=== PATIENT | male | born 1950 | race African-American/Black ===

== ENCOUNTER 2018-12-31 09:40 | Outpatient (CLI) | payer MEDICARE, MEDICAID ==
[2018-12-31 10:15] LABS: APPEARANCE,URINE CLEAR; BILIRUBIN, URINE NEGATIVE (NEGATIVE); COLOR,URINE PALE YELLOW; GLUCOSE, URINE (UA) NEGATIVE (NEGATIVE); KETONES,URINE NEGATIVE (NEGATIVE); LEUKOCYTE ESTERASE ,URINE NEGATIVE (NEGATIVE); NITRITE,URINE NEGATIVE (NEGATIVE); PH,URINE 8 (4.5-8.0); PROTEIN,URINE 3+ (NEGATIVE); UROBILINOGEN,URINE NORMAL MG/DL (0.0-1.0)
[2018-12-31 10:17] LABS: BASOPHILS % (AUTO) 1.2 % (0.0-2.0); EOSINOPHILS % (AUTO) 5.6 % (0.0-3.0); HEMATOCRIT 31.2 % (42.0-52.0); HEMOGLOBIN 10.2 G/DL (14.2-18.0); LYMPHOCYTES % (AUTO) 25.3 % (20.0-45.0); MEAN CORPUSCULAR VOLUME 85 FL (80-99); MONOCYTES % (AUTO) 10.3 % (1.0-10.0); NEUTROPHILS % (AUTO) 57.6 % (45.0-75.0); PLATELET COUNT 104 K/UL (150-450); RED BLOOD COUNT 3.67 M/UL (4.70-6.10); RED CELL DISTRIBUTION WIDTH 13.8 % (11.6-14.8); WHITE BLOOD COUNT 5.6 K/UL (4.8-10.8)
[2018-12-31 10:36] LABS: ALANINE AMINOTRANSFERASE 16 U/L (12-78); ALBUMIN 3.2 G/DL (3.4-5.0); ALBUMIN/GLOBULIN RATIO 0.6 (1.0-2.7); ALKALINE PHOSPHATASE 155 U/L (46-116); ANION GAP 11 mmol/L (5-15); ASPARTATE AMINO TRANSFERASE 24 U/L (15-37); BILIRUBIN,TOTAL 0.3 MG/DL (0.2-1.0); BLOOD UREA NITROGEN 15 mg/dL (7-18); CALCIUM 9.2 MG/DL (8.5-10.1); CARBON DIOXIDE 27 MMOL/L (21-32); CHLORIDE 103 MMOL/L (98-107); CHOLESTEROL 152 MG/DL (< 200); CREATININE 1.5 MG/DL (0.55-1.30); HDL CHOLESTEROL 46 MG/DL (40-60); SODIUM 141 MMOL/L (136-145); TRIGLYCERIDES 99 MG/DL (30-150)
== END 2018-12-31 11:40 | disposition home or self-care (01) ==
LOC: LAB 09:40
DX: I10 Essential (primary) hypertension (principal); E11.9 Type 2 diabetes mellitus without complications
CPT/HCPCS: 36415; 80053; 80061; 81001; 83036; 85025

== ENCOUNTER 2019-11-02 12:54 | Emergency (ER) | payer MEDICARE, MEDICAID ==
[~2019-11-02] VITALS: Ht 170.2 cm; Wt 104.3 kg
[~2019-11-02 12:54] MED LIST: ASPIRIN81 MG ORAL; DUONEB 0.5-3(2.53 ML HHN; FUROSEMIDE40 MG ORAL; GABAPENTIN800 MG ORAL; LISINOPRIL20 MG ORAL; METFORMIN HCL850 M1 ORAL; METHADONE HCL10 MG ORAL; MINOXIDIL10 MG PO; NORVASC5 MG ORAL; PANTOPRAZOLE SO40 MG ORAL; empagliflozin PO
[2019-11-02 13:15] VITALS: BP 170/52
--- NOTE | 2019-11-02 13:15 | NUR ---
ED Nurse Note: Patient walked in to ER with cane, c/o twiching muscles all over the body. Stated fell so weak x 2 weeks. Patient presented weak, AAO x4, VSS at this time, skin is warm to touch. IV established on leftb AC 20 ga, blood specimen collected sent down.
--- NOTE | 2019-11-02 13:48 | Emergency Room Report ---
History of Present Illness General Chief Complaint: General Complaint Source: Patient Present Illness HPI Disclaimer: Please note that this report is being documented using sliceX technology. This can lead to erroneous entry secondary to incorrect interpretation by the dictating instrument. HPI: 69-year-old male presents for evaluation of unsteady gait and twitching. Symptoms present for approximately 2 weeks. He cannot recall a specific trauma or inciting event. He notes increasingly uncontrollable twitches of his upper and lower extremities causing his knees to buckle. He also complaining of an unsteady gait noting difficulty with balance over the past 2 weeks. Symptoms appear to be getting worse. Denies headache, visual changes, changes in speech , sensation, strength. No prior history of CVA. He has a history of hypertension extensive smoking history. PMH: Hypertension, CHF, CKD PSH: Cholecystectomy Allergies: Denies Social Hx: Extensive smoking history Allergies: Coded Allergies: No Known Allergies (Unverified , 07/21/19) COVID-19 Screening Contact w/high risk pt: No Recent Travel to affected area: No Experienced COVID-19 symptoms?: No Nursing Documentation-PMH Past Medical History: No History, Except For Hx Cardiac Problems: Yes Hx Hypertension: Yes Hx Pacemaker: No Hx Asthma: No Hx COPD: Yes Hx Diabetes: Yes Hx Cancer: No Hx Gastrointestinal Problems: No Hx Dialysis: No Hx Neurological Problems: No Hx Cerebrovascular Accident: No Hx Seizures: No Review of Systems All Other Systems: negative except mentioned in HPI Physical Exam Vital Signs Date Time Temp Pulse Resp B/P (MAP) Pulse Ox O2 Delivery O2 Flow Rate FiO2 11/02/19 12:58 97.5 101 18 170/52 (91) 96 Room Air General: Awake and alert, no acute distress HEENT: NC/AT. EOMI. PERRLA. Visual whatley are full. No nystagmus. Facial expressions are symmetrical. No facial droop. Cardiovascular: RRR. S1 and S2 normal. No murmur appreciated Resp: Normal work of breathing. No cough, wheezing or crackles appreciated Abdomen: Abdomen is soft, nondistended. Nontender Skin: Midline abdominal surgical scars clean dry and intact MSK: Normal tone and bulk. Moving all extremities. No obvious deformity. There is no drift in the upper or lower extremities bilaterally. Neuro: Awake and alert. Mentating appropriately. Facial expression symmetrical. No dysarthria, no ataxia on [id number] or [id number] testing. Sensation to light touch is intact over the upper and lower extremities. The patient has intact speech with good repetition, comprehension. Fund of knowledge is full. No aphasia, no neglect. NIH: 0 Medical Decision Making ER Course 69-year-old male presents for evaluation of 2 weeks unsteady gait and uncontrollable twitching of the extremities. Differential includes was not limited to dehydration, electrolyte abnormality, focal seizures, CVA, TIA, atypical migraine. Patient's NIH score is 0 however will obtain a stat CT to evaluate for intracranial infarct though the patient is out of the window for acute intervention. We will also draw broad labs start IV fluids. Disposition depending on lab and imaging results. Patient was signed out to oncoming provider, Dr. Hardy, pending CT and lab results Last Vital Signs Date Time Temp Pulse Resp B/P (MAP) Pulse Ox O2 Delivery O2 Flow Rate FiO2 11/02/19 12:58 97.5 101 18 170/52 (91) 96 Room Air Signed Out To: Dr. Hardy Scripts Lorazepam* (ATIVAN*) 0.5 Mg Tablet 0.5 MG ORAL DAILY for spasm, #10 TAB Prov: Tirso Hardy MD 11/02/19 Referrals: Jarek Shoemaker MD (PCP) Lebron Gresham MD Nov 02, 2019 13:48
--- NOTE | 2019-11-02 13:49 | NUR ---
ED Nurse Note: returned from ct no new s/s. remains A/Ox4
--- NOTE | 2019-11-02 13:58 | Diagnostic Imaging Report ---
Indications: Blurred vision Technique: Spiral acquisitions obtained through the brain. Angled axial and coronal 5 x 5 mm slices were reconstructed. Total dose length product 1045 mGycm. CTDI vol(s) 53 mGy. Dose reduction achieved using automated exposure control Comparison: None. Findings: No acute intracranial hemorrhage or edema. No mass effect nor midline shift. Normal size ventricles and extra-axial CSF spaces. Normal west-white differentiation. The mastoids are clear. Visualized orbits and sinuses are unremarkable. The calvarium is intact. Impression: Negative The CT scanner at [facility] is accredited by the [employer] and the scans are performed using protocols designed to limit radiation exposure to as low as reasonably achievable to attain images of sufficient resolution adequate for diagnostic evaluation.
[2019-11-02 14:01] LABS: BASOPHILS % (AUTO) 2.1 % (0.0-2.0); EOSINOPHILS % (AUTO) 5.5 % (0.0-3.0); HEMATOCRIT 29.6 % (42.0-52.0); HEMOGLOBIN 9.6 G/DL (14.2-18.0); LYMPHOCYTES % (AUTO) 17.8 % (20.0-45.0); MEAN CORPUSCULAR VOLUME 80 FL (80-99); MONOCYTES % (AUTO) 13.4 % (1.0-10.0); NEUTROPHILS % (AUTO) 61.2 % (45.0-75.0); PLATELET COUNT 126 K/UL (150-450); RED BLOOD COUNT 3.69 M/UL (4.70-6.10); RED CELL DISTRIBUTION WIDTH 13.1 % (11.6-14.8); WHITE BLOOD COUNT 6.2 K/UL (4.8-10.8)
[2019-11-02 14:11] LABS: ANION GAP 11 mmol/L (5-15); BLOOD UREA NITROGEN 64 mg/dL (7-18); CALCIUM 9.1 MG/DL (8.5-10.1); CARBON DIOXIDE 30 MMOL/L (21-32); CHLORIDE 96 MMOL/L (98-107); CREATININE 3.4 MG/DL (0.55-1.30); POTASSIUM 3.8 MMOL/L (3.5-5.1); SODIUM 137 MMOL/L (136-145)
[2019-11-02 14:15] LABS: ALANINE AMINOTRANSFERASE 15 U/L (12-78); ALBUMIN 3.7 G/DL (3.4-5.0); ALBUMIN/GLOBULIN RATIO 0.7 (1.0-2.7); ALKALINE PHOSPHATASE 146 U/L (46-116); ASPARTATE AMINO TRANSFERASE 36 U/L (15-37); BILIRUBIN,TOTAL 0.3 MG/DL (0.2-1.0); CHOLESTEROL 165 MG/DL (< 200); HDL CHOLESTEROL 51 MG/DL (40-60); TRIGLYCERIDES 116 MG/DL (30-150)
--- NOTE | 2019-11-02 19:10 | NUR ---
ED Nurse Note: Report received from GRACIELA Ness. Pt is aaox4, no acute distress noted. Will cont. to monitor.
[2019-11-02] MEDS ORDERED: ATIVAN0.5 MG ORAL (19:27)
[2019-11-02 19:45] VITALS: BP 149/83
--- NOTE | 2019-11-02 19:45 | NUR ---
ER DISCHARGE NOTE: Patient is cleared to be discharged per ERMD, pt is aox4, on room air, with stable vital signs. pt was given dc and prescription instructions, pt was able to verbalize understanding, pt id band and iv site removed without complications. pt is able to ambulate with steady gait. pt took all belongings.
== END 2019-11-02 19:45 | disposition home or self-care (01) ==
LOC: EMR 13:19
DX: R26.81 Unsteadiness on feet (principal); R25.3 Fasciculation; Z87.891 Personal history of nicotine dependence; J44.9 Chronic obstructive pulmonary disease, unspecified; I13.0 Hypertensive heart and chronic kidney disease with heart failure and stage 1 through stage 4 chronic kidney disease, or unspecified chronic kidney disease; E11.22 Type 2 diabetes mellitus with diabetic chronic kidney disease; N18.9 Chronic kidney disease, unspecified; I50.9 Heart failure, unspecified
CPT/HCPCS: 36415; 70450; 80053; 80061; 83735; 84100; 84443; 85025; 85610; 85730; 93005; 99284

== ENCOUNTER → 2020-04-02 | Outpatient (CLI) | payer MEDICARE, MEDICAID ==
[~2020-04-02] MED LIST changes: +ATIVAN0.5 MG ORAL
--- NOTE | 2020-04-02 14:10 | Diagnostic Imaging Report ---
Indication: Abdominal distention Technique: Dickson-scale and duplex images of the upper abdomen were obtained Comparison: Findings: Gallbladder has been removed. Common bile duct measures 7 mm in diameter. No intrahepatic biliary ductal dilatation. Liver demonstrates normal echogenicity, no focal abnormality. Portal vein and hepatic veins are patent. Pancreas is unremarkable. Spleen is unremarkable. Left kidney measures 9.3 cm in length. Right kidney measures 10.7 cm length. Both kidneys demonstrate normal echogenicity. There is no hydronephrosis. Left kidney demonstrates a small cyst. . Abdominal aorta is partially obscured by bowel gas, visualized portions are non-aneurysmal . There is a questionable midline ventral hernia versus diastasis of the rectus abdominis tendon, not well delineated. Impression: Possible midline ventral hernia. Consider CT to clarify Prior cholecystectomy. Negative for dilated bile ducts Small left renal cyst incidentally noted Note nonvisualization of portions of the abdominal aorta
== END | disposition home or self-care (01) ==
LOC: ULS 10:05
DX: R14.0 Abdominal distension (gaseous) (principal); Z90.49 Acquired absence of other specified parts of digestive tract; N28.1 Cyst of kidney, acquired
CPT/HCPCS: 76700

== ENCOUNTER 2020-06-19 13:47 | Inpatient (IN) | payer MEDICARE, MEDICAID ==
[~2020-06-19] VITALS: Ht 167.6 cm; Wt 82.1 kg
--- NOTE | 2020-06-19 14:29 | Emergency Room Report ---
History of Present Illness General Chief Complaint: Dyspnea/Respdistress Source: Patient, Medical Record Present Illness HPI Patient is a 70-year-old male who presents for increased shortness of breath and difficulty with increased leg swelling. Recent hospitalization at [facility]. Patient had gradual increased leg swelling over the past 1 week. Had recently had his Lasix dose increased and normally is on 40 mg a day. Currently is taking 80 mg. Increase generalized weakness. Reports of increased bilateral leg pain worse on the right side. 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 COVID-19 Screening: Negative COVID-19 COVID-19 Testing Source: EMBLEM DRAWER IN Patient History Past Medical History: see triage record Past Surgical History: marko Reviewed Nursing Documentation: PMH: Agreed; PSxH: Agreed Nursing Documentation-PMH Past Medical History: No History, Except For Hx Cardiac Problems: Yes Hx Hypertension: Yes Hx Pacemaker: No Hx Asthma: No Hx COPD: Yes Hx Diabetes: Yes Hx Cancer: No Hx Gastrointestinal Problems: No Hx Dialysis: No Hx Neurological Problems: No Hx Cerebrovascular Accident: No Hx Seizures: No Review of Systems All Other Systems: negative except mentioned in HPI Physical Exam Vital Signs Date Time Temp Pulse Resp B/P (MAP) Pulse Ox O2 Delivery O2 Flow Rate FiO2 06/19/20 14:10 99.9 114 18 118/65 (82) 90 Room Air General Appearance: no apparent distress, alert, GCS 15, Chronically Ill ENT: normal ENT inspection Neck: normal inspection Respiratory: normal inspection, lungs clear Cardiovascular #1: normal inspection, edema - Bilateral lower extremity edema, right greater than left Gastrointestinal: normal inspection, soft Musculoskeletal: normal inspection, decreased range of motion Neurologic: alert, datapower consultant III-XII nml as tested, oriented x3 Skin: no rash, other - bilateral edema Medical Decision Making Diagnostic Impression: Primary Impression: COPD (chronic obstructive pulmonary disease) Additional Impressions: CHF (congestive heart failure) Renal disease ER Course Patient presented for increased shortness of breath and generalized weakness. Differential diagnosis include was not limited to fluid overload, electrolyte abnormality, pneumonia among others. A EKG interpreted by me showed atrial flutter with variable block with rate of [address] or T wave changes noted.Patient has some pedal edema and tachycardia related to atrial flutter.Patient was discussed with Dr. Jarek Shoemaker who agreed to admit the patient due to fluid overload and renal disease. Duplex ultrasound was subsequently ordered to evaluate for possible DVT. Patient is currently in stable condition. Labs Test 06/19/20 14:55 White Blood Count 8.7 K/UL (4.8-10.8) Red Blood Count 3.15 M/UL (4.70-6.10) Hemoglobin 8.8 G/DL (14.2-18.0) Hematocrit 26.8 % (42.0-52.0) Mean Corpuscular Volume 85 FL (80-99) Mean Corpuscular Hemoglobin 28.0 PG (27.0-31.0) Mean Corpuscular Hemoglobin Concent 32.8 G/DL (32.0-36.0) Red Cell Distribution Width 17.8 % (11.6-14.8) Platelet Count 133 K/UL (150-450) Mean Platelet Volume 10.2 FL (6.5-10.1) Neutrophils (%) (Auto) 71.8 % (45.0-75.0) Lymphocytes (%) (Auto) 10.9 % (20.0-45.0) Monocytes (%) (Auto) 14.2 % (1.0-10.0) Eosinophils (%) (Auto) 0.9 % (0.0-3.0) Basophils (%) (Auto) 2.3 % (0.0-2.0) D-Dimer 4.70 mg/L FEU (0.00-0.49) Sodium Level 135 MMOL/L (136-145) Potassium Level 3.9 MMOL/L (3.5-5.1) Chloride Level 100 MMOL/L (98-107) Carbon Dioxide Level 26 MMOL/L (21-32) Anion Gap 9 mmol/L (5-15) Blood Urea Nitrogen 59 mg/dL (7-18) Creatinine 3.4 MG/DL (0.55-1.30) Estimat Glomerular Filtration Rate 21.7 mL/min (>60) Glucose Level 129 MG/DL (74-106) Lactic Acid Level 1.20 mmol/L (0.4-2.0) Calcium Level 8.3 MG/DL (8.5-10.1) Total Bilirubin 0.5 MG/DL (0.2-1.0) Aspartate Amino Transf (AST/SGOT) 36 U/L (15-37) Alanine Aminotransferase (ALT/SGPT) 25 U/L (12-78) Alkaline Phosphatase 124 U/L (46-116) Troponin I 0.020 ng/mL (0.000-0.056) Pro-B-Type Natriuretic Peptide 38989 pg/mL (0-125) Total Protein 8.5 G/DL (6.4-8.2) Albumin 2.8 G/DL (3.4-5.0) Globulin 5.7 g/dL Albumin/Globulin Ratio 0.5 (1.0-2.7) Lipase 53 U/L (73-393) Last Vital Signs Date Time Temp Pulse Resp B/P (MAP) Pulse Ox O2 Delivery O2 Flow Rate FiO2 06/19/20 14:10 99.9 114 18 118/65 (82) 90 Room Air Status: improved Disposition: ADMITTED INPATIENT Condition: Stable Tirso Hardy MD Jun 19, 2020 14:29
[2020-06-19 14:30] VITALS: BP 118/65
--- NOTE | 2020-06-19 15:07 | Diagnostic Imaging Report ---
Indication: Reason For Exam: SOB Technique: Single AP view of the chest. Comparison: Chest radiograph dated 07/26/2019 Findings: The cardiomediastinal silhouette is unchanged, with persistent cardiomegaly. Stable pulmonary vascular congestion. There is a streaky right infrahilar airspace opacity and left basilar airspace opacity. No pneumothorax. No pleural effusion. No acute osseous abnormality. IMPRESSION: Right infrahilar and left basilar airspace opacity which could represent atelectasis but pneumonia should be excluded clinically.
[2020-06-19 16:22] LABS: CALCIUM 8.3 MG/DL (8.5-10.1); CREATININE 3.4 MG/DL (0.55-1.30); POTASSIUM 3.9 MMOL/L (3.5-5.1)
[2020-06-19 16:23] LABS: BASOPHILS % (AUTO) 2.3 % (0.0-2.0); EOSINOPHILS % (AUTO) 0.9 % (0.0-3.0); HEMATOCRIT 26.8 % (42.0-52.0); HEMOGLOBIN 8.8 G/DL (14.2-18.0); LYMPHOCYTES % (AUTO) 10.9 % (20.0-45.0); MEAN CORPUSCULAR VOLUME 85 FL (80-99); MONOCYTES % (AUTO) 14.2 % (1.0-10.0); NEUTROPHILS % (AUTO) 71.8 % (45.0-75.0); PLATELET COUNT 133 K/UL (150-450); RED BLOOD COUNT 3.15 M/UL (4.70-6.10); RED CELL DISTRIBUTION WIDTH 17.8 % (11.6-14.8); WHITE BLOOD COUNT 8.7 K/UL (4.8-10.8)
[2020-06-19 16:32] LABS: ALBUMIN 2.8 G/DL (3.4-5.0); ALBUMIN/GLOBULIN RATIO 0.5 (1.0-2.7); BILIRUBIN,TOTAL 0.5 MG/DL (0.2-1.0)
[2020-06-19 18:12] VITALS: BP_SYST 111; BP_SYST 121; BP_DIAS 63; BP_DIAS 67
[2020-06-19 20:00] VITALS: BP 133/57
[2020-06-19 22:09] VITALS: BP 132/60
[2020-06-19] MEDS ORDERED: Acetaminophen 650 MG SUPP RECTAL PRN (22:45)
[2020-06-19] MEDS ORDERED: Albuterol/Ipratropium 3ml neb HHN PRN (22:45)
[2020-06-20 00:27] VITALS: BP 121/73
[2020-06-20 03:45] LABS: APPEARANCE,URINE CLEAR; BILIRUBIN, URINE NEGATIVE (NEGATIVE); COLOR,URINE PALE YELLOW; GLUCOSE, URINE (UA) 3+ (NEGATIVE); KETONES,URINE NEGATIVE (NEGATIVE); LEUKOCYTE ESTERASE ,URINE NEGATIVE (NEGATIVE); NITRITE,URINE NEGATIVE (NEGATIVE); PH,URINE 5 (4.5-8.0); PROTEIN,URINE 2+ (NEGATIVE); UROBILINOGEN,URINE NORMAL MG/DL (0.0-1.0)
[2020-06-20 08:00] VITALS: BP 116/63
[2020-06-20] MEDS ORDERED: Aspirin Baby 81mg ORAL SCH (09:00)
[2020-06-20] MEDS: Minoxidil 10mg tab ORAL SCH ×2 (09:09→17:36)
[2020-06-20] MEDS: Heparin 5000 units/ml inj SUBQ SCH ×2 (09:09→20:55)
[2020-06-20] MEDS: Lisinopril 20mg tab ORAL SCH ×2 (09:13→17:37)
[2020-06-20] MEDS: LORazepam 0.5mg tab ORAL SCH (09:13)
[2020-06-20 10:59] LABS: ANION GAP 5 mmol/L (5-15); BLOOD UREA NITROGEN 49 mg/dL (7-18); CARBON DIOXIDE 31 MMOL/L (21-32); CHLORIDE 103 MMOL/L (98-107); CHOLESTEROL 82 MG/DL (< 200); CREATININE 2.9 MG/DL (0.55-1.30); HDL CHOLESTEROL 45 MG/DL (40-60); POTASSIUM 3.1 MMOL/L (3.5-5.1); SODIUM 139 MMOL/L (136-145); TRIGLYCERIDES 36 MG/DL (30-150)
[2020-06-20] MEDS: HYDROcodone/Acetamin 10/325 tab ORAL PRN (11:21)
[2020-06-20 12:00] VITALS: BP 125/45
--- NOTE | 2020-06-20 13:01 | Consultation ---
Consult Note Assessment/Plan Renal consult dictated # [id number] Jarek Shoemaker MD Jun 20, 2020 13:01
--- NOTE | 2020-06-20 13:20 | Consultation ---
History of Present Illness General Date patient seen: Jun 20, 2020 Time patient seen: 12:30 Chief Complaint: Dyspnea/Respdistress Referring physician: DR Shoemaker Reason for Consultation: SOB, COPD management Present Illness HPI 70 years old male with past medical history of hypertension, COPD, diabetes mellitus, chronic back pain, presented to emergency department with shortness of breath and leg swelling. Patient was recently hospitalized at [facility]. Patient reported gradual increase in leg swelling over the past week. His recent Lasix dose was increased from 40 to 80 mg daily. Patient reported generalized weakness and fatigue. He also reported bilateral lower extremity leg pain w, orse on the right side and associated with shortness of breath. Upon evaluation patient was tachycardic with heart rate 114 Pulse oximetry was 90% on room air . Patient had low-grade fever 99.9. Influenza screen test was negative . Laboratory work-up revealed no leukocytosis, hemoglobin 8.8, hematocrit 26.8. ABG was stable Chemistry revealed evidence of renal failure with a BUN 59 creatinine 3.4 Glucose 129. Lactic acid 1.2. Troponin -0.02, pro BNP 39737 , ECG with A flutter with low tachy stable LFT . Albumin 2.8. TSH within normal limits. Urinalysis revealed no evidence of UTI, +2 protein. CXR showed right infrahilar and left basilar airspace opacity, possibly representing atelectasis versus pneumonia. In emergency department patient received a dose of Lasix and admitted for further management. Pulmonology consult was requested to assist in management of this patient. Allergies: Coded Allergies: No Known Allergies (Unverified , 07/21/19) Medication History Scheduled Aspirin* (Aspirin*), 81 MG ORAL DAILY, (Reported) Gabapentin* (Gabapentin*), 800 MG ORAL DAILY, (Reported) Lisinopril (Lisinopril*), 20 MG ORAL BID, (Reported) Lorazepam* (Ativan*), 0.5 MG ORAL DAILY Minoxidil* (Loniten*), 20 MG PO BID, (Reported) Pantoprazole* (Pantoprazole*), 40 MG ORAL DAILY, (Reported) [empagliflozin], 10 MG PO DAILY, (Reported) Scheduled PRN Ipratropium/Albuterol Sulfate (DuoNeb 0.5-3(2.5)mg/3ml), 3 ML HHN Q4H PRN Patient History Healthcare decision maker Resuscitation status Advanced Directive on File Past Medical/Surgical History Past Medical/Surgical History: (1) CHF (congestive heart failure) (2) DM (diabetes mellitus) (3) CKD (chronic kidney disease) (4) COPD (chronic obstructive pulmonary disease) Review of Systems Constitutional: Reports: weakness Eye: Reports: no symptoms ENT: Reports: no symptoms Respiratory: Reports: cough, shortness of breath Cardiovascular: Reports: edema - BLE R>L Gastrointestinal: Reports: no symptoms Genitourinary: Reports: no symptoms Musculoskeletal: Reports: no symptoms Skin: Reports: no symptoms Neurological: Reports: no symptoms Endocrine: Reports: other - diabetes Hematologic/Lymphatic: Reports: no symptoms Physical Exam General Appearance: WD/WN, alert Lines, tubes and drains: peripheral HEENT: normocephalic, atraumatic, anicteric, mucous membranes moist Neck: non-tender, supple Respiratory/Chest: other - scattered BL rhonchi Cardiovascular/Chest: tachycardia - A flutter with low tachy Abdomen: normal bowel sounds, non tender, soft Extremities: normal range of motion, other - edema + 3 BLE R>L Skin Exam: other - chronic venous stasis Neurologic: no motor/sensory deficits, alert, responsive Musculoskeletal: normal muscle bulk Last 24 Hour Vital Signs Date Time Temp Pulse Resp B/P (MAP) Pulse Ox O2 Delivery O2 Flow Rate FiO2 06/20/20 11:51 97.9 06/20/20 09:43 85 20 117/65 96 06/20/20 09:13 87 20 116/63 96 06/20/20 09:13 116/63 06/20/20 09:09 116/63 06/20/20 08:00 98 06/20/20 08:00 99.0 87 20 116/63 (80) 96 06/20/20 05:32 Nasal Cannula 2.0 06/20/20 04:00 97 06/20/20 03:30 99.5 102 17 120/72 100 Nasal Cannula 2.0 06/20/20 00:27 101 11 121/73 100 Nasal Cannula 2.0 06/19/20 22:09 99.9 103 21 132/60 99 Nasal Cannula 2.0 06/19/20 20:00 99.9 101 19 133/57 99 Nasal Cannula 2.0 06/19/20 18:12 99.9 109 18 111/63 100 Nasal Cannula 2.0 06/19/20 16:23 95 Nasal Cannula 2.0 06/19/20 14:30 99.9 18 118/65 90 Room Air 06/19/20 14:10 99.9 114 18 118/65 (82) 90 Room Air 06/19/20 14:00 101 21 Intake and Output 06/19/20 06/20/20 19:00 07:00 Output Total 500 ml Balance -500 ml Output Urine Total 500 ml Laboratory Tests Test 06/19/20 14:55 06/20/20 03:00 06/20/20 08:55 06/20/20 10:00 White Blood Count 8.7 K/UL (4.8-10.8) Red Blood Count 3.15 M/UL (4.70-6.10) L Hemoglobin 8.8 G/DL (14.2-18.0) L Hematocrit 26.8 % (42.0-52.0) L Mean Corpuscular Volume 85 FL (80-99) Mean Corpuscular Hemoglobin 28.0 PG (27.0-31.0) Mean Corpuscular Hemoglobin Concent 32.8 G/DL (32.0-36.0) Red Cell Distribution Width 17.8 % (11.6-14.8) H Platelet Count 133 K/UL (150-450) L Mean Platelet Volume 10.2 FL (6.5-10.1) H Neutrophils (%) (Auto) 71.8 % (45.0-75.0) Lymphocytes (%) (Auto) 10.9 % (20.0-45.0) L Monocytes (%) (Auto) 14.2 % (1.0-10.0) H Eosinophils (%) (Auto) 0.9 % (0.0-3.0) Basophils (%) (Auto) 2.3 % (0.0-2.0) H D-Dimer 4.70 mg/L FEU (0.00-0.49) H Sodium Level 135 MMOL/L (136-145) L 139 MMOL/L (136-145) Potassium Level 3.9 MMOL/L (3.5-5.1) 3.1 MMOL/L (3.5-5.1) L Chloride Level 100 MMOL/L (98-107) 103 MMOL/L (98-107) Carbon Dioxide Level 26 MMOL/L (21-32) 31 MMOL/L (21-32) Anion Gap 9 mmol/L (5-15) 5 mmol/L (5-15) Blood Urea Nitrogen 59 mg/dL (7-18) H 49 mg/dL (7-18) H Creatinine 3.4 MG/DL (0.55-1.30) H 2.9 MG/DL (0.55-1.30) H Estimat Glomerular Filtration Rate 21.7 mL/min (>60) 26.2 mL/min (>60) Glucose Level 129 MG/DL (74-106) H 140 MG/DL (74-106) H Lactic Acid Level 1.20 mmol/L (0.4-2.0) Calcium Level 8.3 MG/DL (8.5-10.1) L 8.0 MG/DL (8.5-10.1) L Total Bilirubin 0.5 MG/DL (0.2-1.0) Aspartate Amino Transf (AST/SGOT) 36 U/L (15-37) Alanine Aminotransferase (ALT/SGPT) 25 U/L (12-78) Alkaline Phosphatase 124 U/L (46-116) H Troponin I 0.020 ng/mL (0.000-0.056) Pro-B-Type Natriuretic Peptide 13134 pg/mL (0-125) H Total Protein 8.5 G/DL (6.4-8.2) H Albumin 2.8 G/DL (3.4-5.0) L Globulin 5.7 g/dL Albumin/Globulin Ratio 0.5 (1.0-2.7) L Lipase 53 U/L (73-393) L Urine Color Pale yellow Urine Appearance Clear Urine pH 5 (4.5-8.0) Urine Specific [place] 1.015 (1.005-1.035) Urine Protein 2+ (NEGATIVE) H Urine Glucose (UA) 3+ (NEGATIVE) H Urine Ketones Negative (NEGATIVE) Urine Blood Negative (NEGATIVE) Urine Nitrite Negative (NEGATIVE) Urine Bilirubin Negative (NEGATIVE) Urine Urobilinogen Normal MG/DL (0.0-1.0) Urine Leukocyte Esterase Negative (NEGATIVE) Urine RBC 0-2 /HPF (0 - 0) H Urine WBC 0 /HPF (0 - 0) Urine Squamous Epithelial Cells Few /LPF (NONE/OCC) Urine Bacteria None /HPF (NONE) Arterial Blood pH 7.386 (7.350-7.450) Arterial Blood Partial Pressure CO2 51.4 mmHg (35.0-45.0) H Arterial Blood Partial Pressure O2 89.1 mmHg (75.0-100.0) Arterial Blood HCO3 30.1 mmol/L (22.0-26.0) H Arterial Blood Oxygen Saturation 96.2 % (95-100) Arterial Blood Base Excess 4.4 (-2-2) H [place] Test Positive Hemoglobin A1c 8.2 % (4.3-6.0) H Magnesium Level 2.0 MG/DL (1.8-2.4) Triglycerides Level 36 MG/DL (30-150) Cholesterol Level 82 MG/DL (< 200) LDL Cholesterol 32 mg/dL (<100) HDL Cholesterol 45 MG/DL (40-60) Cholesterol/HDL Ratio 1.8 (3.3-4.4) L Thyroid Stimulating Hormone (TSH) 0.785 uiU/mL (0.358-3.740) Microbiology Date/Time Source Procedure Growth Status 06/19/20 15:30 Nasal Nares - Final Complete 06/19/20 15:30 Nasal Nares - Final Complete Height (Feet): 5 Height (Inches): 6.00 Weight (Pounds): 181 Medications Current Medications Medications (Trade) Dose Ordered Sig/Deedee Route PRN Reason Start Time Stop Time Status Last Admin Dose Admin Acetaminophen (Tylenol) 650 mg Q4H PRN ORAL Temp >100.5 06/19/20 22:45 07/19/20 22:44 Acetaminophen (Tylenol) 650 mg Q4H PRN RECTAL Mild Pain (Pain Scale 1-3) 06/19/20 22:45 07/19/20 22:44 Acetaminophen/ Hydrocodone Bitart ([place] 10) 1 tab Q4H PRN ORAL PAIN 4-8 06/20/20 10:45 06/27/20 10:44 06/20/20 11:21 Albuterol/ Ipratropium (Albuterol/ Ipratropium) 3 ml Q4H PRN HHN Shortness of Breath 06/19/20 22:45 06/24/20 22:44 Aspirin (ASA) 81 mg DAILY ORAL 06/20/20 09:00 08/04/20 08:59 06/20/20 09:09 Dextrose (Dextrose 50%) 25 ml Q30M PRN IV Hypoglycemia 06/19/20 22:45 09/17/20 22:44 Dextrose (Dextrose 50%) 50 ml Q30M PRN IV Hypoglycemia 06/19/20 22:45 09/17/20 22:44 Furosemide (Lasix) 40 mg BID IV 06/20/20 09:00 07/20/20 08:59 06/20/20 09:08 Gabapentin (Neurontin) 800 mg DAILY ORAL 06/20/20 09:00 07/20/20 08:59 06/20/20 09:10 Heparin Sodium (Porcine) (Heparin 5000 units/ml) 5,000 units EVERY 12 HOURS SUBQ 06/20/20 09:00 08/04/20 08:59 06/20/20 09:09 Lisinopril (PriniviL) 20 mg BID ORAL 06/20/20 09:00 07/20/20 08:59 06/20/20 09:13 Lorazepam (Ativan) 0.5 mg DAILY ORAL 06/20/20 09:00 06/27/20 08:59 06/20/20 09:13 Minoxidil (Loniten) 20 mg BID ORAL 06/20/20 09:00 09/18/20 08:59 06/20/20 09:09 Pantoprazole (Protonix) 40 mg DAILY ORAL 06/20/20 09:00 07/20/20 08:59 06/20/20 09:10 Assessment/Plan Status Narrative ASSESSMENT COPD Possible PNA SOB CHF Hypoxia TAYE on CKD ( with hx of ARF requiring initiation of HD in July 2019) Atrial flutter with low tachy Chronic venous stasis HTN DM Anemia PLAN OF CARE tele O2 titrate to keep sat above 92% bronchodilator treatment with Xopenex ATC and Duoneb prn, monitor HR closely IS , encourage use start empiric Ceftriaxone given low grade fevers, SCX if able fup with CXR venous Duplex BLE ( given tachy, SOB, r/o DVT) DVT prophylaxis diuresis monitor volumes and cardiorenal parameters ECHO prior ECHO with pEF ( July 2019) BP management monitor and correct e/lytes as needed - per nephro recs GI prophylaxis start SSI-> BS with SSI , Hgb A1c-8.2 diabetic diet and diabetic teaching monitor HH with goal to keep Hgb > 7 supportive care case discussed and evaluated by supervising physician Reny Muhammad NP Jun 20, 2020 13:20
--- NOTE | 2020-06-20 13:45 | Diagnostic Imaging Report ---
Indication:Leg pain and swelling Technique: Grayscale and duplex Doppler imaging of the veins in both lower extremities performed in real time utilizing compression and augmentation. Comparison: Lower extremity venous Doppler study dated 07/21/2019 Findings: Duplex Doppler interrogation of the veins in both lower extremity is performed from the common femoral vein to the popliteal vein. Normal venous compressibility demonstrated throughout. No thrombus identified. Waveform analysis shows good respiratory phasicity and augmentation. IMPRESSION: No evidence of deep venous thrombosis involving the lower extremities.
--- NOTE | 2020-06-20 13:58 | History & Physical ---
History and Physical History & Physicial Maco Nava MD Jun 20, 2020 13:58
--- NOTE | 2020-06-20 14:00 | Consultation ---
DATE OF CONSULTATION: 06/20/2020 NEPHROLOGY CONSULTATION CONSULTING PHYSICIAN: Jarek Shoemaker MD. REFERRING PHYSICIAN: Maco Nava MD. REASON FOR CONSULTATION: Chronic kidney disease. HISTORY OF PRESENT ILLNESS: This is a 70-year-old male with history of chronic kidney disease. He was just recently at [facility] and was admitted for fluid overload, CHF, and pericardial effusion. He had a pericardiocentesis and a pigtail placement, which was eventually removed. The patient subsequently was started on colchicine. He did well with oral Lasix later and discharged home. He comes back now with reported shortness of breath. As I interviewed him this morning, he appears to be somewhat confused and he could not give me much information. He had just received [place]. PAST MEDICAL HISTORY: Includes history of arthritis, history of hypertension, diabetes, congestive heart failure, chronic kidney disease, and COPD. SOCIAL HISTORY: History of smoking. He says he is not smoking at this time. He lives by himself. ALLERGIES: No known drug allergies. REVIEW OF SYSTEMS: Unobtainable. PHYSICAL EXAMINATION: GENERAL: The patient is an elderly male, in no acute distress. She is somewhat lethargic. VITAL SIGNS: Blood pressure 117/65, pulse 85, respirations 20, and temperature 97.9. HEENT: Somewhat pale conjunctivae. Anicteric sclerae. NECK: Supple. LUNGS: Coarse breath sounds. HEART: S1, S2 without murmurs or rubs. ABDOMEN: Soft, nontender. EXTREMITIES: Bilateral pitting edema. LABORATORY FINDINGS: The chemistry panel, as of admission, showed serum sodium 135, potassium 3.9, chloride 100, carbon dioxide 26, BUN 59, creatinine 3.4. Glucose is 129. Repeat serum creatinine is 2.9. The UA shows 2+ protein, 3+ glucose. His ABG showed a pH of 7.38, pCO2 of 51, pO2 of 89. ASSESSMENT: This is a 70-year-old male who was admitted with CHF exacerbation. He has acute on chronic renal failure. His acute renal failure may be as a result of cardiorenal syndrome, which has improved actually with diuretics. He has history of hypertension, diabetes, and chronic obstructive pulmonary disease, and he has been a smoker, although he denies smoking at this time. PLAN: The patient will be on bronchodilators, IV Lasix. Cardiology and Pulmonary consultation will be obtained. Potassium will be repleted. Labs will be followed and further adjustment will be made in the patient's regimen. An echocardiogram was ordered to make sure the patient does not have any pericardial effusion like in last admission. Thank you very much for this consultation. Jarek Shoemaker M.D. DR: [place] JOB#: [id number] CC:
[2020-06-20] MEDS: cefTRIAXone 1 GM in D5W 55 ML IVPB SCH (14:29)
[2020-06-20 16:00] VITALS: BP_SYST 130; BP_SYST 141; BP_SYST 87; BP_DIAS 58; BP_DIAS 61; BP_DIAS 77
[2020-06-20] MEDS ORDERED: Metoprolol Tartrate 5mg/5ml Inj IVP SCH (17:42)
[2020-06-20] MEDS ORDERED: NS 100 ML IVPB ONE (17:42)
[2020-06-20] MEDS ORDERED: NS 150 ML IVPB ONE (19:00)
[2020-06-20] MEDS ORDERED: Levalbuterol Inh UD 1.25mg/0.5ml HHN SCH (19:00)
--- NOTE | 2020-06-20 19:10 | Cardiology Progress Note ---
Assessment/Plan Assessment/Plan hypotension hyperdynamic lv ssytlic fucntion recent PAUL thormbus (cardioversion aborted) persistdetn afluttter with varialbe block poorly controlled chronically cri htn infilter dc diuretic ivf bolus bb of r heart rate control resume xarelto of eliquis in setting of PAUL thrombus ? need for covid testing? [id number] Objective Last 24 Hour Vital Signs Date Time Temp Pulse Resp B/P (MAP) Pulse Ox O2 Delivery O2 Flow Rate FiO2 06/20/20 17:37 87/58 06/20/20 17:36 87/58 06/20/20 16:00 97.6 128 16 87/58 (68) 97 06/20/20 16:00 138 06/20/20 12:00 104 06/20/20 12:00 97.7 74 20 125/45 (71) 96 06/20/20 11:51 97.9 06/20/20 09:43 85 20 117/65 96 06/20/20 09:13 87 20 116/63 96 06/20/20 09:13 116/63 06/20/20 09:09 116/63 06/20/20 09:00 Nasal Cannula 2.0 06/20/20 08:00 98 06/20/20 08:00 99.0 87 20 116/63 (80) 96 06/20/20 05:32 Nasal Cannula 2.0 06/20/20 04:00 97 06/20/20 03:30 99.5 102 17 120/72 100 Nasal Cannula 2.0 06/20/20 00:27 101 11 121/73 100 Nasal Cannula 2.0 06/19/20 22:09 99.9 103 21 132/60 99 Nasal Cannula 2.0 06/19/20 20:00 99.9 101 19 133/57 99 Nasal Cannula 2.0 Intake and Output 06/19/20 06/20/20 19:00 07:00 Output Total 500 ml Balance -500 ml Output Urine Total 500 ml Laboratory Tests Test 06/20/20 03:00 06/20/20 08:55 06/20/20 10:00 Urine Color Pale yellow Urine Appearance Clear Urine pH 5 (4.5-8.0) Urine Specific [place] 1.015 (1.005-1.035) Urine Protein 2+ (NEGATIVE) H Urine Glucose (UA) 3+ (NEGATIVE) H Urine Ketones Negative (NEGATIVE) Urine Blood Negative (NEGATIVE) Urine Nitrite Negative (NEGATIVE) Urine Bilirubin Negative (NEGATIVE) Urine Urobilinogen Normal MG/DL (0.0-1.0) Urine Leukocyte Esterase Negative (NEGATIVE) Urine RBC 0-2 /HPF (0 - 0) H Urine WBC 0 /HPF (0 - 0) Urine Squamous Epithelial Cells Few /LPF (NONE/OCC) Urine Bacteria None /HPF (NONE) Arterial Blood pH 7.386 (7.350-7.450) Arterial Blood Partial Pressure CO2 51.4 mmHg (35.0-45.0) H Arterial Blood Partial Pressure O2 89.1 mmHg (75.0-100.0) Arterial Blood HCO3 30.1 mmol/L (22.0-26.0) H Arterial Blood Oxygen Saturation 96.2 % (95-100) Arterial Blood Base Excess 4.4 (-2-2) H [place] Test Positive Sodium Level 139 MMOL/L (136-145) Potassium Level 3.1 MMOL/L (3.5-5.1) L Chloride Level 103 MMOL/L (98-107) Carbon Dioxide Level 31 MMOL/L (21-32) Anion Gap 5 mmol/L (5-15) Blood Urea Nitrogen 49 mg/dL (7-18) H Creatinine 2.9 MG/DL (0.55-1.30) H Estimat Glomerular Filtration Rate 26.2 mL/min (>60) Glucose Level 140 MG/DL (74-106) H Hemoglobin A1c 8.2 % (4.3-6.0) H Calcium Level 8.0 MG/DL (8.5-10.1) L Magnesium Level 2.0 MG/DL (1.8-2.4) Triglycerides Level 36 MG/DL (30-150) Cholesterol Level 82 MG/DL (< 200) LDL Cholesterol 32 mg/dL (<100) HDL Cholesterol 45 MG/DL (40-60) Cholesterol/HDL Ratio 1.8 (3.3-4.4) L Thyroid Stimulating Hormone (TSH) 0.785 uiU/mL (0.358-3.740) Microbiology Date/Time Source Procedure Growth Status 06/19/20 15:30 Nasal Nares - Final Complete 06/19/20 15:30 Nasal Nares - Final Complete Jose Juan Fischer MD Jun 20, 2020 19:10
[2020-06-20 20:00] VITALS: BP 86/43
[2020-06-20] MEDS ORDERED: NS 250 ML IVPB ONE (20:15)
--- NOTE | 2020-06-20 22:32 | Consultation ---
DATE OF CONSULTATION: 06/20/2020 CARDIOLOGY CONSULTATION CONSULTING PHYSICIAN: Jose Juan Fischer MD REFERRING PHYSICIAN: Jarek Shoemaker MD REASON FOR REFERRAL: Atrial fibrillation, tachycardia, hypotension. HISTORY OF PRESENT ILLNESS: This is an elderly gentleman who has renal insufficiency. Patient has recently been hospitalized at [facility]. He presented to the emergency room here at [facility] because of shortness of breath and increasing leg swelling. Denies any chest pains to me. He denies any shortness of breath at the present time. Denies any PND or orthopnea, uses one pillow. He does indicate that he ambulates around the house and denies getting any chest pain on exertion. He was recently in the hospital at [facility], where he had a complicated course of events. He has been having increasing swelling since leaving the hospital. The [facility] records were reviewed by me. The patient had been diagnosed with atrial flutter with rapid ventricular systolic heart failure with preserved ejection fraction. He underwent transesophageal echocardiogram for possibility of direct current cardioversion because of difficulty controlling the heart rate. During the procedure, he was noted to have left atrial thrombus. The procedure was aborted. Patient was started on some metoprolol and eventually started on anticoagulation in anticipation of future course of cardioversion. He has had a difficult time controlling his heart rate. He previously was treated with amiodarone that was discontinued in the setting of left atrial thrombus because of the small risk of chemical cardioversion in the setting of being off anticoagulation. The patient's metoprolol was increased and Xarelto was resumed in anticipation of future cardioversion. He also has a history of moderate right ventricular dysfunction and moderate pulmonary hypertension and he has had left-sided diastolic dysfunction as well. He has had a pericardial effusion status post pericardiocentesis, 110 mL removed, total of 210 per records exudative effusion including possibility of differential of infection malignancy. Cultures were negative. AFB swabs were negative. Patient was treated with a course of colchicine. PAST MEDICAL HISTORY: Also includes history of asthma, arthritis, diabetes mellitus, systemic hypertension. He also has history of chronic renal insufficiency and history of morbid obesity. ALLERGIES: He has no known drug allergies. SOCIAL HISTORY: He lives in an apartment in [place] with family members. No recreational drugs, alcohol use, tobacco use, or marijuana. Not employed at the present time. REVIEW OF SYSTEMS: GASTROINTESTINAL: He has had some nausea, vomiting, and some diarrhea. GENITOURINARY: Does make urine. No burning or bloody urine. PULMONARY: Has chronic cough, chronic shortness of breath. CONSTITUTIONAL: No fevers. He has had chronic chills. PHYSICAL EXAMINATION: GENERAL: Shows to be elderly gentleman, in no respiratory distress although he has discomfort in lower back. LUNGS: Show crackles noted at the right base more so than the left base. CARDIAC: Irregular. Tachycardic. No heaves or thrills. ABDOMEN: Soft, nontender. Positive bowel sounds. EXTREMITIES: Chronic venous stasis changes. The right lower extremity appears to be somewhat larger than the left one. The patient's echocardiogram has just been performed today, I looked at it myself. There is no evidence of pericardial tamponade. No pericardial effusion. LV function appears to be relatively well functioned. In fact, possibly even hyperdynamic in nature. Previous workup has shown at [facility] ejection fraction of 61%, PA pressure was 71. His IVC appears to be enlarged on the echocardiogram today with some evidence of dynamic cavity obliteration being documented on the echocardiogram. Telemetry shows atrial flutter with rapid ventricular response, 2:1 response and occasionally variable response. The patient's flutter has been present since the time of admission. In fact, his EKG at the time of admission was atrial flutter with variable response at a rate of 111. There were no ST or T-wave abnormalities. His blood tests so far this admission shows a white count of 8.7, hemoglobin of 8.8, and platelet count of 133. PH of 7.38, pCO2 of 51, pO2 of 89, bicarbonate of 30, and has 96% saturation. Sodium 139, potassium 3.1, chloride 103, bicarb 31, BUN 49, creatinine 2.9, and glucose of 140. A1c of 8.2. Lactic acid 1.2. Troponin less than 0.02. ProBNP of 10,000. His total cholesterol 82, LDL of 32, and HDL of 45. TSH is 0.785. D-dimer is 4.7. Urinalysis, 2+ protein and 3+ glucose. Venous duplex study of the lower extremities have been performed yesterday. No evidence of deep venous thrombosis of the lower extremities were documented. A chest x-ray performed in the emergency room shows right infrahilar and left basilar airspace opacity, which represents atelectasis, but pneumonia should be excluded as well. Patient had influenza swab done that was negative. Data from [facility] indicates that the patient had COVID antibodies excluded on 05/30/2020. No COVID antibodies are tested during this hospital admission. ASSESSMENT AND PLAN: 1. Atrial flutter, persistent, difficult to control heart rate. 2. History of left atrial appendage thrombus noted on transesophageal in May of 2019 at [facility]. 3. Hyperdynamic systolic function. 4. Chronic renal insufficiency. 5. History of diastolic dysfunction. 6. Diabetes mellitus, poorly controlled. 7. Morbid obesity. 8. History of asthma. 9. Anemia. 10. History of hypertension. Dr. Shoemaker, this patient was seen in cardiac consultation. The patient's blood pressure in the 70s to 80s. He appears not to be symptomatic from that. Patient has received some diuretics. His echocardiogram shows hyperdynamic left ventricular systolic function. I will bolus him with 250 mL of normal saline. If needed, higher dose will be administered in light of the fact that he is hypotensive. A prior attempt at cardioversion for this patient has failed due to presence of the left atrial thrombus, that procedure was aborted. He needs to be back on blood thinners. He seemed to have been on before Xarelto 15 mg in the last hospitalization at [facility], but it is not clear to me whether he was taking the medication prior to being admitted to [facility] and that medication should be resumed and if Xarelto is not available here, he should be started on Eliquis. The heart rate should be controlled with doses of metoprolol. Diuretics will be discontinued for the time being. Boluses of fluid will be administered to help with the fluid. The question is whether the patient should have any other testing such as COVID in light of his symptoms, although many of which appear to be chronic in nature. Antibiotics to be resumed as indicated and felt to be necessary at the discretion of Pulmonary. Jose Juan Fischer M.D. DR: ANUP JOB#: [id number] CC:
[2020-06-21] VITALS: BP 94/43
--- NOTE | 2020-06-21 00:45 | History and Physical Report ---
DATE OF ADMISSION: 06/19/2020 CHIEF COMPLAINT: Shortness of breath and leg edema. HISTORY OF PRESENT ILLNESS: This is a 70-year-old gentleman with past medical history significant for atrial flutter, asthma, arthritis, diabetes type 2, hypertension, chronic kidney disease, and morbid obesity, who presented to the emergency department complaining about increased shortness of breath as well as pedal edema. The patient was recently hospitalized at [facility] due to the same symptoms of shortness of breath, and noted to be in atrial flutter with rapid ventricular rate. The patient subsequently was discharged home, stated that legs have become gradually edematous and Lasix was increased from 40 mg to 80 mg. The patient increased generalized weakness, complained about lower back pain and shortness of breath associated with pedal edema. Shortly after initial evaluation in the emergency department, the patient was admitted to the hospital with worsening of right leg edema, possible due to acute congestive heart failure with atrial fibrillation, rapid ventricular rate. PAST MEDICAL HISTORY/PAST SURGICAL HISTORY: As above, history of atrial flutter, asthma, arthritis, diabetes type 2, systemic hypertension, chronic kidney disease, and morbid obesity. MEDICATIONS AT HOME: Please refer to medication reconciliation. ALLERGIES: No known drug allergies. SOCIAL HISTORY: The patient lives in an apartment. Denies any alcohol or substance abuse. He is unemployed. FAMILY HISTORY: Noncontributory. REVIEW OF SYSTEMS: Mostly as above. Denies any dysuria, frequency, or hematuria. Complained about weakness, fatigue and some diarrhea. Denies any hemoptysis or hematochezia. Complaining about leg edema, occasional cough and shortness of breath. No fever or chills. No recent sick contacts. PHYSICAL EXAMINATION: VITAL SIGNS: On admission from the emergency department, temperature 99.9, pulse of 114, respirations 18, and blood pressure 118/65. GENERAL: The patient is awake and responsive, but lethargic and sleepy. HEAD AND NECK: Pupils are equal and reactive to light. Extraocular movements are intact. Neck was supple. No JVD. LUNGS: Good air entry. No wheezing or rales. Decreased air in bases HEART: S1, S2. Tachycardic, irregular. ABDOMEN: Soft, nondistended, and nontender. Mildly obese. EXTREMITIES: +2 edema in bilateral lower extremity, right greater than left NEUROLOGIC: Very limited secondary to the patient's status. The patient is moving all extremities spontaneously, however, gait was not assessed due to the patient's status. RECTAL: Refused and deferred. GENITOURINARY: Refused and deferred. PSYCHIATRIC: Mood and affect is intact. LABORATORY AND DIAGNOSTIC DATA: On admission, WBC of 8.7, hemoglobin 8.8, hematocrit 26, platelets 133,000. Sodium 135, potassium 3.9, chloride 100, bicarb 26, BUN 59, creatinine 3.4, and GFR is 21. Glucose is 129. ProBNP is 10,083. Troponin 0.02. Lipase is 53. D-dimer is 4.70. ABG - pH of 7.38, pCO2 of 51, pO2 of 89, saturation 96%. UA - +2 protein, +3 glucose, 0 to 2 rbc's, negative leukocytes. WBC of 8.7, hemoglobin 8.8, hematocrit 26, platelet is 133,000. The patient had a chest x-ray done, right infrahilar and left basilar airspace opacities, which could represent atelectasis, but pneumonia should not be excluded. The patient had a duplex of lower extremity, no evidence of DVTs involving lower extremities. ASSESSMENT: 1. Shortness of breath and leg edema, most likely secondary to acute on chronic congestive heart failure. 2. Acute kidney injury on chronic renal insufficiency. 3. History of atrial flutter with rapid ventricular rate. 4. Lung infiltrate, possible pneumonia. 5. History of left atrial appendage thrombus in May 2019. 6. Anemia. 7. Hypertension. 8. Morbid obesity. 9. Diabetes type 2, poorly controlled. 10. Diastolic dysfunction. PLAN: 1. Admit the patient to monitored unit. 2. We will follow up with an echocardiogram. 3. Follow up with Dr. Jarek Shoemaker consultation from Nephrology, Dr. Jose Juan Fischer from Cardiology, and Dr. Jamie Carpio from Pulmonary and Critical Care. 4. Start the patient on broad spectrum antibiotic with Rocephin. 5. Follow up with the laboratory and cultures. 6. Code status is Full Code. 7. DVT prophylaxis, heparin subcutaneous. Maco Elijah, M.D. DR: CHRISS JOB#: [id number] CC:
[2020-06-21 04:00] VITALS: BP 112/66
[2020-06-21] MEDS: HYDROcodone/Acetamin 10/325 tab ORAL PRN ×2 (04:23→08:27)
[2020-06-21 08:00] VITALS: BP 121/62
[2020-06-21 08:02] LABS: CALCIUM 7.8 MG/DL (8.5-10.1); CREATININE 2.8 MG/DL (0.55-1.30); POTASSIUM 3.6 MMOL/L (3.5-5.1)
[2020-06-21] MEDS: LORazepam 0.5mg tab ORAL SCH (09:00)
--- NOTE | 2020-06-21 09:20 | Pulmonology Progress Note ---
Subjective Allergies: Coded Allergies: No Known Allergies (Unverified , 07/21/19) Subjective low-grade fever resolved oo leukocytosis pulse ox stable on 2 L O2 via NC Venous duplex BLE negative denies CP, SOB, +occasional dry cough remains in L flutter with low tachy creat trending down Objective Last 24 Hour Vital Signs Date Time Temp Pulse Resp B/P (MAP) Pulse Ox O2 Delivery O2 Flow Rate FiO2 06/21/20 08:00 98.3 129 22 121/62 (81) 97 06/21/20 04:00 117 06/21/20 04:00 98.4 115 24 112/66 (81) 98 06/21/20 00:00 117 06/21/20 00:00 98.3 114 24 94/43 (60) 96 06/20/20 21:24 97.7 06/20/20 21:00 Nasal Cannula 2.0 06/20/20 20:00 99.0 122 24 86/43 (57) 98 06/20/20 20:00 122 06/20/20 17:37 87/58 06/20/20 17:36 87/58 06/20/20 16:00 97.6 128 16 87/58 (68) 97 06/20/20 16:00 138 06/20/20 12:00 104 06/20/20 12:00 97.7 74 20 125/45 (71) 96 06/20/20 11:51 97.9 06/20/20 09:43 85 20 117/65 96 06/20/20 09:13 87 20 116/63 96 06/20/20 09:13 116/63 Intake and Output 06/20/20 06/21/20 19:00 07:00 Intake Total 1065 ml 150 ml Output Total 1200 ml Balance -135 ml 150 ml Intake Oral 910 ml IV Total 155 ml 150 ml Output Urine Total 1200 ml # Bowel Movements 2 1 Objective General Appearance: WD/WN, alert Lines, tubes and drains: peripheral HEENT: normocephalic, atraumatic, anicteric, mucous membranes moist Neck: non-tender, supple Respiratory/Chest: few isolated BL rhonchi Cardiovascular/Chest: tachycardia - A flutter with low tachy Abdomen: normal bowel sounds, non tender, soft Extremities: normal range of motion, edema + 2 BLE R>L Skin Exam: other - chronic venous stasis Neurologic: no motor/sensory deficits, alert, responsive Musculoskeletal: normal muscle bulk Microbiology Date/Time Source Procedure Growth Status 06/19/20 15:30 Nasal Nares - Final Complete 06/19/20 15:30 Nasal Nares - Final Complete 06/19/20 14:55 Blood Blood Culture - Preliminary NO GROWTH AFTER 24 HOURS Resulted 06/19/20 14:40 Blood Blood Culture - Preliminary NO GROWTH AFTER 24 HOURS Resulted Laboratory Tests 06/20/20 10:00: Sodium Level 139, Potassium Level 3.1L, Chloride Level 103, Carbon Dioxide Level 31, Anion Gap 5, Blood Urea Nitrogen 49H, Creatinine 2.9H, Estimat Glomerular Filtration Rate 26.2, Glucose Level 140H, Hemoglobin A1c 8.2H, Calcium Level 8.0L, Magnesium Level 2.0, Triglycerides Level 36, Cholesterol Level 82, LDL Cholesterol 32, HDL Cholesterol 45, Cholesterol/HDL Ratio 1.8L, Thyroid Stimulating Hormone (TSH) 0.785 06/21/20 05:25: POC Whole Blood Glucose 153H 06/21/20 06:24: Sodium Level 138, Potassium Level 3.6, Chloride Level 104, Carbon Dioxide Level 29, Anion Gap 6, Blood Urea Nitrogen 47H, Creatinine 2.8H, Estimat Glomerular Filtration Rate 27.3, Glucose Level 151H, Calcium Level 7.8L Current Medications Medications (Trade) Dose Ordered Sig/Deedee Route PRN Reason Start Time Stop Time Status Last Admin Dose Admin Acetaminophen (Tylenol) 650 mg Q4H PRN ORAL Temp >100.5 06/19/20 22:45 07/19/20 22:44 06/20/20 20:54 Acetaminophen (Tylenol) 650 mg Q4H PRN RECTAL Mild Pain (Pain Scale 1-3) 06/19/20 22:45 07/19/20 22:44 Acetaminophen/ Hydrocodone Bitart ([place] 10/325) 1 tab Q4H PRN ORAL PAIN 4-8 06/20/20 10:45 06/27/20 10:44 06/21/20 08:27 Ceftriaxone Sodium 1 gm/ Dextrose 55 ml @ 110 mls/hr Q24H IVPB 06/20/20 14:00 06/27/20 13:59 06/20/20 14:29 Dextrose (Dextrose 50%) 25 ml Q30M PRN IV Hypoglycemia 06/19/20 22:45 09/17/20 22:44 Dextrose (Dextrose 50%) 50 ml Q30M PRN IV Hypoglycemia 06/19/20 22:45 09/17/20 22:44 Gabapentin (Neurontin) 800 mg DAILY ORAL 06/20/20 09:00 07/20/20 08:59 06/20/20 09:10 Lorazepam (Ativan) 0.5 mg DAILY ORAL 06/20/20 09:00 06/27/20 08:59 06/20/20 09:13 Metoprolol Tartrate (Lopressor) 2.5 mg Q5MIN X 3 IVP 06/20/20 17:42 09/18/20 17:41 Pantoprazole (Protonix) 40 mg DAILY ORAL 06/20/20 09:00 07/20/20 08:59 06/20/20 09:10 Rivaroxaban (Xarelto) 15 mg DAILY ORAL 06/21/20 09:00 09/19/20 08:59 Assessment/Plan Assessment/Plan ASSESSMENT COPD Possible PNA SOB CHF Hypoxia TAYE on CKD ( with hx of ARF requiring initiation of HD in July 2019) Atrial flutter RVR Left atrial appendage thrombus ( failed ablation) Chronic venous stasis HTN DM Anemia PLAN OF CARE tele O2 titrate to keep sat above 92%, stable on 2 L o2 hold bronchodilator treatment with Xopenex for now, given tachy IS , encourage use continue empiric Ceftriaxone , fevers resolved CXR in am SCX if able COVID by PCR pending BCX NGTD influenza screen NGT venous Duplex BLE NGT Xarelto resumed by cardio for L atrial thrombus ( noted on LLUVIA prior, failed ablation) off diuresis given hypotension s/p bolus, BP better monitor volumes and cardiorenal parameters ECHO with pEF off any anti HTN for now rate control with BB as needed monitor and correct e/lytes as needed - per nephro recs creat trending down GI prophylaxis BS with SSI , Hgb A1c-8.2 diabetic diet and diabetic teaching monitor HH with goal to keep Hgb > 7 pain management PT eval and Rx supportive care case discussed and evaluated by supervising physician Reny Muhammad NP Jun 21, 2020 09:20 Jamie Carpio MD Jun 21, 2020 13:22
[2020-06-21] MEDS: Xarelto 15mg tab ORAL SCH (10:09)
--- NOTE | 2020-06-21 11:52 | Diagnostic Imaging Report ---
Indication: Shortness of breath, abdominal pain. Technique: Noncontrast CT of the chest, abdomen and pelvis utilizing automated exposure control. Axial, sagittal and coronal reformats presented. CT dose: Total DLP 574.8 mGycm; CTDI vol 8.9 mGy Comparison: None Findings: Please note that evaluation of the mediastinum, abdominal and pelvic viscera and vascular structures is limited without the use of intravenous and oral contrast. Within these limitations the following observations are made: CT chest: Small infiltrates are noted in the left lung apex (for example axial image #14 and 22). There is a small right pleural effusion and trace left pleural effusion. There is adjacent small consolidations with air bronchograms in the bilateral lower lobes. There is no pneumothorax. Heart is enlarged. There is a small to moderate pericardial effusion which measures up to 11 mm in maximal thickness. The thoracic aorta appears normal in caliber. Partially imaged thyroid grossly unremarkable in appearance. Small mediastinal lymph nodes are noted. There are more prominent left axillary lymph nodes. For example an enlarged left axillary lymph node measures 1.7 x 2.3 cm (axial image #23). CT abdomen/pelvis: Hepatic contour appears smooth. Patient is status post cholecystectomy. There is a subcentimeter hypodensity in segment II of the liver which is too small to characterize. The spleen is enlarged measuring 15.6 cm in AP length. Adrenal glands and pancreas grossly unremarkable. There is no urinary tract stone or hydronephrosis. Nonspecific bilateral perinephric stranding is seen. There is thickening of the wall of the bladder. Prostate is borderline enlarged. There is no free intraperitoneal air. No intra-abdominal fluid collection/abscess. Apparent thickening of the wall of the stomach. There is moderate retained stool in the colon. Appendix is normal in appearance. Abdominal aorta is normal in caliber with mild left atherosclerotic calcification. Small nonspecific retroperitoneal and pelvic lymph nodes are noted. There are multilevel degenerative changes in the spine with vacuum disc phenomenon at L4-5 and L5-S1. No acute fracture identified. Bilateral gynecomastia is seen. There is no subcutaneous fluid collection or abscess. IMPRESSION: Limited exam without intravenous and oral contrast. Within these limitations: * Small right trace left pleural effusions with adjacent atelectasis versus consolidation of the bilateral lower lobes. * Small foci of groundglass opacification in the left apex. Findings may potentially be related to a multifocal pneumonia. * Thyromegaly. * Pericardial effusion measuring up to 11 mm in thickness. * Bladder wall thickening. Correlation with urinalysis recommended to exclude cystitis. * Moderate retained stool in the colon which may suggest constipation. * No evidence of small bowel obstruction. * No intraabdominal fluid collection. * Splenomegaly * Thickening of the wall of the proximal stomach which may be related to under distention. Possibility of gastritis or neoplastic gastric wall thickening not excluded. Consider follow-up endoscopy. * Nonspecific lymphadenopathy with prominent lymph nodes noted in the left axillary region and smaller lymph nodes noted in the mediastinum, retroperitoneum and pelvis. Lymphadenopathy potentially reactive however neoplastic lymphadenopathy not excluded. Follow-up recommended. * Multilevel degenerative changes of the spine without evidence of acute fracture. The CT scanner at [facility] is accredited by the [employer] and the scans are performed using protocols designed to limit radiation exposure to as low as reasonably achievable to attain images of sufficient resolution adequate for diagnostic evaluation.
[2020-06-21 12:00] VITALS: BP 110/68
--- NOTE | 2020-06-21 14:02 | Internal Med Progress Note ---
Subjective Physician Name ElijahMaco pierce Attending Physician Jarek Shoemaker MD Current Medications Medications (Trade) Dose Ordered Sig/Deedee Route PRN Reason Start Time Stop Time Status Last Admin Dose Admin Acetaminophen (Tylenol) 650 mg Q4H PRN ORAL Temp >100.5 06/19/20 22:45 07/19/20 22:44 06/20/20 20:54 Acetaminophen (Tylenol) 650 mg Q4H PRN RECTAL Mild Pain (Pain Scale 1-3) 06/19/20 22:45 07/19/20 22:44 Acetaminophen/ Hydrocodone Bitart ([place] ) 1 tab Q4H PRN ORAL PAIN 4-8 06/20/20 10:45 06/27/20 10:44 06/21/20 08:27 Barium Sulfate (Readi-Cat 2) 450 ml NOW PRN ORAL Radiology Procedure 06/21/20 10:15 06/23/20 10:14 Ceftriaxone Sodium 1 gm/ Dextrose 55 ml @ 110 mls/hr Q24H IVPB 06/20/20 14:00 06/27/20 13:59 06/20/20 14:29 Dextrose (Dextrose 50%) 25 ml Q30M PRN IV Hypoglycemia 06/19/20 22:45 09/17/20 22:44 Dextrose (Dextrose 50%) 50 ml Q30M PRN IV Hypoglycemia 06/19/20 22:45 09/17/20 22:44 Gabapentin (Neurontin) 800 mg DAILY ORAL 06/20/20 09:00 07/20/20 08:59 06/21/20 10:09 Lorazepam (Ativan) 0.5 mg DAILY ORAL 06/20/20 09:00 06/27/20 08:59 06/20/20 09:13 Pantoprazole (Protonix) 40 mg DAILY ORAL 06/20/20 09:00 07/20/20 08:59 06/21/20 10:09 Rivaroxaban (Xarelto) 15 mg DAILY ORAL 06/21/20 09:00 09/19/20 08:59 06/21/20 10:09 Allergies: Coded Allergies: No Known Allergies (Unverified , 07/21/19) Subjective awake, alert, responsive, sitting up at the bedside, denies any chest pain or shortness of breath, BUN/creatinine 47/2.8 Objective Last Vital Signs Date Time Temp Pulse Resp B/P (MAP) Pulse Ox O2 Delivery O2 Flow Rate FiO2 06/21/20 12:00 98.4 130 18 110/68 (82) 97 06/21/20 09:00 Nasal Cannula 2.0 Laboratory Tests Test 06/21/20 05:25 06/21/20 06:24 POC Whole Blood Glucose 153 MG/DL (74-106) H Sodium Level 138 MMOL/L (136-145) Potassium Level 3.6 MMOL/L (3.5-5.1) Chloride Level 104 MMOL/L (98-107) Carbon Dioxide Level 29 MMOL/L (21-32) Anion Gap 6 mmol/L (5-15) Blood Urea Nitrogen 47 mg/dL (7-18) H Creatinine 2.8 MG/DL (0.55-1.30) H Estimat Glomerular Filtration Rate 27.3 mL/min (>60) Glucose Level 151 MG/DL (74-106) H Calcium Level 7.8 MG/DL (8.5-10.1) L Microbiology Date/Time Source Procedure Growth Status 06/19/20 15:30 Nasal Nares - Final Complete 06/19/20 15:30 Nasal Nares - Final Complete 06/19/20 14:55 Blood Blood Culture - Preliminary NO GROWTH AFTER 24 HOURS Resulted 06/19/20 14:40 Blood Blood Culture - Preliminary NO GROWTH AFTER 24 HOURS Resulted Intake and Output 06/20/20 06/21/20 19:00 07:00 Intake Total 1065 ml 150 ml Output Total 1200 ml Balance -135 ml 150 ml Intake Oral 910 ml IV Total 155 ml 150 ml Output Urine Total 1200 ml # Bowel Movements 2 1 Objective GENERAL: Awake, awake, responsive, no acute distress. HEAD AND NECK: Pupils are equal and reactive to light. Extraocular movements are intact. Neck was supple. No JVD. LUNGS: Good bilateral air entry. No wheezing or rales. Decreased air in bases HEART: S1, S2. irregular, no murmur or gallop. ABDOMEN: Soft, nondistended, and nontender. Mildly obese. EXTREMITIES: +2 edema in bilateral lower extremity, right greater than left NEUROLOGIC: [employer] 2 through 12 grossly intact, motor is 5/5 in all extremities. RECTAL: Refused and deferred. GENITOURINARY: Refused and deferred. PSYCHIATRIC: Mood and affect is intact. Assessment/Plan Assessment/Plan ASSESSMENT: 1. Shortness of breath and leg edema, most likely secondary to acute on chronic congestive heart failure. 2. Acute kidney injury on chronic renal insufficiency. 3. History of atrial flutter with rapid ventricular rate. 4. Lung infiltrate, possible pneumonia. 5. History of left atrial appendage thrombus in May 2019. 6. Anemia. 7. Hypertension. 8. Morbid obesity. 9. Diabetes type 2, poorly controlled. 10. Diastolic dysfunction. PLAN: 1. Admit the patient to monitored unit. 2. We will follow up with an echocardiogram. 3. Follow up with Dr. Jarek Shoemaker consultation from Nephrology, Dr. Jose Juan Fischer from Cardiology, and Dr. Jamie Carpio from Pulmonary and Critical Care. 4. Abx: Rocephin IV. 5. Follow up with the laboratory and cultures. 6. Code status is Full Code. 7. DVT prophylaxis, heparin subcutaneous. CT scan chest abdomen and pelvic: Limited exam without intravenous and oral contrast. Within these limitations: * Small right trace left pleural effusions with adjacent atelectasis versus consolidation of the bilateral lower lobes. * Small foci of groundglass opacification in the left apex. Findings may potentially be related to a multifocal pneumonia. * Thyromegaly. * Pericardial effusion measuring up to 11 mm in thickness. * Bladder wall thickening. Correlation with urinalysis recommended to exclude cystitis. * Moderate retained stool in the colon which may suggest constipation. * No evidence of small bowel obstruction. * No intraabdominal fluid collection. * Splenomegaly * Thickening of the wall of the proximal stomach which may be related to under distention. Possibility of gastritis or neoplastic gastric wall thickening not excluded. Consider follow-up endoscopy. * Nonspecific lymphadenopathy with prominent lymph nodes noted in the left axillary region and smaller lymph nodes noted in the mediastinum, retroperitoneum and pelvis. Lymphadenopathy potentially reactive however neoplastic lymphadenopathy not excluded. Follow-up recommended. * Multilevel degenerative changes of the spine without evidence of acute fracture. Maco Nava MD Jun 21, 2020 14:02
[2020-06-21] MEDS: cefTRIAXone 1 GM in D5W 55 ML IVPB SCH (14:23)
[2020-06-21 16:00] VITALS: BP 128/71
--- NOTE | 2020-06-21 18:23 | Cardiology Progress Note ---
Assessment/Plan Assessment/Plan hypotension improved hyperdynamic lv systolic function recent PAUL thrombus (recent cardioversion aborted) persistent aflutter with variable block poorly controlled chronically cri htn pulm infiltrate on cxr and ct lymphadenopathy splenomegaly low back pain (for 2 weeks) d/w rn multiple time to day and over nite differential between upper and lower ext bp reading although both are better 'today i ordered CT chest and abd and pelvis (non contrast ct of chest due ot renal insuf) aortic caliber not enlarge per reading but non contrast off diuretic shilpa ue po and iv metoprolol for hr control back on xarelto in setting of PAUL thrombus noted on recent LLUVIA now pending covid pcr in isolation at high risk for contrast nephropathy given his already compromised renal function , d/w dr jenkins since low back pain is not acute and aorta is not enlarge on ct, less likely that aortic dissection is present will not pursuit contrast ct of the chest at this time bb xarelto resumed Subjective Cardiovascular: Denies: chest pain, lightheadedness, palpitations Respiratory: Denies: cough, shortness of breath Gastrointestinal/Abdominal: Denies: abdominal pain, diarrhea Genitourinary: Denies: burning Subjective co lower back pain he says has been on goging for 2 weeks o radiation to the leg Objective Last 24 Hour Vital Signs Date Time Temp Pulse Resp B/P (MAP) Pulse Ox O2 Delivery O2 Flow Rate FiO2 06/21/20 16:00 97.9 128 16 128/71 (90) 100 06/21/20 16:00 118 06/21/20 12:00 98.4 130 18 110/68 (82) 97 06/21/20 12:00 136 06/21/20 09:00 Nasal Cannula 2.0 06/21/20 08:57 98.3 06/21/20 08:00 135 06/21/20 08:00 98.3 129 22 121/62 (81) 97 06/21/20 04:00 117 06/21/20 04:00 98.4 115 24 112/66 (81) 98 06/21/20 00:00 117 06/21/20 00:00 98.3 114 24 94/43 (60) 96 06/20/20 21:24 97.7 06/20/20 21:00 Nasal Cannula 2.0 06/20/20 20:00 99.0 122 24 86/43 (57) 98 06/20/20 20:00 122 General Appearance: no apparent distress, alert, patient on isolation Pulses: normal: radial (L), radial (R), femoral (L), femoral (R), PT (L), PT (R), DP (L), DP (R) Intake and Output 06/20/20 06/21/20 19:00 07:00 Intake Total 1065 ml 150 ml Output Total 1200 ml Balance -135 ml 150 ml Intake Oral 910 ml IV Total 155 ml 150 ml Output Urine Total 1200 ml # Bowel Movements 2 1 Laboratory Tests Test 06/21/20 05:25 06/21/20 06:24 POC Whole Blood Glucose 153 MG/DL (74-106) H Sodium Level 138 MMOL/L (136-145) Potassium Level 3.6 MMOL/L (3.5-5.1) Chloride Level 104 MMOL/L (98-107) Carbon Dioxide Level 29 MMOL/L (21-32) Anion Gap 6 mmol/L (5-15) Blood Urea Nitrogen 47 mg/dL (7-18) H Creatinine 2.8 MG/DL (0.55-1.30) H Estimat Glomerular Filtration Rate 27.3 mL/min (>60) Glucose Level 151 MG/DL (74-106) H Calcium Level 7.8 MG/DL (8.5-10.1) L Microbiology Date/Time Source Procedure Growth Status 06/19/20 15:30 Nasal Nares - Final Complete 06/19/20 15:30 Nasal Nares - Final Complete 06/19/20 14:55 Blood Blood Culture - Preliminary NO GROWTH AFTER 24 HOURS Resulted 06/19/20 14:40 Blood Blood Culture - Preliminary NO GROWTH AFTER 24 HOURS Resulted Objective pt now in isoaltion as PUI status so i did no persoanlly see pat i did talk iwth him veer thephoen per pulm Respiratory/Chest: few isolated BL rhonchi Cardiovascular/Chest: tachycardia - A flutter with low tachy Abdomen: normal bowel sounds, non tender, soft Extremities: normal range of motion, edema + 2 BLE R>L Jose Juan Fischer MD Jun 21, 2020 18:22
[2020-06-21 20:00] VITALS: BP 136/78
--- NOTE | 2020-06-21 21:58 | Nephrology Progress Note ---
Assessment/Plan Problem List: (1) Acute on chronic renal failure (2) CHF (congestive heart failure) (3) DM (diabetes mellitus) (4) COPD (chronic obstructive pulmonary disease) Plan hold diuretics anticoagulation discussed with Dr Fischer follow labs Subjective Subjective all noted Objective Objective Last 24 Hour Vital Signs Date Time Temp Pulse Resp B/P (MAP) Pulse Ox O2 Delivery O2 Flow Rate FiO2 06/21/20 21:02 138 136/78 06/21/20 16:00 97.9 128 16 128/71 (90) 100 06/21/20 16:00 118 06/21/20 12:00 98.4 130 18 110/68 (82) 97 06/21/20 12:00 136 06/21/20 09:00 Nasal Cannula 2.0 06/21/20 08:57 98.3 06/21/20 08:00 135 06/21/20 08:00 98.3 129 22 121/62 (81) 97 06/21/20 04:00 117 06/21/20 04:00 98.4 115 24 112/66 (81) 98 06/21/20 00:00 117 06/21/20 00:00 98.3 114 24 94/43 (60) 96 Intake and Output 06/20/20 06/21/20 19:00 07:00 Intake Total 1065 ml 150 ml Output Total 1200 ml Balance -135 ml 150 ml Intake Oral 910 ml IV Total 155 ml 150 ml Output Urine Total 1200 ml # Bowel Movements 2 1 Laboratory Tests 06/21/20 05:25: POC Whole Blood Glucose 153H 06/21/20 06:24: Sodium Level 138, Potassium Level 3.6, Chloride Level 104, Carbon Dioxide Level 29, Anion Gap 6, Blood Urea Nitrogen 47H, Creatinine 2.8H, Estimat Glomerular Filtration Rate 27.3, Glucose Level 151H, Calcium Level 7.8L 06/21/20 21:15: POC Whole Blood Glucose 179H Height (Feet): 5 Height (Inches): 6.00 Weight (Pounds): 181 Jarek Shoemaker MD Jun 21, 2020 21:57
[2020-06-22] VITALS: BP 130/67
[2020-06-22 04:00] VITALS: BP 107/70
[2020-06-22 08:00] VITALS: BP 158/80
--- NOTE | 2020-06-22 08:42 | Pulmonology Progress Note ---
Subjective Allergies: Coded Allergies: No Known Allergies (Unverified , 07/21/19) Subjective low-grade fever resolved no leukocytosis pulse ox stable on 2 L O2 via NC Venous duplex BLE negative denies CP, SOB, +occasional dry cough remains in A flutter with low tachy creat trending down currently in isolation room, awaiting for COVID by PCR results Objective Last 24 Hour Vital Signs Date Time Temp Pulse Resp B/P (MAP) Pulse Ox O2 Delivery O2 Flow Rate FiO2 06/22/20 04:00 98.7 116 20 107/70 (82) 98 06/22/20 04:00 113 06/22/20 00:00 100 06/22/20 00:00 98.4 100 24 130/67 (88) 98 06/21/20 21:02 138 136/78 06/21/20 21:00 Nasal Cannula 2.0 06/21/20 20:00 98.6 139 24 136/78 (97) 100 06/21/20 20:00 135 06/21/20 16:00 97.9 128 16 128/71 (90) 100 06/21/20 16:00 118 06/21/20 12:00 98.4 130 18 110/68 (82) 97 06/21/20 12:00 136 06/21/20 09:00 Nasal Cannula 2.0 06/21/20 08:57 98.3 Intake and Output 06/21/20 06/22/20 19:00 07:00 # Bowel Movements 1 1 Objective General Appearance: WD/WN, alert Lines, tubes and drains: peripheral HEENT: normocephalic, atraumatic, anicteric, mucous membranes moist Neck: non-tender, supple Respiratory/Chest: few isolated BL rhonchi Cardiovascular/Chest: tachycardia - A flutter with low tachy Abdomen: normal bowel sounds, non tender, soft Extremities: normal range of motion, edema + 2 BLE R>L Skin Exam: other - chronic venous stasis Neurologic: no motor/sensory deficits, alert, responsive Musculoskeletal: normal muscle bulk Microbiology Date/Time Source Procedure Growth Status 06/19/20 15:30 Nasal Nares - Final Complete 06/19/20 15:30 Nasal Nares - Final Complete 06/19/20 14:55 Blood Blood Culture - Preliminary NO GROWTH AFTER 48 HOURS Resulted 06/19/20 14:40 Blood Blood Culture - Preliminary NO GROWTH AFTER 48 HOURS Resulted Laboratory Tests 06/21/20 21:15: POC Whole Blood Glucose 179H Current Medications Medications (Trade) Dose Ordered Sig/Deedee Route PRN Reason Start Time Stop Time Status Last Admin Dose Admin Acetaminophen (Tylenol) 650 mg Q4H PRN ORAL Temp >100.5 06/19/20 22:45 07/19/20 22:44 06/20/20 20:54 Acetaminophen (Tylenol) 650 mg Q4H PRN RECTAL Mild Pain (Pain Scale 1-3) 06/19/20 22:45 07/19/20 22:44 Acetaminophen/ Hydrocodone Bitart ([place] [address]) 1 tab Q6H PRN ORAL PAIN 4-8 06/21/20 19:15 06/28/20 19:14 Barium Sulfate (Readi-Cat 2) 450 ml NOW PRN ORAL Radiology Procedure 06/21/20 10:15 06/23/20 10:14 Ceftriaxone Sodium 1 gm/ Dextrose 55 ml @ 110 mls/hr Q24H IVPB 06/20/20 14:00 06/27/20 13:59 06/21/20 14:23 Dextrose (Dextrose 50%) 25 ml Q30M PRN IV Hypoglycemia 06/19/20 22:45 09/17/20 22:44 Dextrose (Dextrose 50%) 50 ml Q30M PRN IV Hypoglycemia 06/19/20 22:45 09/17/20 22:44 Gabapentin (Neurontin) 800 mg DAILY ORAL 06/20/20 09:00 07/20/20 08:59 06/21/20 10:09 Metoprolol Tartrate (Lopressor) 25 mg Q12HR ORAL 06/21/20 21:00 09/19/20 20:59 06/21/20 21:02 Pantoprazole (Protonix) 40 mg DAILY ORAL 06/20/20 09:00 07/20/20 08:59 06/21/20 10:09 Rivaroxaban (Xarelto) 15 mg DAILY ORAL 06/21/20 09:00 09/19/20 08:59 06/21/20 10:09 Assessment/Plan Assessment/Plan ASSESSMENT COPD Possible PNA SOB CHF Hypoxia TAYE on CKD ( with hx of ARF requiring initiation of HD in July 2019) Atrial flutter RVR Left atrial appendage thrombus ( failed ablation) Chronic venous stasis HTN DM Anemia PLAN OF CARE tele O2 titrate to keep sat above 92%, stable on 2 L o2 hold bronchodilator treatment with Xopenex for now, given tachy IS , encourage use continue empiric Ceftriaxone , fevers resolved CXR this am SCX if able CT A/P revealed -Small right trace left pleural effusions with adjacent atelectasis versus consolidation of the bilateral lower lobes. - Small foci of groundglass opacification in the left apex. Findings may potentially be related to a multifocal pneumonia continue Ceftriaxone for now while waiting fro COVID 19 by PCR results if COVID NGT and CXR this am stable, will consider stop abx in am, after 3 days course BCX NGTD influenza screen NGT venous Duplex BLE NGT Xarelto was resumed by cardio for L atrial thrombus ( noted on LLUVIA prior, failed ablation) off diuresis given hypotension s/p bolus, BP better monitor volumes and cardiorenal parameters , ECHO with pEF off any anti HTN for now rate control with BB as needed monitor and correct e/lytes as needed - per nephro recs creat trending down GI prophylaxis BS with SSI , Hgb A1c-8.2 diabetic diet and diabetic teaching monitor HH with goal to keep Hgb > [address] 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
--- NOTE | 2020-06-22 08:56 | Diagnostic Imaging Report ---
EXAM: XR Chest, 1 View CLINICAL HISTORY: SOB TECHNIQUE: Frontal view of the chest. COMPARISON: Chest CT June 21, 2020 FINDINGS/IMPRESSION: Dependent consolidations, better visualized on CT scan from yesterday. Continued chest radiograph follow-up recommended. No pneumothorax. Small right parapneumonic effusion better demonstrated on previous days chest CT. Cardiomegaly.
[2020-06-22] MEDS: Xarelto 15mg tab ORAL SCH (10:03)
[2020-06-22 12:00] VITALS: BP 117/63
[2020-06-22] MEDS: cefTRIAXone 1 GM in D5W 55 ML IVPB SCH (14:31)
--- NOTE | 2020-06-22 15:00 | Nephrology Progress Note ---
Assessment/Plan Problem List: (1) Acute on chronic renal failure (2) CHF (congestive heart failure) (3) DM (diabetes mellitus) (4) COPD (chronic obstructive pulmonary disease) Plan PT anticoagulation discussed with Dr escobedo follow labs Subjective Subjective poor appetite not SOB Objective Objective Last 24 Hour Vital Signs Date Time Temp Pulse Resp B/P (MAP) Pulse Ox O2 Delivery O2 Flow Rate FiO2 06/22/20 12:00 105 06/22/20 12:00 98.5 100 18 117/63 (81) 96 06/22/20 10:03 134 158/80 06/22/20 09:00 Nasal Cannula 2.0 06/22/20 08:00 134 06/22/20 08:00 98.2 106 20 158/80 (106) 97 06/22/20 04:00 98.7 116 20 107/70 (82) 98 06/22/20 04:00 113 06/22/20 00:00 100 06/22/20 00:00 98.4 100 24 130/67 (88) 98 06/21/20 21:02 138 136/78 06/21/20 21:00 Nasal Cannula 2.0 06/21/20 20:00 98.6 139 24 136/78 (97) 100 06/21/20 20:00 135 06/21/20 16:00 97.9 128 16 128/71 (90) 100 06/21/20 16:00 118 Intake and Output 06/21/20 06/22/20 19:00 07:00 # Bowel Movements 1 1 Laboratory Tests 06/21/20 21:15: POC Whole Blood Glucose 179H Height (Feet): 5 Height (Inches): 6.00 Weight (Pounds): 181 Cardiovascular: normal rate Respiratory/Chest: lungs clear Extremities: trace edema Jarek Shoemaker MD Jun 22, 2020 15:00
[2020-06-22] MEDS ORDERED: NS 275ml ONE (15:33)
--- NOTE | 2020-06-22 15:49 | Consultation ---
Consult Note Consult Note Cardiac EP Full note dictated #[id number] Jeimy Razo MD Jun 22, 2020 15:49
[2020-06-22 16:00] VITALS: BP 115/61
--- NOTE | 2020-06-22 17:57 | Internal Med Progress Note ---
Subjective Date of Service: Jun 22, 2020 Physician Name SuzanneEric Attending Physician Jarek Shoemaker MD Current Medications Medications (Trade) Dose Ordered Sig/Deedee Route PRN Reason Start Time Stop Time Status Last Admin Dose Admin Acetaminophen (Tylenol) 650 mg Q4H PRN ORAL Temp >100.5 06/19/20 22:45 07/19/20 22:44 06/20/20 20:54 Acetaminophen (Tylenol) 650 mg Q4H PRN RECTAL Mild Pain (Pain Scale 1-3) 06/19/20 22:45 07/19/20 22:44 Acetaminophen/ Hydrocodone Bitart ([place] 10) 1 tab Q6H PRN ORAL PAIN 4-8 06/21/20 19:15 06/28/20 19:14 Barium Sulfate (Readi-Cat 2) 450 ml NOW PRN ORAL Radiology Procedure 06/21/20 10:15 06/23/20 10:14 Ceftriaxone Sodium 1 gm/ Dextrose 55 ml @ 110 mls/hr Q24H IVPB 06/20/20 14:00 06/27/20 13:59 06/22/20 14:31 Dextrose (Dextrose 50%) 25 ml Q30M PRN IV Hypoglycemia 06/19/20 22:45 09/17/20 22:44 Dextrose (Dextrose 50%) 50 ml Q30M PRN IV Hypoglycemia 06/19/20 22:45 09/17/20 22:44 Gabapentin (Neurontin) 800 mg DAILY ORAL 06/20/20 09:00 07/20/20 08:59 06/22/20 10:03 Metoprolol Tartrate (Lopressor) 25 mg Q8HR ORAL 06/22/20 16:00 09/19/20 20:59 06/22/20 16:18 Pantoprazole (Protonix) 40 mg DAILY ORAL 06/20/20 09:00 07/20/20 08:59 06/22/20 10:03 Rivaroxaban (Xarelto) 15 mg DAILY ORAL 06/21/20 09:00 09/19/20 08:59 06/22/20 10:03 Allergies: Coded Allergies: No Known Allergies (Unverified , 07/21/19) ROS Limited/Unobtainable: No Constitutional: Reports: no symptoms HEENT: Reports: no symptoms Cardiovascular: Reports: no symptoms Respiratory: Reports: shortness of breath Gastrointestinal/Abdominal: Reports: no symptoms Genitourinary: Reports: no symptoms Neurologic/Psychiatric: Reports: no symptoms Subjective 70 YO M admitted with dyspnea and edema. Cover for Int Med-Dr Nava Objective Last Vital Signs Date Time Temp Pulse Resp B/P (MAP) Pulse Ox O2 Delivery O2 Flow Rate FiO2 06/22/20 16:18 100 115/61 06/22/20 16:00 98.4 18 97 06/22/20 09:00 Nasal Cannula 2.0 Laboratory Tests Test 06/21/20 21:15 POC Whole Blood Glucose 179 MG/DL (74-106) H Microbiology Date/Time Source Procedure Growth Status 06/21/20 10:50 Nasopharynx Coronavirus COVID-19 PCR ([facility]) - Final Complete Intake and Output 06/21/20 06/22/20 18:59 06:59 # Bowel Movements 1 1 Objective Objective GENERAL: Awake, awake, responsive, no acute distress. HEAD AND NECK: Pupils are equal and reactive to light. Extraocular movements are intact. Neck was supple. No JVD. LUNGS: Good bilateral air entry. No wheezing or rales. Decreased air in bases HEART: S1, S2. irregular, no murmur or gallop. ABDOMEN: Soft, nondistended, and nontender. Mildly obese. EXTREMITIES: +2 edema in bilateral lower extremity, right greater than left NEUROLOGIC: ABRASIVE SAWYER 2 through 12 grossly intact, motor is 5/5 in all extremities. RECTAL: Refused and deferred. GENITOURINARY: Refused and deferred. PSYCHIATRIC: Mood and affect is intact. Assessment/Plan Assessment/Plan Assessment/Plan Assessment/Plan Assessment/Plan ASSESSMENT: 1. Shortness of breath and leg edema, most likely secondary to acute on chronic congestive heart failure. 2. Acute kidney injury on chronic renal insufficiency. 3. History of atrial flutter with rapid ventricular rate. 4. Lung infiltrate, possible pneumonia. 5. History of left atrial appendage thrombus in May 2019. 6. Anemia. 7. Hypertension. 8. Morbid obesity. 9. Diabetes type 2, poorly controlled. 10. Diastolic dysfunction. PLAN: 1. Admit the patient to monitored unit. 2. We will follow up with an echocardiogram. 3. Follow up with Dr. Jarek Shoemaker consultation from Nephrology, Dr. Jose Juan Fischer from Cardiology, and Dr. Jamie Caprio from Pulmonary and Critical Care. 4. Abx: Rocephin IV. 5. Follow up with the laboratory and cultures. 6. Code status is Full Code. 7. DVT prophylaxis, heparin subcutaneous Eric Palacios MD Jun 22, 2020 17:57
[2020-06-22] MEDS: HYDROcodone/Acetamin 10/325 tab ORAL PRN (19:33)
--- NOTE | 2020-06-22 19:33 | Consultation ---
DATE OF CONSULTATION: 06/22/2020 CARDIAC ELECTROPHYSIOLOGY CONSULTATION CONSULTING PHYSICIAN: Jeimy Razo MD REASON FOR CONSULT: Atrial flutter. HISTORY OF PRESENT ILLNESS: The patient is a 70-year-old man with hypertension, CKD, diabetes, and atrial flutter. He was recently treated at [facility], discharged on 06/08/2020, for shortness of breath and atrial flutter. During that admission, he was found to have a large pericardial effusion and underwent pericardiocentesis for cardiac tamponade. He also underwent LLUVIA with note of left atrial thrombus. Therefore, cardioversion was not performed. He was readmitted to [place] on 06/21/2020, with increasing weakness, shortness of breath, and low back pain. Cardiac electrophysiology evaluation was requested for assistance with management of his atrial flutter. He does not note palpitations or chest pain. He has chronic leg edema and shortness of breath with mild activity. During his last admission at [facility] and also here at [facility], his echo had shown normal left ventricular systolic function with EF 60% to 65%. He has echo done on 06/19/2020 and showed in addition, no pericardial effusion. There is no significant valvular disease. Mild pulmonary hypertension (PA pressure of 35). PAST MEDICAL HISTORY: As noted above. MEDICATIONS: Metoprolol 25 mg p.o. q.12h., [place] p.r.n., Xarelto 15 mg daily, ceftriaxone 1 g IV q.24h., Protonix 40 mg daily, gabapentin 800 mg daily, and Tylenol p.r.n.. ALLERGIES: No known drug allergies. SOCIAL HISTORY: The patient smokes about 5 cigarettes per day and has a previous history of heroin use. PHYSICAL EXAMINATION: VITAL SIGNS: Blood pressure is 117/63, pulse 105 and regular, respirations 18, and afebrile. GENERAL: Sedated, well-developed man in no acute distress. HEENT: Normocephalic and atraumatic. Pupils are equal, round, and reactive to light. Sclerae anicteric. Oral mucosa are moist. NECK: Supple. No jugular venous distention. LUNGS: Decreased breath sounds at bases. HEART: Tachycardic. Regular S1 and S2 with no murmur or S3. ABDOMEN: Soft, nontender, and nondistended. EXTREMITIES: A 2+ distal lower extremity edema, right greater than left. LABORATORY AND DIAGNOSTIC DATA: Hemoglobin 8.8, hematocrit 26.8, white blood count 8700, and platelets 133,000. Sodium 138, potassium 3.6, chloride 104, bicarbonate 29, BUN 47, creatinine 2.8, and glucose 151. EKG shows atrial flutter with ventricular rate 111 beats per minute, axis +40 degrees and nonspecific T-wave changes. Telemetry shows atrial flutter with ventricular rates 100 to 120 beats per minute. Chest x-ray shows a small right infiltrate and effusion with borderline cardiomegaly. ASSESSMENT AND RECOMMENDATIONS: The patient is a 70-year-old man with multiple medical issues as outlined above, who was admitted with shortness of breath, possible pneumonia, and is in atrial flutter. He cannot be cardioverted as his transesophageal echo last month showed a left atrial thrombus. I would favor anticoagulation for the next 3 months prior to consideration for repeat LLUVIA and cardioversion. We will continue Xarelto. We will also increase metoprolol for better control of ventricular rate. Further treatment of his pneumonia will be as per the primary team. Jeimy Razo M.D. DR: JELLY JOB#: [id number] CC:
[2020-06-22 20:00] VITALS: BP 136/76
[2020-06-23] VITALS: BP 143/80
[2020-06-23 04:00] VITALS: BP 141/83
--- NOTE | 2020-06-23 07:48 | Pulmonology Progress Note ---
Subjective ROS Limited/Unobtainable: No Allergies: Coded Allergies: No Known Allergies (Unverified , 07/21/19) Subjective no fevers COVID 19 by PCR NGT of isolation labs pending for this am CXR 06/22 with dependent consolidation ever resolved no leukocytosis pulse ox stable on 2 L O2 via NC Venous duplex BLE negative denies CP, SOB, reports +occasional cough with clear to yellow phlegm, also reports generalized weakness remains in A flutter seen and evaluated by cardio EP Objective Last 24 Hour Vital Signs Date Time Temp Pulse Resp B/P (MAP) Pulse Ox O2 Delivery O2 Flow Rate FiO2 06/23/20 06:18 96 143/80 06/23/20 04:00 106 06/23/20 04:00 96.9 106 20 141/83 (102) 96 06/23/20 00:00 96 06/23/20 00:00 96.9 96 20 143/80 (101) 96 06/22/20 21:34 80 136/76 06/22/20 21:00 Nasal Cannula 2.0 06/22/20 20:03 98.4 06/22/20 20:00 97.7 97 22 136/76 (96) 97 06/22/20 20:00 104 06/22/20 16:18 100 115/61 06/22/20 16:00 98.4 97 18 115/61 (79) 97 06/22/20 16:00 100 06/22/20 12:00 105 06/22/20 12:00 98.5 100 18 117/63 (81) 96 06/22/20 10:03 134 158/80 06/22/20 09:00 Nasal Cannula 2.0 06/22/20 08:00 134 06/22/20 08:00 98.2 106 20 158/80 (106) 97 Intake and Output 06/22/20 06/23/20 19:00 07:00 # Bowel Movements 1 Objective General Appearance: WD/WN, alert Lines, tubes and drains: peripheral HEENT: normocephalic, atraumatic, anicteric, mucous membranes moist Neck: non-tender, supple Respiratory/Chest: few isolated BL rhonchi Cardiovascular/Chest: tachycardia - A flutter with low tachy Abdomen: normal bowel sounds, non tender, soft Extremities: normal range of motion, edema + 2 BLE R>L Skin Exam: other - chronic venous stasis Neurologic: no motor/sensory deficits, alert, responsive Musculoskeletal: normal muscle bulk Microbiology Date/Time Source Procedure Growth Status 06/21/20 10:50 Nasopharynx Coronavirus COVID-19 PCR ([facility]) - Final Complete Laboratory Tests 06/22/20 20:08: POC Whole Blood Glucose [Pending] 06/23/20 05:33: POC Whole Blood Glucose 163H Current Medications Medications (Trade) Dose Ordered Sig/Deedee Route PRN Reason Start Time Stop Time Status Last Admin Dose Admin Acetaminophen (Tylenol) 650 mg Q4H PRN ORAL Temp >100.5 06/19/20 22:45 07/19/20 22:44 06/20/20 20:54 Acetaminophen (Tylenol) 650 mg Q4H PRN RECTAL Mild Pain (Pain Scale 1-3) 06/19/20 22:45 07/19/20 22:44 Acetaminophen/ Hydrocodone Bitart ([place] 10/325) 1 tab Q6H PRN ORAL PAIN 4-8 06/21/20 19:15 06/28/20 19:14 06/22/20 19:33 Barium Sulfate (Readi-Cat 2) 450 ml NOW PRN ORAL Radiology Procedure 06/21/20 10:15 06/23/20 10:14 Ceftriaxone Sodium 1 gm/ Dextrose 55 ml @ 110 mls/hr Q24H IVPB 06/20/20 14:00 06/27/20 13:59 06/22/20 14:31 Dextrose (Dextrose 50%) 25 ml Q30M PRN IV Hypoglycemia 06/19/20 22:45 09/17/20 22:44 Dextrose (Dextrose 50%) 50 ml Q30M PRN IV Hypoglycemia 06/19/20 22:45 09/17/20 22:44 Gabapentin (Neurontin) 800 mg DAILY ORAL 06/20/20 09:00 07/20/20 08:59 06/22/20 10:03 Metoprolol Tartrate (Lopressor) 25 mg Q8HR ORAL 06/22/20 16:00 09/19/20 20:59 06/23/20 06:18 Pantoprazole (Protonix) 40 mg DAILY ORAL 06/20/20 09:00 07/20/20 08:59 06/22/20 10:03 Rivaroxaban (Xarelto) 15 mg DAILY ORAL 06/21/20 09:00 09/19/20 08:59 06/22/20 10:03 Assessment/Plan Assessment/Plan ASSESSMENT COPD Possible PNA SOB CHF Hypoxia TAYE on CKD ( with hx of ARF requiring initiation of HD in July 2019) Atrial flutter RVR Left atrial appendage thrombus ( failed ablation) Chronic venous stasis HTN DM Anemia Lymphadenopathy PLAN OF CARE tele O2 titrate to keep sat above 92%, stable on 2 L o2 hold bronchodilator treatment with Xopenex for now, given tachy IS , encourage use fevers resolved CXR 06/22 with dependent consolidation SCX if able COVID 19 by PCR NGT continue CTX till 06/24 - for [address] A/P revealed -Small right trace left pleural effusions with adjacent atelectasis versus consolidation of the bilateral lower lobes. - Small foci of groundglass opacification in the left apex. Findings may potentially be related to a multifocal pneumonia continue Ceftriaxone for now while waiting fro COVID 19 by PCR results if COVID NGT and CXR this am stable, will consider stop abx in am, after [address] C /A/P also revealed -> Nonspecific lymphadenopathy with prominent lymph nodes noted in the left axillary region and smaller lymph nodes noted in the mediastinum, retroperitoneum and pelvis. Lymphadenopathy potentially reactive however neoplastic lymphadenopathy not excluded. recommended CT C/A/P to be repeated as OP to r/o lymphoproliferative disorder BCX NGTD influenza screen NGT venous Duplex BLE NGT Xarelto was resumed by cardio for L atrial thrombus ( noted on LLUVIA prior, failed ablation) off diuresis given hypotension s/p bolus, BP better monitor volumes and cardiorenal parameters , ECHO with pEF off any anti HTN for now rate control with BB as needed per cardio EP unable to cardioverted due to LA thrombus ( shown on LLUVIA last month), cardio recommends to continue a/c for 3 months, rate control with BB ( dose increased for better rate control) repeat LLUVIA and cardioversion later monitor and correct e/lytes as needed - per nephro recs creat trending down GI prophylaxis BS with SSI , Hgb A1c-8.2 diabetic diet and diabetic teaching monitor HH with goal to keep Hgb > [address] 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
[2020-06-23 08:00] VITALS: BP 158/96
[2020-06-23] MEDS: Xarelto 15mg tab ORAL SCH (08:41)
[2020-06-23 12:04] LABS: BASOPHILS % (AUTO) 1.8 % (0.0-2.0); EOSINOPHILS % (AUTO) 1.2 % (0.0-3.0); HEMATOCRIT 27.4 % (42.0-52.0); HEMOGLOBIN 9.1 G/DL (14.2-18.0); LYMPHOCYTES % (AUTO) 12.4 % (20.0-45.0); MEAN CORPUSCULAR VOLUME 84 FL (80-99); MONOCYTES % (AUTO) 7.3 % (1.0-10.0); NEUTROPHILS % (AUTO) 77.4 % (45.0-75.0); PLATELET COUNT 147 K/UL (150-450); RED BLOOD COUNT 3.24 M/UL (4.70-6.10); WHITE BLOOD COUNT 6.8 K/UL (4.8-10.8)
[2020-06-23 12:09] VITALS: BP 123/70
[2020-06-23 12:17] LABS: CALCIUM 8.8 MG/DL (8.5-10.1); CREATININE 1.9 MG/DL (0.55-1.30); POTASSIUM 3.8 MMOL/L (3.5-5.1)
[2020-06-23] MEDS: HYDROcodone/Acetamin 10/325 tab ORAL PRN (13:08)
[2020-06-23] MEDS: cefTRIAXone 1 GM in D5W 55 ML IVPB SCH (14:00)
--- NOTE | 2020-06-23 14:26 | Internal Med Progress Note ---
Subjective Date of Service: Jun 23, 2020 Physician Name Eric Palacios Attending Physician Jarek Shoemaker MD Current Medications Medications (Trade) Dose Ordered Sig/Deedee Route PRN Reason Start Time Stop Time Status Last Admin Dose Admin Acetaminophen (Tylenol) 650 mg Q4H PRN ORAL Temp >100.5 06/19/20 22:45 07/19/20 22:44 06/20/20 20:54 Acetaminophen (Tylenol) 650 mg Q4H PRN RECTAL Mild Pain (Pain Scale 1-3) 06/19/20 22:45 07/19/20 22:44 Acetaminophen/ Hydrocodone Bitart ([place] [address]) 1 tab Q6H PRN ORAL PAIN 4-8 06/21/20 19:15 06/28/20 19:14 06/23/20 13:08 Ceftriaxone Sodium 1 gm/ Dextrose 55 ml @ 110 mls/hr Q24H IVPB 06/20/20 14:00 06/27/20 13:59 06/22/20 14:31 Dextrose (Dextrose 50%) 25 ml Q30M PRN IV Hypoglycemia 06/19/20 22:45 09/17/20 22:44 Dextrose (Dextrose 50%) 50 ml Q30M PRN IV Hypoglycemia 06/19/20 22:45 09/17/20 22:44 Gabapentin (Neurontin) 800 mg DAILY ORAL 06/20/20 09:00 07/20/20 08:59 06/23/20 08:42 Metoprolol Tartrate (Lopressor) 25 mg Q8HR ORAL 06/22/20 16:00 09/19/20 20:59 06/23/20 06:18 Ondansetron HCl (Zofran) 4 mg Q4H PRN IVP Nausea & Vomiting 06/23/20 13:30 07/23/20 13:29 Pantoprazole (Protonix) 40 mg DAILY ORAL 06/20/20 09:00 07/20/20 08:59 06/23/20 08:41 Rivaroxaban (Xarelto) 15 mg DAILY ORAL 06/21/20 09:00 09/19/20 08:59 06/23/20 08:41 Allergies: Coded Allergies: No Known Allergies (Unverified , 07/21/19) ROS Limited/Unobtainable: No Constitutional: Reports: no symptoms HEENT: Reports: no symptoms Cardiovascular: Reports: no symptoms Respiratory: Reports: no symptoms Gastrointestinal/Abdominal: Reports: no symptoms Genitourinary: Reports: no symptoms Neurologic/Psychiatric: Reports: no symptoms Subjective 70 YO M admitted with dyspnea and edema. Cover for Brittney Nava Objective Last Vital Signs Date Time Temp Pulse Resp B/P (MAP) Pulse Ox O2 Delivery O2 Flow Rate FiO2 06/23/20 12:09 97.0 83 18 123/70 (87) 96 06/23/20 09:00 Nasal Cannula 2.0 Laboratory Tests Test 06/22/20 20:08 06/23/20 05:33 06/23/20 11:15 POC Whole Blood Glucose Pending 163 MG/DL (74-106) H White Blood Count 6.8 K/UL (4.8-10.8) Red Blood Count 3.24 M/UL (4.70-6.10) L Hemoglobin 9.1 G/DL (14.2-18.0) L Hematocrit 27.4 % (42.0-52.0) L Mean Corpuscular Volume 84 FL (80-99) Mean Corpuscular Hemoglobin 28.2 PG (27.0-31.0) Mean Corpuscular Hemoglobin Concent 33.4 G/DL (32.0-36.0) Red Cell Distribution Width 18.0 % (11.6-14.8) H Platelet Count 147 K/UL (150-450) L Mean Platelet Volume 8.2 FL (6.5-10.1) Neutrophils (%) (Auto) 77.4 % (45.0-75.0) H Lymphocytes (%) (Auto) 12.4 % (20.0-45.0) L Monocytes (%) (Auto) 7.3 % (1.0-10.0) Eosinophils (%) (Auto) 1.2 % (0.0-3.0) Basophils (%) (Auto) 1.8 % (0.0-2.0) Sodium Level 141 MMOL/L (136-145) Potassium Level 3.8 MMOL/L (3.5-5.1) Chloride Level 104 MMOL/L (98-107) Carbon Dioxide Level 29 MMOL/L (21-32) Anion Gap 8 mmol/L (5-15) Blood Urea Nitrogen 26 mg/dL (7-18) H Creatinine 1.9 MG/DL (0.55-1.30) H Estimat Glomerular Filtration Rate 42.5 mL/min (>60) Glucose Level 159 MG/DL (74-106) H Calcium Level 8.8 MG/DL (8.5-10.1) Microbiology Date/Time Source Procedure Growth Status 06/21/20 10:50 Nasopharynx Coronavirus COVID-19 PCR ([facility]) - Final Complete Intake and Output 06/22/20 06/23/20 19:00 07:00 # Bowel Movements 1 Objective Objective GENERAL: Awake, awake, responsive, no acute distress. HEAD AND NECK: Pupils are equal and reactive to light. Extraocular movements are intact. Neck was supple. No JVD. LUNGS: Good bilateral air entry. No wheezing or rales. Decreased air in bases HEART: S1, S2. irregular, no murmur or gallop. ABDOMEN: Soft, nondistended, and nontender. Mildly obese. EXTREMITIES: +2 edema in bilateral lower extremity, right greater than left NEUROLOGIC: BUS AND SYS INTEGRATION SENIOR MANAGER 2 through 12 grossly intact, motor is 5/5 in all extremities. RECTAL: Refused and deferred. GENITOURINARY: Refused and deferred. PSYCHIATRIC: Mood and affect is intact. Assessment/Plan Assessment/Plan Assessment/Plan Assessment/Plan Assessment/Plan ASSESSMENT: 1. Shortness of breath and leg edema, most likely secondary to acute on chronic congestive heart failure. 2. Acute kidney injury on chronic renal insufficiency. 3. History of atrial flutter with rapid ventricular rate. 4. Lung infiltrate, possible pneumonia. 5. History of left atrial appendage thrombus in May 2019. 6. Anemia. 7. Hypertension. 8. Morbid obesity. 9. Diabetes type 2, poorly controlled. 10. Diastolic dysfunction. 11. PAUL thrombus PLAN: 1. Admit the patient to monitored unit. 2. We will follow up with an echocardiogram. 3. Follow up with Dr. Jarek Shoemaker consultation from Nephrology, Dr. Jose Juan Fischer from Cardiology, and Dr. Jamie Carpio from Pulmonary and Critical Care. 4. Abx: Rocephin IV. 5. Follow up with the laboratory and cultures. 6. Code status is Full Code. 7. DVT prophylaxis=already on xarelto for PAUL thrombus Eric Palacios MD Jun 23, 2020 14:26
[2020-06-23 16:00] VITALS: BP 157/107
--- NOTE | 2020-06-23 16:43 | Cardiology Progress Note ---
Assessment/Plan Problem List: (1) Atrial flutter (2) Edema (3) COPD (chronic obstructive pulmonary disease) (4) CKD (chronic kidney disease) (5) Hypertension Status: stable, unchanged Status Narrative Pt w/ HTN, persistent AFL, s/p aborted CV due to + LLUVIA for lt atrial thrombus. He is adm w/ dyspnea and has L lower lung infiltrate, possible pneumonia v COPD exacerbation. May also have component of LV diastolic dysfunction in setting of htn and rapid AFL. Normal to hyperdynamic LV systolic function on recent ECHO Assessment/Plan Increase metoprolol for BP control and better ventricular rate control in AFL. Add amlodipine 5mg/d for HTN Continue xarelto for cva prevention in AFL. Re-attempt LLUVIA/CV in 3 months Continue iv abx, treatment for COPD and possible pneumonia per Dr. Caldwell Subjective ROS Limited/Unobtainable: No Subjective Cardiology for Dr. Fischer Mr Marrero c/o dyspnea. No palpitations or chest pain Events noted Objective Last 24 Hour Vital Signs Date Time Temp Pulse Resp B/P (MAP) Pulse Ox O2 Delivery O2 Flow Rate FiO2 06/23/20 16:00 96.9 97 22 157/107 (124) 96 06/23/20 14:46 98 165/101 06/23/20 13:38 97.0 06/23/20 12:09 97.0 83 18 123/70 (87) 96 06/23/20 12:00 108 06/23/20 09:00 Nasal Cannula 2.0 06/23/20 08:00 97.6 96 22 158/96 (116) 96 06/23/20 08:00 121 06/23/20 06:18 96 143/80 06/23/20 04:00 106 06/23/20 04:00 96.9 106 20 141/83 (102) 96 06/23/20 00:00 96 06/23/20 00:00 96.9 96 20 143/80 (101) 96 06/22/20 21:34 80 136/76 06/22/20 21:00 Nasal Cannula 2.0 06/22/20 20:03 98.4 06/22/20 20:00 97.7 97 22 136/76 (96) 97 06/22/20 20:00 104 General Appearance: WD/WN, no apparent distress EENT: PERRL/EOMI Neck: supple, no JVD Rhythm: other - atrial flutter Cardiovascular: normal rate, regular rhythm Respiratory/Chest: other - few crackles at bases Abdomen: non tender, soft Extremities: moderate edema - 2+ r LE edema, 1+ L Le edema Intake and Output 06/22/20 06/23/20 19:00 07:00 # Bowel Movements 1 Laboratory Tests Test 06/22/20 20:08 06/23/20 05:33 06/23/20 11:15 POC Whole Blood Glucose Pending 163 MG/DL (74-106) H White Blood Count 6.8 K/UL (4.8-10.8) Red Blood Count 3.24 M/UL (4.70-6.10) L Hemoglobin 9.1 G/DL (14.2-18.0) L Hematocrit 27.4 % (42.0-52.0) L Mean Corpuscular Volume 84 FL (80-99) Mean Corpuscular Hemoglobin 28.2 PG (27.0-31.0) Mean Corpuscular Hemoglobin Concent 33.4 G/DL (32.0-36.0) Red Cell Distribution Width 18.0 % (11.6-14.8) H Platelet Count 147 K/UL (150-450) L Mean Platelet Volume 8.2 FL (6.5-10.1) Neutrophils (%) (Auto) 77.4 % (45.0-75.0) H Lymphocytes (%) (Auto) 12.4 % (20.0-45.0) L Monocytes (%) (Auto) 7.3 % (1.0-10.0) Eosinophils (%) (Auto) 1.2 % (0.0-3.0) Basophils (%) (Auto) 1.8 % (0.0-2.0) Sodium Level 141 MMOL/L (136-145) Potassium Level 3.8 MMOL/L (3.5-5.1) Chloride Level 104 MMOL/L (98-107) Carbon Dioxide Level 29 MMOL/L (21-32) Anion Gap 8 mmol/L (5-15) Blood Urea Nitrogen 26 mg/dL (7-18) H Creatinine 1.9 MG/DL (0.55-1.30) H Estimat Glomerular Filtration Rate 42.5 mL/min (>60) Glucose Level 159 MG/DL (74-106) H Calcium Level 8.8 MG/DL (8.5-10.1) Microbiology Date/Time Source Procedure Growth Status 06/21/20 10:50 Nasopharynx Coronavirus COVID-19 PCR ([facility]) - Final Complete Jeimy Razo MD Jun 23, 2020 16:43
--- NOTE | 2020-06-23 19:00 | Nephrology Progress Note ---
Assessment/Plan Problem List: (1) Acute on chronic renal failure (2) CHF (congestive heart failure) (3) DM (diabetes mellitus) (4) COPD (chronic obstructive pulmonary disease) Plan PT anticoagulation discussed with GRACIELA Lynn PRN follow labs Subjective Subjective vomited today Objective Objective Last 24 Hour Vital Signs Date Time Temp Pulse Resp B/P (MAP) Pulse Ox O2 Delivery O2 Flow Rate FiO2 06/23/20 16:48 97 157/107 06/23/20 16:00 96.9 97 22 157/107 (124) 96 06/23/20 14:46 98 165/101 06/23/20 13:38 97.0 06/23/20 12:09 97.0 83 18 123/70 (87) 96 06/23/20 12:00 108 06/23/20 09:00 Nasal Cannula 2.0 06/23/20 08:00 97.6 96 22 158/96 (116) 96 06/23/20 08:00 121 06/23/20 06:18 96 143/80 06/23/20 04:00 106 06/23/20 04:00 96.9 106 20 141/83 (102) 96 06/23/20 00:00 96 06/23/20 00:00 96.9 96 20 143/80 (101) 96 06/22/20 21:34 80 136/76 06/22/20 21:00 Nasal Cannula 2.0 06/22/20 20:03 98.4 06/22/20 20:00 97.7 97 22 136/76 (96) 97 06/22/20 20:00 104 Intake and Output0 06/22/20 06/23/20 19:00 07:00 # Bowel Movements 1 Laboratory Tests 06/22/20 20:08: POC Whole Blood Glucose [Pending] 06/23/20 05:33: POC Whole Blood Glucose 163H 06/23/20 11:15: White Blood Count 6.8, Red Blood Count 3.24L, Hemoglobin 9.1L, Hematocrit 27.4L, Mean Corpuscular Volume 84, Mean Corpuscular Hemoglobin 28.2, Mean Corpuscular Hemoglobin Concent 33.4, Red Cell Distribution Width 18.0H, Platelet Count 147L, Mean Platelet Volume 8.2, Neutrophils (%) (Auto) 77.4H, Lymphocytes (%) (Auto) 12.4L, Monocytes (%) (Auto) 7.3, Eosinophils (%) (Auto) 1.2, Basophils (%) (Auto) 1.8, Sodium Level 141, Potassium Level 3.8, Chloride Level 104, Carbon Dioxide Level 29, Anion Gap 8, Blood Urea Nitrogen 26H, Creatinine 1.9H, Estimat Glomerular Filtration Rate 42.5, Glucose Level 159H, Calcium Level 8.8 Height (Feet): 5 Height (Inches): 6.00 Weight (Pounds): 181 Cardiovascular: normal rate Respiratory/Chest: normal breath sounds Abdomen: soft Extremities: trace edema Jarek Shoemaker MD Jun 23, 2020 19:00
[2020-06-23 20:00] VITALS: BP 159/100
[2020-06-24] VITALS: BP 165/98
[2020-06-24] MEDS ORDERED: Metoprolol Tartrate 50mg tab ORAL SCH (02:00)
[2020-06-24 04:00] VITALS: BP 144/98
[2020-06-24] MEDS: HYDROcodone/Acetamin 10/325 tab ORAL PRN (06:10)
[2020-06-24 08:00] VITALS: BP 154/99
[2020-06-24] MEDS: Xarelto 15mg tab ORAL SCH (08:26)
[2020-06-24 09:31] LABS: EOSINOPHILS % (AUTO) 1.2 % (0.0-3.0); HEMATOCRIT 30.1 % (42.0-52.0); HEMOGLOBIN 9.8 G/DL (14.2-18.0); MEAN CORPUSCULAR VOLUME 84 FL (80-99); MONOCYTES % (AUTO) 7.2 % (1.0-10.0); NEUTROPHILS % (AUTO) 81.6 % (45.0-75.0); PLATELET COUNT 135 K/UL (150-450); RED BLOOD COUNT 3.59 M/UL (4.70-6.10); RED CELL DISTRIBUTION WIDTH 18.5 % (11.6-14.8); WHITE BLOOD COUNT 7.8 K/UL (4.8-10.8)
[2020-06-24 09:54] LABS: CALCIUM 8.5 MG/DL (8.5-10.1); CREATININE 1.6 MG/DL (0.55-1.30); POTASSIUM 3.9 MMOL/L (3.5-5.1)
--- NOTE | 2020-06-24 10:30 | Pulmonology Progress Note ---
Subjective ROS Limited/Unobtainable: No Allergies: Coded Allergies: No Known Allergies (Unverified , 07/21/19) Subjective no fevers COVID 19 by PCR NGT of isolation CXR 06/22 with dependent consolidation no leukocytosis pulse ox stable on 2 L O2 via NC Venous duplex BLE negative denies CP, SOB, reports +occasional cough with clear to yellow phlegm, also reports generalized weakness remains in A flutter seen and evaluated by cardio EP this am reports dysuria, urine with blood small amount Hgb stable no fevers Objective Last 24 Hour Vital Signs Date Time Temp Pulse Resp B/P (MAP) Pulse Ox O2 Delivery O2 Flow Rate FiO2 06/24/20 08:25 107 154/99 06/24/20 06:40 98.1 06/24/20 04:00 98.3 104 20 144/98 (113) 97 06/24/20 04:00 104 06/24/20 02:21 101 165/98 06/24/20 00:00 98.1 101 20 165/98 (120) 96 06/24/20 00:00 108 06/23/20 21:00 Nasal Cannula 2.0 06/23/20 20:00 97.6 102 18 159/100 (119) 96 06/23/20 20:00 100 06/23/20 16:48 97 157/107 06/23/20 16:00 96.9 97 22 157/107 (124) 96 06/23/20 14:46 98 165/101 06/23/20 13:38 97.0 06/23/20 12:09 97.0 83 18 123/70 (87) 96 06/23/20 12:00 108 Intake and Output 06/23/20 06/24/20 19:00 07:00 Intake Total 360 ml Output Total 450 ml Balance -90 ml Intake Oral 360 ml Output Urine Total 450 ml Objective General Appearance: WD/WN, alert Lines, tubes and drains: peripheral HEENT: normocephalic, atraumatic, anicteric, mucous membranes moist Neck: non-tender, supple Respiratory/Chest: few isolated BL rhonchi Cardiovascular/Chest: tachycardia - A flutter with low tachy Abdomen: normal bowel sounds, non tender, soft : voided small amount of dark urine with hematuria Extremities: normal range of motion, edema + 2 BLE R>L Skin Exam: other - chronic venous stasis Neurologic: no motor/sensory deficits, alert, responsive Musculoskeletal: normal muscle bulk Microbiology Date/Time Source Procedure Growth Status 06/21/20 10:50 Nasopharynx Coronavirus COVID-19 PCR ([facility]) - Final Complete Laboratory Tests 06/23/20 11:15: White Blood Count 6.8, Red Blood Count 3.24L, Hemoglobin 9.1L, Hematocrit 27.4L, Mean Corpuscular Volume 84, Mean Corpuscular Hemoglobin 28.2, Mean Corpuscular Hemoglobin Concent 33.4, Red Cell Distribution Width 18.0H, Platelet Count 147L, Mean Platelet Volume 8.2, Neutrophils (%) (Auto) 77.4H, Lymphocytes (%) (Auto) 12.4L, Monocytes (%) (Auto) 7.3, Eosinophils (%) (Auto) 1.2, Basophils (%) (Auto) 1.8, Sodium Level 141, Potassium Level 3.8, Chloride Level 104, Carbon Dioxide Level 29, Anion Gap 8, Blood Urea Nitrogen 26H, Creatinine 1.9H, Estimat Glomerular Filtration Rate 42.5, Glucose Level 159H, Calcium Level 8.8 06/24/20 09:26: White Blood Count 7.8, Red Blood Count 3.59L, Hemoglobin 9.8L, Hematocrit 30.1L, Mean Corpuscular Volume 84, Mean Corpuscular Hemoglobin 27.3, Mean Corpuscular Hemoglobin Concent 32.5, Red Cell Distribution Width 18.5H, Platelet Count 135L, Mean Platelet Volume 8.8, Neutrophils (%) (Auto) 81.6H, Lymphocytes (%) (Auto) 9.0L, Monocytes (%) (Auto) 7.2, Eosinophils (%) (Auto) 1.2, Basophils (%) (Auto) 1.0, Sodium Level 139, Potassium Level 3.9, Chloride Level 104, Carbon Dioxide Level 28, Anion Gap 7, Blood Urea Nitrogen 19H, Creatinine 1.6H, Estimat Glomerular Filtration Rate 51.9, Glucose Level 146H, Calcium Level 8.5 Current Medications Medications (Trade) Dose Ordered Sig/Deedee Route PRN Reason Start Time Stop Time Status Last Admin Dose Admin Acetaminophen (Tylenol) 650 mg Q4H PRN ORAL Temp >100.5 06/19/20 22:45 07/19/20 22:44 06/20/20 20:54 Acetaminophen (Tylenol) 650 mg Q4H PRN RECTAL Mild Pain (Pain Scale 1-3) 06/19/20 22:45 07/19/20 22:44 Acetaminophen/ Hydrocodone Bitart ([place] 10/325) 1 tab Q6H PRN ORAL PAIN 4-8 06/21/20 19:15 06/28/20 19:14 06/24/20 06:10 Amlodipine Besylate (Norvasc) 5 mg DAILY ORAL 06/23/20 16:30 07/23/20 16:29 06/24/20 08:25 Ceftriaxone Sodium 1 gm/ Dextrose 55 ml @ 110 mls/hr Q24H IVPB 06/20/20 14:00 06/27/20 13:59 06/23/20 14:00 Dextrose (Dextrose 50%) 25 ml Q30M PRN IV Hypoglycemia 06/19/20 22:45 09/17/20 22:44 Dextrose (Dextrose 50%) 50 ml Q30M PRN IV Hypoglycemia 06/19/20 22:45 09/17/20 22:44 Gabapentin (Neurontin) 800 mg DAILY ORAL 06/20/20 09:00 07/20/20 08:59 06/24/20 08:24 Metoprolol Tartrate (Lopressor) 50 mg Q12H ORAL 06/24/20 02:00 09/19/20 20:59 06/24/20 02:21 Ondansetron HCl (Zofran) 4 mg Q4H PRN IVP Nausea & Vomiting 06/23/20 13:30 07/23/20 13:29 Pantoprazole (Protonix) 40 mg DAILY ORAL 06/20/20 09:00 07/20/20 08:59 06/24/20 08:26 Rivaroxaban (Xarelto) 15 mg DAILY ORAL 06/21/20 09:00 09/19/20 08:59 06/24/20 08:26 Assessment/Plan Assessment/Plan ASSESSMENT COPD exacerbation Possible PNA SOB CHF Hypoxia TAYE on CKD ( with hx of ARF requiring initiation of HD in July 2019) Hematuria r/o UTI Atrial flutter RVR Left atrial appendage thrombus ( failed ablation) Chronic venous stasis HTN DM Anemia Lymphadenopathy PLAN OF CARE tele O2 titrate to keep sat above 92%, stable on 2 L o2 hold bronchodilator treatment with Xopenex for now, given tachy start Atrovent HHN tid and prn start IV Solumedrol with tapering 06/24 - IS , encourage use fevers resolved CXR 06/22 with dependent consolidation SCX if able COVID 19 by PCR NGT continue CTX till 06/24 - for [address] A/P revealed -Small right trace left pleural effusions with adjacent atelectasis versus consolidation of the bilateral lower lobes. - Small foci of groundglass opacification in the left apex. Findings may potentially be related to a multifocal pneumonia continue Ceftriaxone for now while waiting fro COVID 19 by PCR results if COVID NGT and CXR this am stable, will consider stop abx in am, after [address] C /A/P also revealed -> Nonspecific lymphadenopathy with prominent lymph nodes noted in the left axillary region and smaller lymph nodes noted in the mediastinum, retroperitoneum and pelvis. Lymphadenopathy potentially reactive however neoplastic lymphadenopathy not excluded. recommended CT C/A/P to be repeated as OP to r/o lymphoproliferative disorder BCX NGTD influenza screen NGT get UA and cx given hematuria creat stbale, Hgb at baseline -hematuria ? cause - consider urology eval continue abx for now dc Xarelto venous Duplex BLE NGT Xarelto was resumed by cardio for L atrial thrombus ( noted on LLUVIA prior, failed ablation) off diuresis given hypotension s/p bolus, BP better monitor volumes and cardiorenal parameters , ECHO with pEF off any anti HTN for now rate control with BB as needed per cardio EP unable to cardioverted due to LA thrombus ( shown on LLUVIA last month), cardio recommends to continue a/c for 3 months, rate control with BB ( dose increased for better rate control) repeat LLUVIA and cardioversion later monitor and correct e/lytes as needed - per nephro recs creat trending down GI prophylaxis BS with SSI , Hgb A1c-8.2 diabetic diet and diabetic teaching monitor HH with goal to keep Hgb > [address] 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
--- NOTE | 2020-06-24 11:33 | Nephrology Progress Note ---
Assessment/Plan Problem List: (1) Acute on chronic renal failure Assessment: better (2) CHF (congestive heart failure) (3) DM (diabetes mellitus) (4) COPD (chronic obstructive pulmonary disease) Plan [facility] consult Discussed with GRACIELA CULLEN IV lasix Discussed with Dr Fischer and Dr Carpio Subjective Subjective Hematuria today SOB Objective Objective Last 24 Hour Vital Signs Date Time Temp Pulse Resp B/P (MAP) Pulse Ox O2 Delivery O2 Flow Rate FiO2 06/24/20 09:00 Nasal Cannula 2.0 06/24/20 08:25 107 154/99 06/24/20 08:00 102 06/24/20 08:00 97.5 107 20 154/99 (117) 100 06/24/20 06:40 98.1 06/24/20 04:00 98.3 104 20 144/98 (113) 97 06/24/20 04:00 104 06/24/20 02:21 101 165/98 06/24/20 00:00 98.1 101 20 165/98 (120) 96 06/24/20 00:00 108 06/23/20 21:00 Nasal Cannula 2.0 06/23/20 20:00 97.6 102 18 159/100 (119) 96 06/23/20 20:00 100 06/23/20 16:48 97 157/107 06/23/20 16:00 96.9 97 22 157/107 (124) 96 06/23/20 14:46 98 165/101 06/23/20 13:38 97.0 06/23/20 12:09 97.0 83 18 123/70 (87) 96 06/23/20 12:00 108 Intake and Output 06/23/20 06/24/20 19:00 07:00 Intake Total 360 ml Output Total 450 ml Balance -90 ml Intake Oral 360 ml Output Urine Total 450 ml Laboratory Tests 06/24/20 09:26: White Blood Count 7.8, Red Blood Count 3.59L, Hemoglobin 9.8L, Hematocrit 30.1L, Mean Corpuscular Volume 84, Mean Corpuscular Hemoglobin 27.3, Mean Corpuscular Hemoglobin Concent 32.5, Red Cell Distribution Width 18.5H, Platelet Count 135L, Mean Platelet Volume 8.8, Neutrophils (%) (Auto) 81.6H, Lymphocytes (%) (Auto) 9.0L, Monocytes (%) (Auto) 7.2, Eosinophils (%) (Auto) 1.2, Basophils (%) (Auto) 1.0, Sodium Level 139, Potassium Level 3.9, Chloride Level 104, Carbon Dioxide Level 28, Anion Gap 7, Blood Urea Nitrogen 19H, Creatinine 1.6H, Estimat Glomerular Filtration Rate 51.9, Glucose Level 146H, Calcium Level 8.5 Height (Feet): 5 Height (Inches): 6.00 Weight (Pounds): 181 Cardiovascular: normal rate Respiratory/Chest: expiratory wheezing Extremities: trace edema Jarek Shoemaker MD Jun 24, 2020 11:33
[2020-06-24] MEDS ORDERED: Ipratropium 0.02% Inh Soln 2.5ml UD HHN PRN (11:45)
[2020-06-24 12:00] VITALS: BP 154/96
[2020-06-24] MEDS: Solu-MEDROL 125mg Inj IVP SCH (12:57)
[2020-06-24] MEDS: dilTIAZem HCl 60mg tab ORAL SCH ×2 (12:57→18:34)
[2020-06-24] MEDS: Ipratropium 0.02% Inh Soln 2.5ml UD HHN SCH ×3 (13:37→20:18)
[2020-06-24 14:05] LABS: APPEARANCE,URINE VERY CLOUDY; BILIRUBIN, URINE NEGATIVE (NEGATIVE); GLUCOSE, URINE (UA) 3+ (NEGATIVE); KETONES,URINE NEGATIVE (NEGATIVE); LEUKOCYTE ESTERASE ,URINE NEGATIVE (NEGATIVE); NITRITE,URINE NEGATIVE (NEGATIVE); PH,URINE 7 (4.5-8.0); PROTEIN,URINE 4+ (NEGATIVE); UROBILINOGEN,URINE NORMAL MG/DL (0.0-1.0)
[2020-06-24 14:07] LABS: COLOR,URINE RED
[2020-06-24] MEDS: cefTRIAXone 1 GM in D5W 55 ML IVPB SCH (14:49)
[2020-06-24 16:00] VITALS: BP 148/93
--- NOTE | 2020-06-24 18:55 | Internal Med Progress Note ---
Subjective Date of Service: Jun 24, 2020 Physician Name Eric Palacios Attending Physician Jarek Shoemaker MD Current Medications Medications (Trade) Dose Ordered Sig/Deedee Route PRN Reason Start Time Stop Time Status Last Admin Dose Admin Acetaminophen (Tylenol) 650 mg Q4H PRN ORAL Temp >100.5 06/19/20 22:45 07/19/20 22:44 06/20/20 20:54 Acetaminophen (Tylenol) 650 mg Q4H PRN RECTAL Mild Pain (Pain Scale 1-3) 06/19/20 22:45 07/19/20 22:44 Acetaminophen/ Hydrocodone Bitart ([place] 10/325) 1 tab Q6H PRN ORAL PAIN 4-8 06/21/20 19:15 06/28/20 19:14 06/24/20 06:10 Amlodipine Besylate (Norvasc) 5 mg DAILY ORAL 06/23/20 16:30 07/23/20 16:29 06/24/20 08:25 Ceftriaxone Sodium 1 gm/ Dextrose 55 ml @ 110 mls/hr Q24H IVPB 06/20/20 14:00 06/27/20 13:59 06/24/20 14:49 Dextrose (Dextrose 50%) 25 ml Q30M PRN IV Hypoglycemia 06/19/20 22:45 09/17/20 22:44 Dextrose (Dextrose 50%) 50 ml Q30M PRN IV Hypoglycemia 06/19/20 22:45 09/17/20 22:44 Diltiazem HCl (Cardizem Tab) 60 mg EVERY 6 HOURS ORAL 06/24/20 12:00 07/24/20 11:59 06/24/20 18:34 Finasteride (Proscar) 5 mg DAILY ORAL 06/24/20 14:15 09/22/20 14:14 06/24/20 14:48 Furosemide (Lasix) 40 mg EVERY 12 HOURS IV 06/24/20 11:45 07/24/20 11:44 06/24/20 12:57 Gabapentin (Neurontin) 800 mg DAILY ORAL 06/20/20 09:00 07/20/20 08:59 06/24/20 08:24 Ipratropium [place] (Atrovent) 500 mcg Q4H PRN HHN Shortness of Breath 06/24/20 11:45 06/29/20 11:44 Ipratropium [place] (Atrovent) 500 mcg Q6HRT HHN 06/24/20 13:00 06/29/20 12:59 06/24/20 13:37 Methylprednisolone Sodium Succinate (Solu-MEDROL) 60 mg DAILY IVP 06/24/20 12:30 07/03/20 09:01 06/24/20 12:57 Ondansetron HCl (Zofran) 4 mg Q4H PRN IVP Nausea & Vomiting 06/23/20 13:30 07/23/20 13:29 Pantoprazole (Protonix) 40 mg DAILY ORAL 06/20/20 09:00 07/20/20 08:59 06/24/20 08:26 Tamsulosin HCl (Flomax) 0.4 mg BEDTIME ORAL 06/24/20 21:00 07/24/20 20:59 Allergies: Coded Allergies: No Known Allergies (Unverified , 07/21/19) ROS Limited/Unobtainable: No Constitutional: Reports: no symptoms HEENT: Reports: no symptoms Cardiovascular: Reports: no symptoms Respiratory: Reports: no symptoms Gastrointestinal/Abdominal: Reports: no symptoms Neurologic/Psychiatric: Reports: no symptoms Subjective 70 YO M admitted with dyspnea and edema. Now atrial flutter and left atrial thr ombus. Cover for Int Adarsh-Dr Nava Objective Last Vital Signs Date Time Temp Pulse Resp B/P (MAP) Pulse Ox O2 Delivery O2 Flow Rate FiO2 06/24/20 18:34 88 148/93 06/24/20 16:00 96.6 20 97 06/24/20 13:47 Nasal Cannula 2.0 28 Laboratory Tests Test 06/24/20 09:26 06/24/20 12:10 06/24/20 12:28 06/24/20 17:10 White Blood Count 7.8 K/UL (4.8-10.8) Red Blood Count 3.59 M/UL (4.70-6.10) L Hemoglobin 9.8 G/DL (14.2-18.0) L Hematocrit 30.1 % (42.0-52.0) L Mean Corpuscular Volume 84 FL (80-99) Mean Corpuscular Hemoglobin 27.3 PG (27.0-31.0) Mean Corpuscular Hemoglobin Concent 32.5 G/DL (32.0-36.0) Red Cell Distribution Width 18.5 % (11.6-14.8) H Platelet Count 135 K/UL (150-450) L Mean Platelet Volume 8.8 FL (6.5-10.1) Neutrophils (%) (Auto) 81.6 % (45.0-75.0) H Lymphocytes (%) (Auto) 9.0 % (20.0-45.0) L Monocytes (%) (Auto) 7.2 % (1.0-10.0) Eosinophils (%) (Auto) 1.2 % (0.0-3.0) Basophils (%) (Auto) 1.0 % (0.0-2.0) Sodium Level 139 MMOL/L (136-145) Potassium Level 3.9 MMOL/L (3.5-5.1) Chloride Level 104 MMOL/L (98-107) Carbon Dioxide Level 28 MMOL/L (21-32) Anion Gap 7 mmol/L (5-15) Blood Urea Nitrogen 19 mg/dL (7-18) H Creatinine 1.6 MG/DL (0.55-1.30) H Estimat Glomerular Filtration Rate 51.9 mL/min (>60) Glucose Level 146 MG/DL (74-106) H Calcium Level 8.5 MG/DL (8.5-10.1) Urine Color Red Urine Appearance Very cloudy Urine pH 7 (4.5-8.0) Urine Specific [place] 1.010 (1.005-1.035) Urine Protein 4+ (NEGATIVE) H Urine Glucose (UA) 3+ (NEGATIVE) H Urine Ketones Negative (NEGATIVE) Urine Blood 4+ (NEGATIVE) H Urine Nitrite Negative (NEGATIVE) Urine Bilirubin Negative (NEGATIVE) Urine Urobilinogen Normal MG/DL (0.0-1.0) Urine Leukocyte Esterase Negative (NEGATIVE) Urine RBC Tntc /HPF (0 - 0) H Urine WBC 0-2 /HPF (0 - 0) Urine Squamous Epithelial Cells Few /LPF (NONE/OCC) Urine Bacteria Few /HPF (NONE) POC Whole Blood Glucose 150 MG/DL (74-106) H 172 MG/DL (74-106) H Intake and Output 06/23/20 06/24/20 19:00 07:00 Intake Total 360 ml Output Total 450 ml Balance -90 ml Intake Oral 360 ml Output Urine Total 450 ml Objective Objective GENERAL: Awake, awake, responsive, no acute distress. HEAD AND NECK: Pupils are equal and reactive to light. Extraocular movements are intact. Neck was supple. No JVD. LUNGS: Good bilateral air entry. No wheezing or rales. Decreased air in bases HEART: S1, S2. irregular, no murmur or gallop. ABDOMEN: Soft, nondistended, and nontender. Mildly obese. EXTREMITIES: +2 edema in bilateral lower extremity, right greater than left NEUROLOGIC: WASTE HAND 2 through 12 grossly intact, motor is 5/5 in all extremities. RECTAL: Refused and deferred. GENITOURINARY: Refused and deferred. PSYCHIATRIC: Mood and affect is intact. Assessment/Plan Assessment/Plan Assessment/Plan Assessment/Plan Assessment/Plan ASSESSMENT: 1. Shortness of breath and leg edema, most likely secondary to acute on chronic congestive heart failure. 2. Acute kidney injury on chronic renal insufficiency. 3. History of atrial flutter with rapid ventricular rate. 4. Lung infiltrate, possible pneumonia. 5. History of left atrial appendage thrombus in May 2019. 6. Anemia. 7. Hypertension. 8. Morbid obesity. 9. Diabetes type 2, poorly controlled. 10. Diastolic dysfunction. 11. Left Atrial thrombus PLAN: 1. Admit the patient to monitored unit. 2. We will follow up with an echocardiogram. 3. Follow up with Dr. Jarek Shoemaker = Nephrology 4. Dr. Jose Juan Fischer = Cardiology, . 5. Abx: Rocephin IV. 6. Code status is Full Code. 7. DVT prophylaxis=already on xarelto for Left atrial thrombus 8. Dr. Jamie Carpio = Pulmonary and Critical Care Eric Palacios MD Jun 24, 2020 18:55
--- NOTE | 2020-06-24 19:30 | Cardiology Progress Note ---
Assessment/Plan Assessment/Plan hypotension resolved hyperdynamic lv systolic function recent PAUL thrombus (recent cardioversion aborted) persistent aflutter with variable block poorly controlled chronically cri htn pulm infiltrate on cxr and ct lymphadenopathy splenomegaly low back pain (for 2 weeks) hemturia d/w dr kumar to day had wheezing we decided to switch to cardizem po 60 mg qis in light of htn and tachy tele per reviewed atrial flutter will see if hr controlled anticoag on hold due to hematuria Subjective Cardiovascular: Denies: chest pain, lightheadedness Respiratory: Denies: shortness of breath Gastrointestinal/Abdominal: Reports: abdomen distended Genitourinary: Denies: burning Objective Last 24 Hour Vital Signs Date Time Temp Pulse Resp B/P (MAP) Pulse Ox O2 Delivery O2 Flow Rate FiO2 06/24/20 18:34 88 148/93 06/24/20 16:00 88 06/24/20 16:00 96.6 94 20 148/93 (111) 97 06/24/20 13:47 94 18 97 Nasal Cannula 2.0 28 06/24/20 13:47 91 18 100 Nasal Cannula 2.0 28 94 18 97 06/24/20 12:57 107 154/99 06/24/20 12:00 96.3 116 20 154/96 (115) 100 06/24/20 12:00 113 06/24/20 09:00 Nasal Cannula 2.0 06/24/20 08:25 107 154/99 06/24/20 08:00 102 06/24/20 08:00 97.5 107 20 154/99 (117) 100 06/24/20 06:40 98.1 06/24/20 04:00 98.3 104 20 144/98 (113) 97 06/24/20 04:00 104 06/24/20 02:21 101 165/98 06/24/20 00:00 98.1 101 20 165/98 (120) 96 06/24/20 00:00 108 06/23/20 21:00 Nasal Cannula 2.0 06/23/20 20:00 97.6 102 18 159/100 (119) 96 06/23/20 20:00 100 General Appearance: no apparent distress Neck: supple Cardiovascular: irregularly irregular Respiratory/Chest: lungs clear Abdomen: normal bowel sounds, non tender, soft Extremities: no swelling Intake and Output 06/23/20 06/24/20 19:00 07:00 Intake Total 360 ml Output Total 450 ml Balance -90 ml Intake Oral 360 ml Output Urine Total 450 ml Laboratory Tests Test 06/24/20 09:26 06/24/20 12:10 06/24/20 12:28 06/24/20 17:10 White Blood Count 7.8 K/UL (4.8-10.8) Red Blood Count 3.59 M/UL (4.70-6.10) L Hemoglobin 9.8 G/DL (14.2-18.0) L Hematocrit 30.1 % (42.0-52.0) L Mean Corpuscular Volume 84 FL (80-99) Mean Corpuscular Hemoglobin 27.3 PG (27.0-31.0) Mean Corpuscular Hemoglobin Concent 32.5 G/DL (32.0-36.0) Red Cell Distribution Width 18.5 % (11.6-14.8) H Platelet Count 135 K/UL (150-450) L Mean Platelet Volume 8.8 FL (6.5-10.1) Neutrophils (%) (Auto) 81.6 % (45.0-75.0) H Lymphocytes (%) (Auto) 9.0 % (20.0-45.0) L Monocytes (%) (Auto) 7.2 % (1.0-10.0) Eosinophils (%) (Auto) 1.2 % (0.0-3.0) Basophils (%) (Auto) 1.0 % (0.0-2.0) Sodium Level 139 MMOL/L (136-145) Potassium Level 3.9 MMOL/L (3.5-5.1) Chloride Level 104 MMOL/L (98-107) Carbon Dioxide Level 28 MMOL/L (21-32) Anion Gap 7 mmol/L (5-15) Blood Urea Nitrogen 19 mg/dL (7-18) H Creatinine 1.6 MG/DL (0.55-1.30) H Estimat Glomerular Filtration Rate 51.9 mL/min (>60) Glucose Level 146 MG/DL (74-106) H Calcium Level 8.5 MG/DL (8.5-10.1) Urine Color Red Urine Appearance Very cloudy Urine pH 7 (4.5-8.0) Urine Specific [place] 1.010 (1.005-1.035) Urine Protein 4+ (NEGATIVE) H Urine Glucose (UA) 3+ (NEGATIVE) H Urine Ketones Negative (NEGATIVE) Urine Blood 4+ (NEGATIVE) H Urine Nitrite Negative (NEGATIVE) Urine Bilirubin Negative (NEGATIVE) Urine Urobilinogen Normal MG/DL (0.0-1.0) Urine Leukocyte Esterase Negative (NEGATIVE) Urine RBC Tntc /HPF (0 - 0) H Urine WBC 0-2 /HPF (0 - 0) Urine Squamous Epithelial Cells Few /LPF (NONE/OCC) Urine Bacteria Few /HPF (NONE) POC Whole Blood Glucose 150 MG/DL (74-106) H 172 MG/DL (74-106) H Objective pt now in isoaltion as PUI status so i did no persoanlly see pat i did talk iwth him veer thephoen per pulm Respiratory/Chest: few isolated BL rhonchi Cardiovascular/Chest: tachycardia - A flutter with low tachy Abdomen: normal bowel sounds, non tender, soft Extremities: normal range of motion, edema + 2 BLE R>L Jose Juan Fischer MD Jun 24, 2020 19:30
[2020-06-24 20:00] VITALS: BP 148/88
[2020-06-24] MEDS: Tamsulosin 0.4mg cap ORAL SCH (20:16)
--- NOTE | 2020-06-24 21:30 | Consultation ---
DATE OF CONSULTATION: 06/24/2020 CONSULTING PHYSICIAN: Matt Goff M.D. REFERRING PHYSICIAN: 1. Maco Nava M.D. 2. Randy Zamora M.D. 3. Jarek Shoemaker M.D. REASON FOR CONSULTATION: Evaluation of hematuria. HISTORY OF PRESENT ILLNESS: This is a 70-year-old gentleman. He was originally admitted to the hospital because of shortness of breath with leg edema. He was noted to be in atrial flutter and rapid ventricular rate. He was also noted to be in acute kidney injury. Apparently, Berger catheter was placed at the time of admission. Some hematuria was noted. The Berger was removed a day or 2 ago by what the nurses are telling me. I did order a bladder scan earlier today and he had residual over 350 and the primary service ordered re-insertion of the Berger. Urology evaluation is requested. PAST MEDICAL HISTORY: Significant for above, also diabetes, hypertension, chronic kidney disease, morbid obesity. PAST SURGICAL HISTORY: Unknown. MEDICATIONS: Current medications here in the hospital, the patient is on Atrovent, Solu-Medrol, Cardizem, Lasix, Norvasc, Lopressor, Rocephin, Protonix, Neurontin. He was on Xarelto, which has been held. ALLERGIES: No known drug allergies. SOCIAL HISTORY: The patient is a nonsmoker. REVIEW OF SYSTEMS: As above. FAMILY HISTORY: Noncontributory. PHYSICAL EXAMINATION: GENERAL: An obese male. VITAL SIGNS: Temperature 96.6, blood pressure is 140/93, pulse is 88, respirations 20. HEENT: Normocephalic, normocephalic. NECK: Supple. ABDOMEN: Soft. : Berger is in place, 16-[place]. Urine is grossly bloody. LABORATORY DATA: BUN is 19, creatinine 1.6. He had a creatinine of 3.4 on admission. His white blood cell count of 7.8, hemoglobin 9.8, and platelets are 135. There is no INR. There is D-dimer of 4.7. UA on admit showed 2+ protein, 0 to 2 rbc's. Repeat UA showed 4+ protein, too numerous to count rbc's. There is no urine culture. Blood culture is negative at 4 days. DIAGNOSTIC IMAGING STUDIES: The patient had a CT scan of the chest, abdomen, pelvis, and this was a noncontrast study, did not show any upper tract urinary abnormalities. There are no stones or hydronephrosis. Some mild perinephric stranding. Prostate was borderline enlarged. There was a bladder wall thickening. IMPRESSION: 1. Gross hematuria. 2. Urinary retention. 3. BPH. 4. Possible neurogenic bladder. 5. Proteinuria. 6. Renal insufficiency, acute on chronic. 7. Possible cystitis. 8. Rule out prostatitis. PLAN AND DISCUSSION: Again as noted above, the patient does have gross hematuria, which appears to be related to Berger trauma. He had a high residual and the Berger was reinserted. I did inspect the catheter and I was unsure if it was in the right place. It was deflated. I did dilate and reinsert and I was able to hand irrigate the catheter. There was no clot, but the catheter did irrigate well and I believe it to be in good position. I did add Flomax 0.4 mg and finasteride 5 mg daily. His anticoagulation has been held. The patient is on Rocephin and he is to continue with that. His catheter will be irrigated q.3-4 h. and as needed and he can have a cystoscopy on an elective basis at a later time. Thank you for this consultation. Matt Goff M.D. DR: AMERICA JOB#: [id number] CC:
[2020-06-25] VITALS: BP 134/76
[2020-06-25] MEDS: dilTIAZem HCl 60mg tab ORAL SCH ×4 (00:14→18:26)
[2020-06-25 04:00] VITALS: BP 139/94
[2020-06-25] MEDS: Ipratropium 0.02% Inh Soln 2.5ml UD HHN SCH ×3 (07:48→19:33)
[2020-06-25 08:00] VITALS: BP 134/68
--- NOTE | 2020-06-25 09:03 | Urology Progress Note ---
Assessment/Plan Status: stable, unchanged Assessment/Plan: 1. Gross hematuria. 2. Urinary retention. 3. BPH. 4. Possible neurogenic bladder. 5. Proteinuria. 6. Renal insufficiency, acute on chronic. 7. Possible cystitis. 8. Rule out prostatitis. monitor clinically mendez hand irrigated and do PRN bleeding most likely related to mendez trauma, not active clearing off AC cont flomax, proscar and abx voiding trial later cysto electively Subjective Allergies: Coded Allergies: No Known Allergies (Unverified , 07/21/19) Subjective all noted, feels fair nurses hand irrigated mendez Objective Last 24 Hour Vital Signs Date Time Temp Pulse Resp B/P (MAP) Pulse Ox O2 Delivery O2 Flow Rate FiO2 06/25/20 07:48 100 18 100 Nasal Cannula 2.0 28 99 18 93 06/25/20 05:41 91 148/72 06/25/20 04:00 96.9 95 20 139/94 (109) 99 06/25/20 04:00 88 06/25/20 00:14 93 134/76 06/25/20 00:00 97.5 94 18 134/76 (95) 98 06/25/20 00:00 90 06/24/20 21:00 Nasal Cannula 2.0 06/24/20 20:22 92 18 100 Nasal Cannula 2.0 28 94 18 96 06/24/20 20:00 97.1 93 20 148/88 (108) 98 06/24/20 20:00 94 06/24/20 18:34 88 148/93 06/24/20 16:00 88 06/24/20 16:00 96.6 94 20 148/93 (111) 97 06/24/20 13:47 94 18 97 Nasal Cannula 2.0 28 06/24/20 13:47 91 18 100 Nasal Cannula 2.0 28 94 18 97 06/24/20 12:57 107 154/99 06/24/20 12:00 96.3 116 20 154/96 (115) 100 06/24/20 12:00 113 Intake and Output 06/24/20 06/25/20 19:00 07:00 Intake Total 420 ml Output Total 1300 ml Balance -880 ml Intake Oral 420 ml Output Urine Total 1300 ml # Voids 2 Microbiology Date/Time Source Procedure Growth Status 06/21/20 10:50 Nasopharynx Coronavirus COVID-19 PCR ([facility]) - Final Complete 06/19/20 14:55 Blood Blood Culture - Final NO GROWTH AFTER 5 DAYS Complete Current Medications Medications (Trade) Dose Ordered Sig/Deedee Route PRN Reason Start Time Stop Time Status Last Admin Dose Admin Acetaminophen (Tylenol) 650 mg Q4H PRN ORAL Temp >100.5 06/19/20 22:45 07/19/20 22:44 06/20/20 20:54 Acetaminophen (Tylenol) 650 mg Q4H PRN RECTAL Mild Pain (Pain Scale 1-3) 06/19/20 22:45 07/19/20 22:44 Acetaminophen/ Hydrocodone Bitart ([place] 10/325) 1 tab Q6H PRN ORAL PAIN 4-8 06/21/20 19:15 06/28/20 19:14 06/24/20 06:10 Amlodipine Besylate (Norvasc) 5 mg DAILY ORAL 06/23/20 16:30 07/23/20 16:29 06/24/20 08:25 Ceftriaxone Sodium 1 gm/ Dextrose 55 ml @ 110 mls/hr Q24H IVPB 06/20/20 14:00 06/27/20 13:59 06/24/20 14:49 Dextrose (Dextrose 50%) 25 ml Q30M PRN IV Hypoglycemia 06/19/20 22:45 09/17/20 22:44 Dextrose (Dextrose 50%) 50 ml Q30M PRN IV Hypoglycemia 06/19/20 22:45 09/17/20 22:44 Diltiazem HCl (Cardizem Tab) 60 mg EVERY 6 HOURS ORAL 06/24/20 12:00 07/24/20 11:59 06/25/20 05:41 Finasteride (Proscar) 5 mg DAILY ORAL 06/24/20 14:15 09/22/20 14:14 06/24/20 14:48 Furosemide (Lasix) 40 mg EVERY 12 HOURS IV 06/24/20 11:45 07/24/20 11:44 06/24/20 20:16 Gabapentin (Neurontin) 800 mg DAILY ORAL 06/20/20 09:00 07/20/20 08:59 06/24/20 08:24 Ipratropium [place] (Atrovent) 500 mcg Q4H PRN HHN Shortness of Breath 06/24/20 11:45 06/29/20 11:44 Ipratropium [place] (Atrovent) 500 mcg Q6HRT HHN 06/24/20 13:00 06/29/20 12:59 06/25/20 07:48 Methylprednisolone Sodium Succinate (Solu-MEDROL) 60 mg DAILY IVP 06/24/20 12:30 07/03/20 09:01 06/24/20 12:57 Ondansetron HCl (Zofran) 4 mg Q4H PRN IVP Nausea & Vomiting 06/23/20 13:30 07/23/20 13:29 Pantoprazole (Protonix) 40 mg DAILY ORAL 06/20/20 09:00 07/20/20 08:59 06/24/20 08:26 Tamsulosin HCl (Flomax) 0.4 mg BEDTIME ORAL 06/24/20 21:00 07/24/20 20:59 06/24/20 20:16 Laboratory Tests 06/24/20 09:26: White Blood Count 7.8, Red Blood Count 3.59L, Hemoglobin 9.8L, Hematocrit 30.1L, Mean Corpuscular Volume 84, Mean Corpuscular Hemoglobin 27.3, Mean Corpuscular Hemoglobin Concent 32.5, Red Cell Distribution Width 18.5H, Platelet Count 135L, Mean Platelet Volume 8.8, Neutrophils (%) (Auto) 81.6H, Lymphocytes (%) (Auto) 9.0L, Monocytes (%) (Auto) 7.2, Eosinophils (%) (Auto) 1.2, Basophils (%) (Auto) 1.0, Sodium Level 139, Potassium Level 3.9, Chloride Level 104, Carbon Dioxide Level 28, Anion Gap 7, Blood Urea Nitrogen 19H, Creatinine 1.6H, Estimat Glomerular Filtration Rate 51.9, Glucose Level 146H, Calcium Level 8.5 06/24/20 12:10: Urine Color Red, Urine Appearance Very cloudy, Urine pH 7, Urine Specific [place] 1.010, Urine Protein 4+H, Urine Glucose (UA) 3+H, Urine Ketones Negative, Urine Blood 4+H, Urine Nitrite Negative, Urine Bilirubin Negative, Urine Urobilinogen Normal, Urine Leukocyte Esterase Negative, Urine RBC TntcH, Urine WBC 0-2, Urine Squamous Epithelial Cells Few, Urine Bacteria Few 06/24/20 12:28: POC Whole Blood Glucose 150H 06/24/20 17:10: POC Whole Blood Glucose 172H Height (Feet): 5 Height (Inches): 6.00 Weight (Pounds): 181 Objective exam stable mendez indwelling, urine dark blood-tinged Matt Goff MD Jun 25, 2020 09:03
[2020-06-25] MEDS: HYDROcodone/Acetamin 10/325 tab ORAL PRN (09:23)
[2020-06-25] MEDS: Solu-MEDROL 125mg Inj IVP SCH (09:24)
--- NOTE | 2020-06-25 09:44 | Pulmonology Progress Note ---
Subjective ROS Limited/Unobtainable: No Allergies: Coded Allergies: No Known Allergies (Unverified , 07/21/19) Subjective no fevers COVID 19 by PCR NGT off isolation no wheezing, occasional dry cough started 06/24 on steroids no fevers. labs pending for this am seen by urologist 06/24 , Berger changed, irrigated, no clots seen no further hematuria, Objective Last 24 Hour Vital Signs Date Time Temp Pulse Resp B/P (MAP) Pulse Ox O2 Delivery O2 Flow Rate FiO2 06/25/20 09:23 110 134/68 06/25/20 07:48 100 18 100 Nasal Cannula 2.0 28 99 18 93 06/25/20 05:41 91 148/72 06/25/20 04:00 96.9 95 20 139/94 (109) 99 06/25/20 04:00 88 06/25/20 00:14 93 134/76 06/25/20 00:00 97.5 94 18 134/76 (95) 98 06/25/20 00:00 90 06/24/20 21:00 Nasal Cannula 2.0 06/24/20 20:22 92 18 100 Nasal Cannula 2.0 28 94 18 96 06/24/20 20:00 97.1 93 20 148/88 (108) 98 06/24/20 20:00 94 06/24/20 18:34 88 148/93 06/24/20 16:00 88 06/24/20 16:00 96.6 94 20 148/93 (111) 97 06/24/20 13:47 94 18 97 Nasal Cannula 2.0 28 06/24/20 13:47 91 18 100 Nasal Cannula 2.0 28 94 18 97 06/24/20 12:57 107 154/99 06/24/20 12:00 96.3 116 20 154/96 (115) 100 06/24/20 12:00 113 Intake and Output 06/24/20 06/25/20 19:00 07:00 Intake Total 420 ml Output Total 1300 ml Balance -880 ml Intake Oral 420 ml Output Urine Total 1300 ml # Voids 2 Objective General Appearance: WD/WN, alert Lines, tubes and drains: peripheral HEENT: normocephalic, atraumatic, anicteric, mucous membranes moist Neck: non-tender, supple Respiratory/Chest: decreased BS, no wheezing Cardiovascular/Chest: A flutter with low tachy Abdomen: normal bowel sounds, non tender, soft : Berger with dark eber but clear urine Extremities: normal range of motion, edema + 1 BLE R>L Skin Exam: chronic venous stasis Neurologic: no motor/sensory deficits, alert, responsive Musculoskeletal: normal muscle bulk Laboratory Tests 06/24/20 12:10: Urine Color Red, Urine Appearance Very cloudy, Urine pH 7, Urine Specific [place] 1.010, Urine Protein 4+H, Urine Glucose (UA) 3+H, Urine Ketones Negative, Urine Blood 4+H, Urine Nitrite Negative, Urine Bilirubin Negative, Urine Urobilinogen Normal, Urine Leukocyte Esterase Negative, Urine RBC TntcH, Urine WBC 0-2, Urine Squamous Epithelial Cells Few, Urine Bacteria Few 06/24/20 12:28: POC Whole Blood Glucose 150H 06/24/20 17:10: POC Whole Blood Glucose 172H Current Medications Medications (Trade) Dose Ordered Sig/Deedee Route PRN Reason Start Time Stop Time Status Last Admin Dose Admin Acetaminophen (Tylenol) 650 mg Q4H PRN ORAL Temp >100.5 06/19/20 22:45 07/19/20 22:44 06/20/20 20:54 Acetaminophen (Tylenol) 650 mg Q4H PRN RECTAL Mild Pain (Pain Scale 1-3) 06/19/20 22:45 07/19/20 22:44 Acetaminophen/ Hydrocodone Bitart ([place] 10/325) 1 tab Q6H PRN ORAL PAIN 4-8 06/21/20 19:15 06/28/20 19:14 06/25/20 09:23 Amlodipine Besylate (Norvasc) 5 mg DAILY ORAL 06/23/20 16:30 07/23/20 16:29 06/25/20 09:23 Ceftriaxone Sodium 1 gm/ Dextrose 55 ml @ 110 mls/hr Q24H IVPB 06/20/20 14:00 06/27/20 13:59 06/24/20 14:49 Dextrose (Dextrose 50%) 25 ml Q30M PRN IV Hypoglycemia 06/19/20 22:45 09/17/20 22:44 Dextrose (Dextrose 50%) 50 ml Q30M PRN IV Hypoglycemia 06/19/20 22:45 09/17/20 22:44 Diltiazem HCl (Cardizem Tab) 60 mg EVERY 6 HOURS ORAL 06/24/20 12:00 07/24/20 11:59 06/25/20 05:41 Finasteride (Proscar) 5 mg DAILY ORAL 06/24/20 14:15 09/22/20 14:14 06/25/20 09:24 Furosemide (Lasix) 40 mg EVERY 12 HOURS IV 06/24/20 11:45 07/24/20 11:44 06/25/20 09:24 Gabapentin (Neurontin) 800 mg DAILY ORAL 06/20/20 09:00 07/20/20 08:59 06/25/20 09:24 Ipratropium [place] (Atrovent) 500 mcg Q4H PRN HHN Shortness of Breath 06/24/20 11:45 06/29/20 11:44 Ipratropium [place] (Atrovent) 500 mcg Q6HRT HHN 06/24/20 13:00 06/29/20 12:59 06/25/20 07:48 Methylprednisolone Sodium Succinate (Solu-MEDROL) 60 mg DAILY IVP 06/24/20 12:30 07/03/20 09:01 06/25/20 09:24 Ondansetron HCl (Zofran) 4 mg Q4H PRN IVP Nausea & Vomiting 06/23/20 13:30 07/23/20 13:29 Pantoprazole (Protonix) 40 mg DAILY ORAL 06/20/20 09:00 07/20/20 08:59 06/25/20 09:24 Tamsulosin HCl (Flomax) 0.4 mg BEDTIME ORAL 06/24/20 21:00 07/24/20 20:59 06/24/20 20:16 Assessment/Plan Assessment/Plan ASSESSMENT COPD , possible exacerbation Possible PNA SOB CHF Hypoxia TAYE on CKD ( with hx of ARF requiring initiation of HD in July 2019) Hematuria r/o UTI Atrial flutter RVR Left atrial appendage thrombus ( failed ablation) Chronic venous stasis HTN DM Anemia Lymphadenopathy PLAN OF CARE tele O2 titrate to keep sat above 92%, stable on 2 L o2 hold bronchodilator treatment with Xopenex for now, given tachy started on Atrovent HHN tid and prn on IV Solumedrol from 06/24 - will dc IV steroids and start 5 day course of oral prednisone 40 mg daily IS , encourage use fevers resolved CXR 06/22 with dependent consolidation SCX if able COVID 19 by PCR NGT continue CTX CT A/P revealed -Small right trace left pleural effusions with adjacent atelectasis versus consolidation of the bilateral lower lobes. - Small foci of groundglass opacification in the left apex. Findings may potentially be related to a multifocal pneumonia continue Ceftriaxone for now while waiting fro COVID 19 by PCR results if COVID NGT and CXR this am stable, will consider stop abx in am, after [address] C /A/P also revealed -> Nonspecific lymphadenopathy with prominent lymph nodes noted in the left axillary region and smaller lymph nodes noted in the mediastinum, retroperitoneum and pelvis. Lymphadenopathy potentially reactive however neoplastic lymphadenopathy not excluded. recommended CT C/A/P to be repeated as OP to r/o lymphoproliferative disorder BCX NGTD influenza screen NGT get UA and cx given hematuria creat stbale, Hgb at baseline 06/24 hematuria off Xarelto seen by urologist, Berger cath changed, no clots seen, irrigated easily urine dark eber urologist presumed hematuria probably trauma related cysto recommended as OP venous Duplex BLE NGT Xarelto off for now ( was given for L atrial thrombus ( noted on LLUVIA prior, failed ablation) was off diuresis prior given hypotension now diuresis resumed, with close monitoring of volumes BP management with CCB ECHO with pEF ; rate control with Cardizem off BB given risk for bronchospasm per cardio EP unable to cardioverted due to LA thrombus ( shown on LLUVIA last month), cardio recommends to continue a/c for 3 months, rate control with BB ( dose increased for better rate control) repeat LLUVIA and cardioversion later monitor and correct e/lytes as needed - per nephro recs creat trending down GI prophylaxis BS with SSI , Hgb A1c-8.2 diabetic diet and diabetic teaching monitor HH with goal to keep Hgb > [address] 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
[2020-06-25 10:00] LABS: HEMOGLOBIN 8.6 G/DL (14.2-18.0); MEAN CORPUSCULAR VOLUME 81 FL (80-99); PLATELET COUNT 134 K/UL (150-450); RED CELL DISTRIBUTION WIDTH 17.3 % (11.6-14.8); WHITE BLOOD COUNT 9.4 K/UL (4.8-10.8)
[2020-06-25 10:16] LABS: CALCIUM 8.5 MG/DL (8.5-10.1); CREATININE 1.7 MG/DL (0.55-1.30); POTASSIUM 3.5 MMOL/L (3.5-5.1)
[2020-06-25 12:00] VITALS: BP 142/82
[2020-06-25] MEDS: cefTRIAXone 1 GM in D5W 55 ML IVPB SCH (14:41)
[2020-06-25 16:00] VITALS: BP 136/79
--- NOTE | 2020-06-25 17:30 | Internal Med Progress Note ---
Subjective Date of Service: Jun 25, 2020 Physician Name Eric Palacios Attending Physician Jarek Shoemaker MD Current Medications Medications (Trade) Dose Ordered Sig/Deedee Route PRN Reason Start Time Stop Time Status Last Admin Dose Admin Acetaminophen (Tylenol) 650 mg Q4H PRN ORAL Temp >100.5 06/19/20 22:45 07/19/20 22:44 06/20/20 20:54 Acetaminophen (Tylenol) 650 mg Q4H PRN RECTAL Mild Pain (Pain Scale 1-3) 06/19/20 22:45 07/19/20 22:44 Acetaminophen/ Hydrocodone Bitart ([place] 10/325) 1 tab Q6H PRN ORAL PAIN 4-8 06/21/20 19:15 06/28/20 19:14 06/25/20 09:23 Amlodipine Besylate (Norvasc) 5 mg DAILY ORAL 06/23/20 16:30 07/23/20 16:29 06/25/20 09:23 Ceftriaxone Sodium 1 gm/ Dextrose 55 ml @ 110 mls/hr Q24H IVPB 06/20/20 14:00 06/27/20 13:59 06/25/20 14:41 Dextrose (Dextrose 50%) 25 ml Q30M PRN IV Hypoglycemia 06/19/20 22:45 09/17/20 22:44 Dextrose (Dextrose 50%) 50 ml Q30M PRN IV Hypoglycemia 06/19/20 22:45 09/17/20 22:44 Diltiazem HCl (Cardizem Tab) 60 mg EVERY 6 HOURS ORAL 06/24/20 12:00 07/24/20 11:59 06/25/20 12:13 Finasteride (Proscar) 5 mg DAILY ORAL 06/24/20 14:15 09/22/20 14:14 06/25/20 09:24 Furosemide (Lasix) 40 mg EVERY 12 HOURS IV 06/24/20 11:45 07/24/20 11:44 06/25/20 09:24 Gabapentin (Neurontin) 800 mg DAILY ORAL 06/20/20 09:00 07/20/20 08:59 06/25/20 09:24 Ipratropium [place] (Atrovent) 500 mcg Q4H PRN HHN Shortness of Breath 06/24/20 11:45 06/29/20 11:44 Ipratropium [place] (Atrovent) 500 mcg Q6HRT HHN 06/24/20 13:00 06/29/20 12:59 06/25/20 12:58 Ondansetron HCl (Zofran) 4 mg Q4H PRN IVP Nausea & Vomiting 06/23/20 13:30 07/23/20 13:29 Pantoprazole (Protonix) 40 mg DAILY ORAL 06/20/20 09:00 07/20/20 08:59 06/25/20 09:24 Prednisone (predniSONE) 40 mg DAILY ORAL 06/26/20 09:00 06/30/20 09:00 Tamsulosin HCl (Flomax) 0.4 mg BEDTIME ORAL 06/24/20 21:00 07/24/20 20:59 06/24/20 20:16 Allergies: Coded Allergies: No Known Allergies (Unverified , 07/21/19) ROS Limited/Unobtainable: No Constitutional: Reports: no symptoms HEENT: Reports: no symptoms Cardiovascular: Reports: no symptoms Respiratory: Reports: no symptoms Gastrointestinal/Abdominal: Reports: no symptoms Genitourinary: Reports: no symptoms Neurologic/Psychiatric: Reports: no symptoms Subjective 70 YO M admitted with dyspnea and edema. Now atrial flutter and left atrial thrombus. Cover for Int Adarsh-Dr Nava Objective Last Vital Signs Date Time Temp Pulse Resp B/P (MAP) Pulse Ox O2 Delivery O2 Flow Rate FiO2 06/25/20 12:58 95 18 99 Nasal Cannula 2.0 28 94 18 96 06/25/20 12:13 142/85 06/25/20 12:00 98.1 Laboratory Tests Test 06/25/20 08:30 06/25/20 16:54 White Blood Count 9.4 K/UL (4.8-10.8) Red Blood Count 3.10 M/UL (4.70-6.10) L Hemoglobin 8.6 G/DL (14.2-18.0) L Hematocrit 25.0 % (42.0-52.0) L Mean Corpuscular Volume 81 FL (80-99) Mean Corpuscular Hemoglobin 27.8 PG (27.0-31.0) Mean Corpuscular Hemoglobin Concent 34.5 G/DL (32.0-36.0) Red Cell Distribution Width 17.3 % (11.6-14.8) H Platelet Count 134 K/UL (150-450) L Mean Platelet Volume 8.3 FL (6.5-10.1) Neutrophils (%) (Auto) % (45.0-75.0) Lymphocytes (%) (Auto) % (20.0-45.0) Monocytes (%) (Auto) % (1.0-10.0) Eosinophils (%) (Auto) % (0.0-3.0) Basophils (%) (Auto) % (0.0-2.0) Differential Total Cells Counted 100 Neutrophils % (Manual) 89 % (45-75) H Lymphocytes % (Manual) 7 % (20-45) L Monocytes % (Manual) 4 % (1-10) Eosinophils % (Manual) 0 % (0-3) Basophils % (Manual) 0 % (0-2) Band Neutrophils 0 % (0-8) Platelet Estimate Decreased L Platelet Morphology Normal Hypochromasia 1+ Anisocytosis 1+ Sodium Level 138 MMOL/L (136-145) Potassium Level 3.5 MMOL/L (3.5-5.1) Chloride Level 101 MMOL/L (98-107) Carbon Dioxide Level 31 MMOL/L (21-32) Anion Gap 7 mmol/L (5-15) Blood Urea Nitrogen 25 mg/dL (7-18) H Creatinine 1.7 MG/DL (0.55-1.30) H Estimat Glomerular Filtration Rate 48.4 mL/min (>60) Glucose Level 196 MG/DL (74-106) H Calcium Level 8.5 MG/DL (8.5-10.1) POC Whole Blood Glucose 256 MG/DL (74-106) H Intake and Output 06/24/20 06/25/20 19:00 07:00 Intake Total 420 ml Output Total 1300 ml Balance -880 ml Intake Oral 420 ml Output Urine Total 1300 ml # Voids 2 Objective Objective GENERAL: Awake, awake, responsive, no acute distress. HEAD AND NECK: Pupils are equal and reactive to light. Extraocular movements are intact. Neck was supple. No JVD. LUNGS: Good bilateral air entry. No wheezing or rales. Decreased air in bases HEART: S1, S2. irregular, no murmur or gallop. ABDOMEN: Soft, nondistended, and nontender. Mildly obese. EXTREMITIES: +2 edema in bilateral lower extremity, right greater than left NEUROLOGIC: CATEGORY ANALYST 2 through 12 grossly intact, motor is 5/5 in all extremities. RECTAL: Refused and deferred. GENITOURINARY: Refused and deferred. PSYCHIATRIC: Mood and affect is intact. Assessment/Plan Assessment/Plan Assessment/Plan Assessment/Plan Assessment/Plan ASSESSMENT: 1. Shortness of breath and leg edema, most likely secondary to acute on chronic congestive heart failure. 2. Acute kidney injury on chronic renal insufficiency. 3. History of atrial flutter with rapid ventricular rate. 4. Lung infiltrate, possible pneumonia. 5. History of left atrial appendage thrombus in May 2019. 6. Anemia. 7. Hypertension. 8. Morbid obesity. 9. Diabetes type 2, poorly controlled. 10. Diastolic dysfunction. 11. CHF 12. COPD PLAN: 1. Admit the patient to monitored unit. 2. We will follow up with an echocardiogram. 3. Follow up with Dr. Jarek Shoemaker = Nephrology 4. Dr. Jose Juan Fischer = Cardiology, . 5. Abx: Rocephin IV. 6. Code status is Full Code. 7. DVT prophylaxis=already on xarelto for Left atrial thrombus 8. Dr. Jamie Carpio = Pulmonary and Critical Care Eric Palacios MD Jun 25, 2020 17:30
--- NOTE | 2020-06-25 17:36 | Nephrology Progress Note ---
Assessment/Plan Problem List: (1) Acute on chronic renal failure Assessment: worse (2) CHF (congestive heart failure) (3) DM (diabetes mellitus) (4) COPD (chronic obstructive pulmonary disease) Plan will discuss with Dr Shell CULLEN absudarshan steroids IV lasix follow labs Subjective Subjective all noted Objective Objective Last 24 Hour Vital Signs Date Time Temp Pulse Resp B/P (MAP) Pulse Ox O2 Delivery O2 Flow Rate FiO2 06/25/20 12:58 95 18 99 Nasal Cannula 2.0 28 94 18 96 06/25/20 12:13 83 142/85 06/25/20 12:00 98.1 83 20 142/82 (102) 95 06/25/20 12:00 92 06/25/20 09:53 96.9 06/25/20 09:23 110 134/68 06/25/20 09:00 Nasal Cannula 2.0 06/25/20 08:00 96.8 95 20 134/68 (90) 97 06/25/20 08:00 89 06/25/20 07:48 100 18 100 Nasal Cannula 2.0 28 99 18 93 06/25/20 05:41 91 148/72 06/25/20 04:00 96.9 95 20 139/94 (109) 99 06/25/20 04:00 88 06/25/20 00:14 93 134/76 06/25/20 00:00 97.5 94 18 134/76 (95) 98 06/25/20 00:00 90 06/24/20 21:00 Nasal Cannula 2.0 06/24/20 20:22 92 18 100 Nasal Cannula 2.0 28 94 18 96 06/24/20 20:00 97.1 93 20 148/88 (108) 98 06/24/20 20:00 94 06/24/20 18:34 88 148/93 Intake and Output 06/24/20 06/25/20 19:00 07:00 Intake Total 420 ml Output Total 1300 ml Balance -880 ml Intake Oral 420 ml Output Urine Total 1300 ml # Voids 2 Laboratory Tests 06/25/20 08:30: White Blood Count 9.4, Red Blood Count 3.10L, Hemoglobin 8.6L, Hematocrit 25.0L, Mean Corpuscular Volume 81, Mean Corpuscular Hemoglobin 27.8, Mean Corpuscular Hemoglobin Concent 34.5, Red Cell Distribution Width 17.3H, Platelet Count 134L, Mean Platelet Volume 8.3, Neutrophils (%) (Auto) , Lymphocytes (%) (Auto) , Monocytes (%) (Auto) , Eosinophils (%) (Auto) , Basophils (%) (Auto) , Differential Total Cells Counted 100, Neutrophils % (Manual) 89H, Lymphocytes % (Manual) 7L, Monocytes % (Manual) 4, Eosinophils % (Manual) 0, Basophils % (Manual) 0, Band Neutrophils 0, Platelet Estimate DecreasedL, Platelet Morphology Normal, Hypochromasia 1+, Anisocytosis 1+, Sodium Level 138, Potassium Level 3.5, Chloride Level 101, Carbon Dioxide Level 31, Anion Gap 7, Blood Urea Nitrogen 25H, Creatinine 1.7H, Estimat Glomerular Filtration Rate 48.4, Glucose Level 196H, Calcium Level 8.5 06/25/20 16:54: POC Whole Blood Glucose 256H Height (Feet): 5 Height (Inches): 6.00 Weight (Pounds): 181 Jarek Shoemaker MD Jun 25, 2020 17:36
--- NOTE | 2020-06-25 18:22 | Cardiology Progress Note ---
Assessment/Plan Assessment/Plan hypotension resolved hyperdynamic lv systolic function recent PAUL thrombus (recent cardioversion aborted) persistent aflutter with variable block poorly controlled chronically cri htn pulm infiltrate on cxr and ct lymphadenopathy splenomegaly low back pain (for 2 weeks) hemturia we switch to cardizem po 60 mg qis in light of htn and tachy due to wheezingf on 06/24 tele per reviewed atrial flutter will see if hr controlled anticoag on hold due to hematuria hgb loer urology following resuem anticoagualtion soon as at risk of cva Objective Last 24 Hour Vital Signs Date Time Temp Pulse Resp B/P (MAP) Pulse Ox O2 Delivery O2 Flow Rate FiO2 06/25/20 16:00 95 06/25/20 16:00 98.4 92 18 136/79 (98) 100 06/25/20 12:58 95 18 99 Nasal Cannula 2.0 28 94 18 96 06/25/20 12:13 83 142/85 06/25/20 12:00 98.1 83 20 142/82 (102) 95 06/25/20 12:00 92 06/25/20 09:53 96.9 06/25/20 09:23 110 134/68 06/25/20 09:00 Nasal Cannula 2.0 06/25/20 08:00 96.8 95 20 134/68 (90) 97 06/25/20 08:00 89 06/25/20 07:48 100 18 100 Nasal Cannula 2.0 28 99 18 93 06/25/20 05:41 91 148/72 06/25/20 04:00 96.9 95 20 139/94 (109) 99 06/25/20 04:00 88 06/25/20 00:14 93 134/76 06/25/20 00:00 97.5 94 18 134/76 (95) 98 06/25/20 00:00 90 06/24/20 21:00 Nasal Cannula 2.0 06/24/20 20:22 92 18 100 Nasal Cannula 2.0 28 94 18 96 06/24/20 20:00 97.1 93 20 148/88 (108) 98 06/24/20 20:00 94 06/24/20 18:34 88 148/93 Intake and Output 06/24/20 06/25/20 19:00 07:00 Intake Total 420 ml Output Total 1300 ml Balance -880 ml Intake Oral 420 ml Output Urine Total 1300 ml # Voids 2 Laboratory Tests Test 06/25/20 08:30 06/25/20 16:54 White Blood Count 9.4 K/UL (4.8-10.8) Red Blood Count 3.10 M/UL (4.70-6.10) L Hemoglobin 8.6 G/DL (14.2-18.0) L Hematocrit 25.0 % (42.0-52.0) L Mean Corpuscular Volume 81 FL (80-99) Mean Corpuscular Hemoglobin 27.8 PG (27.0-31.0) Mean Corpuscular Hemoglobin Concent 34.5 G/DL (32.0-36.0) Red Cell Distribution Width 17.3 % (11.6-14.8) H Platelet Count 134 K/UL (150-450) L Mean Platelet Volume 8.3 FL (6.5-10.1) Neutrophils (%) (Auto) % (45.0-75.0) Lymphocytes (%) (Auto) % (20.0-45.0) Monocytes (%) (Auto) % (1.0-10.0) Eosinophils (%) (Auto) % (0.0-3.0) Basophils (%) (Auto) % (0.0-2.0) Differential Total Cells Counted 100 Neutrophils % (Manual) 89 % (45-75) H Lymphocytes % (Manual) 7 % (20-45) L Monocytes % (Manual) 4 % (1-10) Eosinophils % (Manual) 0 % (0-3) Basophils % (Manual) 0 % (0-2) Band Neutrophils 0 % (0-8) Platelet Estimate Decreased L Platelet Morphology Normal Hypochromasia 1+ Anisocytosis 1+ Sodium Level 138 MMOL/L (136-145) Potassium Level 3.5 MMOL/L (3.5-5.1) Chloride Level 101 MMOL/L (98-107) Carbon Dioxide Level 31 MMOL/L (21-32) Anion Gap 7 mmol/L (5-15) Blood Urea Nitrogen 25 mg/dL (7-18) H Creatinine 1.7 MG/DL (0.55-1.30) H Estimat Glomerular Filtration Rate 48.4 mL/min (>60) Glucose Level 196 MG/DL (74-106) H Calcium Level 8.5 MG/DL (8.5-10.1) POC Whole Blood Glucose 256 MG/DL (74-106) H Objective pt now in isoaltion as PUI status so i did no persoanlly see pat i did talk iwth him veer thephoen per pulm Respiratory/Chest: few isolated BL rhonchi Cardiovascular/Chest: tachycardia - A flutter with low tachy Abdomen: normal bowel sounds, non tender, soft Extremities: normal range of motion, edema + 2 BLE R>L Jose Juan Fischer MD Jun 25, 2020 18:22
--- NOTE | 2020-06-25 18:35 | Cardiology Progress Note ---
Assessment/Plan Assessment/Plan hypotension resolved hyperdynamic lv systolic function recent PAUL thrombus (recent cardioversion aborted) persistent aflutter with variable block poorly controlled chronically cri htn pulm infiltrate on cxr and ct lymphadenopathy splenomegaly low back pain (for 2 weeks) hemturia we switch to cardizem po 60 mg qis in light of htn and tachy due to wheezing of on 06/24 tele per reviewed atrial flutter hr controlled anticoag on hold due to hematuria and drop in hgb d/w dr joshi hgb lower urology following resuem anticoagulation soon as at risk of cva bp controlled at the present Subjective Cardiovascular: Denies: chest pain, lightheadedness, palpitations Respiratory: Denies: shortness of breath Gastrointestinal/Abdominal: Denies: abdomen distended, abdominal pain Genitourinary: Denies: burning Objective Last 24 Hour Vital Signs Date Time Temp Pulse Resp B/P (MAP) Pulse Ox O2 Delivery O2 Flow Rate FiO2 06/25/20 18:26 95 136/79 06/25/20 16:00 95 06/25/20 16:00 98.4 92 18 136/79 (98) 100 06/25/20 12:58 95 18 99 Nasal Cannula 2.0 28 94 18 96 06/25/20 12:13 83 142/85 06/25/20 12:00 98.1 83 20 142/82 (102) 95 06/25/20 12:00 92 06/25/20 09:53 96.9 06/25/20 09:23 110 134/68 06/25/20 09:00 Nasal Cannula 2.0 06/25/20 08:00 96.8 95 20 134/68 (90) 97 06/25/20 08:00 89 06/25/20 07:48 100 18 100 Nasal Cannula 2.0 28 99 18 93 06/25/20 05:41 91 148/72 06/25/20 04:00 96.9 95 20 139/94 (109) 99 06/25/20 04:00 88 06/25/20 00:14 93 134/76 06/25/20 00:00 97.5 94 18 134/76 (95) 98 06/25/20 00:00 90 06/24/20 21:00 Nasal Cannula 2.0 06/24/20 20:22 92 18 100 Nasal Cannula 2.0 28 94 18 96 12/14/20 20:00 97.1 93 20 148/88 (108) 98 06/24/20 20:00 94 06/24/20 18:34 88 148/93 General Appearance: no apparent distress, alert Neck: supple Cardiovascular: irregularly irregular Respiratory/Chest: lungs clear Abdomen: normal bowel sounds, non tender, soft Extremities: non-tender, no swelling Intake and Output 06/24/20 06/25/20 19:00 07:00 Intake Total 420 ml Output Total 1300 ml Balance -880 ml Intake Oral 420 ml Output Urine Total 1300 ml # Voids 2 Laboratory Tests Test 06/25/20 08:30 06/25/20 16:54 White Blood Count 9.4 K/UL (4.8-10.8) Red Blood Count 3.10 M/UL (4.70-6.10) L Hemoglobin 8.6 G/DL (14.2-18.0) L Hematocrit 25.0 % (42.0-52.0) L Mean Corpuscular Volume 81 FL (80-99) Mean Corpuscular Hemoglobin 27.8 PG (27.0-31.0) Mean Corpuscular Hemoglobin Concent 34.5 G/DL (32.0-36.0) Red Cell Distribution Width 17.3 % (11.6-14.8) H Platelet Count 134 K/UL (150-450) L Mean Platelet Volume 8.3 FL (6.5-10.1) Neutrophils (%) (Auto) % (45.0-75.0) Lymphocytes (%) (Auto) % (20.0-45.0) Monocytes (%) (Auto) % (1.0-10.0) Eosinophils (%) (Auto) % (0.0-3.0) Basophils (%) (Auto) % (0.0-2.0) Differential Total Cells Counted 100 Neutrophils % (Manual) 89 % (45-75) H Lymphocytes % (Manual) 7 % (20-45) L Monocytes % (Manual) 4 % (1-10) Eosinophils % (Manual) 0 % (0-3) Basophils % (Manual) 0 % (0-2) Band Neutrophils 0 % (0-8) Platelet Estimate Decreased L Platelet Morphology Normal Hypochromasia 1+ Anisocytosis 1+ Sodium Level 138 MMOL/L (136-145) Potassium Level 3.5 MMOL/L (3.5-5.1) Chloride Level 101 MMOL/L (98-107) Carbon Dioxide Level 31 MMOL/L (21-32) Anion Gap 7 mmol/L (5-15) Blood Urea Nitrogen 25 mg/dL (7-18) H Creatinine 1.7 MG/DL (0.55-1.30) H Estimat Glomerular Filtration Rate 48.4 mL/min (>60) Glucose Level 196 MG/DL (74-106) H Calcium Level 8.5 MG/DL (8.5-10.1) POC Whole Blood Glucose 256 MG/DL (74-106) H Objective pt now in isoaltion as PUI status so i did no persoanlly see pat i did talk iwth him veer thephoen per pulm Respiratory/Chest: few isolated BL rhonchi Cardiovascular/Chest: tachycardia - A flutter with low tachy Abdomen: normal bowel sounds, non tender, soft Extremities: normal range of motion, edema + 2 BLE R>L Jose Juan Fischer MD Jun 25, 2020 18:35
[2020-06-25 20:00] VITALS: BP 139/84
[2020-06-25] MEDS: Tamsulosin 0.4mg cap ORAL SCH (21:23)
[2020-06-26] VITALS: BP 135/93
[2020-06-26] MEDS: dilTIAZem HCl 60mg tab ORAL SCH ×4 (00:22→18:07)
[2020-06-26] MEDS: Ipratropium 0.02% Inh Soln 2.5ml UD HHN SCH ×3 (00:41→13:05)
[2020-06-26 03:53] VITALS: BP 132/79
[2020-06-26] MEDS ORDERED: guaiFENesin /DM 10ml syrup ORAL PRN (05:30)
[2020-06-26 08:00] VITALS: BP 137/72
--- NOTE | 2020-06-26 08:52 | Urology Progress Note ---
Assessment/Plan Status: stable, unchanged Assessment/Plan: 1. Gross hematuria, resolving. 2. Urinary retention. 3. BPH. 4. Possible neurogenic bladder. 5. Proteinuria. 6. Renal insufficiency, acute on chronic. 7. Possible cystitis. 8. Rule out prostatitis. monitor clinically mendez hand irrigated and do PRN bleeding most likely related to mendez trauma, not active clearing off AC cont flomax, proscar and abx voiding trial later cysto electively d/w 's Jarek Shoemaker and Aaliyah Subjective Allergies: Coded Allergies: No Known Allergies (Unverified , 07/21/19) Subjective all noted, feels fair nurses hand irrigated mendez Objective Last 24 Hour Vital Signs Date Time Temp Pulse Resp B/P (MAP) Pulse Ox O2 Delivery O2 Flow Rate FiO2 06/26/20 08:00 98.2 94 16 137/72 (93) 97 06/26/20 07:55 92 18 100 Nasal Cannula 2.0 28 90 18 97 06/26/20 06:16 93 132/79 06/26/20 04:00 93 06/26/20 03:53 98.7 93 18 132/79 (96) 98 06/26/20 00:42 91 18 100 Nasal Cannula 2.0 28 88 18 97 06/26/20 00:22 113 135/93 06/26/20 00:00 100 06/26/20 00:00 98.1 113 18 135/93 (107) 99 06/25/20 21:00 Nasal Cannula 2.0 06/25/20 20:00 98.5 92 18 139/84 (102) 100 06/25/20 20:00 100 06/25/20 19:33 94 18 100 Nasal Cannula 2.0 28 92 18 98 06/25/20 18:26 95 136/79 06/25/20 16:00 95 06/25/20 16:00 98.4 92 18 136/79 (98) 100 06/25/20 12:58 95 18 99 Nasal Cannula 2.0 28 94 18 96 06/25/20 12:13 83 142/85 06/25/20 12:00 98.1 83 20 142/82 (102) 95 06/25/20 12:00 92 06/25/20 09:53 96.9 06/25/20 09:23 110 134/68 06/25/20 09:00 Nasal Cannula 2.0 Intake and Output 06/25/20 06/26/20 18:59 06:59 Output Total 750 ml Balance -750 ml Output Urine Total 750 ml # Bowel Movements 1 Microbiology Date/Time Source Procedure Growth Status 06/21/20 10:50 Nasopharynx Coronavirus COVID-19 PCR ([facility]) - Final Complete 06/19/20 14:55 Blood Blood Culture - Final NO GROWTH AFTER 5 DAYS Complete Current Medications Medications (Trade) Dose Ordered Sig/Deedee Route PRN Reason Start Time Stop Time Status Last Admin Dose Admin Acetaminophen (Tylenol) 650 mg Q4H PRN ORAL Temp >100.5 06/19/20 22:45 07/19/20 22:44 06/20/20 20:54 Acetaminophen (Tylenol) 650 mg Q4H PRN RECTAL Mild Pain (Pain Scale 1-3) 06/19/20 22:45 07/19/20 22:44 Acetaminophen/ Hydrocodone Bitart ([place] 10/325) 1 tab Q6H PRN ORAL PAIN 4-8 06/21/20 19:15 06/28/20 19:14 06/25/20 09:23 Amlodipine Besylate (Norvasc) 5 mg DAILY ORAL 06/23/20 16:30 07/23/20 16:29 06/25/20 09:23 Ceftriaxone Sodium 1 gm/ Dextrose 55 ml @ 110 mls/hr Q24H IVPB 06/20/20 14:00 06/27/20 13:59 06/25/20 14:41 Dextrose (Dextrose 50%) 25 ml Q30M PRN IV Hypoglycemia 06/19/20 22:45 09/17/20 22:44 Dextrose (Dextrose 50%) 50 ml Q30M PRN IV Hypoglycemia 06/19/20 22:45 09/17/20 22:44 Diltiazem HCl (Cardizem Tab) 60 mg EVERY 6 HOURS ORAL 06/24/20 12:00 07/24/20 11:59 06/26/20 06:16 Finasteride (Proscar) 5 mg DAILY ORAL 06/24/20 14:15 09/22/20 14:14 06/25/20 09:24 Furosemide (Lasix) 40 mg EVERY 12 HOURS IV 06/24/20 11:45 07/24/20 11:44 06/25/20 21:22 Gabapentin (Neurontin) 800 mg DAILY ORAL 06/20/20 09:00 07/20/20 08:59 06/25/20 09:24 Guaifenesin/ Dextromethorphan (Robitussin DM Syrup) 10 ml Q4H PRN ORAL For Cough 06/26/20 05:30 09/24/20 05:29 06/26/20 06:16 Ipratropium [place] (Atrovent) 500 mcg Q4H PRN HHN Shortness of Breath 06/24/20 11:45 06/29/20 11:44 Ipratropium [place] (Atrovent) 500 mcg Q6HRT HHN 06/24/20 13:00 06/29/20 12:59 06/26/20 07:50 Ondansetron HCl (Zofran) 4 mg Q4H PRN IVP Nausea & Vomiting 06/23/20 13:30 07/23/20 13:29 Pantoprazole (Protonix) 40 mg DAILY ORAL 06/20/20 09:00 07/20/20 08:59 06/25/20 09:24 Prednisone (predniSONE) 40 mg DAILY ORAL 06/26/20 09:00 06/30/20 09:00 Tamsulosin HCl (Flomax) 0.4 mg BEDTIME ORAL 06/24/20 21:00 07/24/20 20:59 06/25/20 21:23 Laboratory Tests 06/25/20 16:54: POC Whole Blood Glucose 256H 06/26/20 07:25: White Blood Count [Pending], Red Blood Count [Pending], Hemoglobin [Pending], Hematocrit [Pending], Mean Corpuscular Volume [Pending], Mean Corpuscular Hemoglobin [Pending], Mean Corpuscular Hemoglobin Concent [Pending], Red Cell Distribution Width [Pending], Platelet Count [Pending], Mean Platelet Volume [Pending], Neutrophils (%) (Auto) [Pending], Lymphocytes (%) (Auto) [Pending], Monocytes (%) (Auto) [Pending], Eosinophils (%) (Auto) [Pending], Basophils (%) (Auto) [Pending], Sodium Level [Pending], Potassium Level [Pending], Chloride Level [Pending], Carbon Dioxide Level [Pending], Blood Urea Nitrogen [Pending], Creatinine [Pending], Estimat Glomerular Filtration Rate [Pending], Glucose Level [Pending], Calcium Level [Pending] Height (Feet): 5 Height (Inches): 6.00 Weight (Pounds): 181 Objective exam stable mendez indwelling, urine blood-tinged Matt Goff MD Jun 26, 2020 08:52
[2020-06-26 09:00] LABS: HEMATOCRIT 27.3 % (42.0-52.0); MEAN CORPUSCULAR VOLUME 85 FL (80-99); PLATELET COUNT 151 K/UL (150-450); RED BLOOD COUNT 3.23 M/UL (4.70-6.10); RED CELL DISTRIBUTION WIDTH 17.1 % (11.6-14.8); WHITE BLOOD COUNT 12.4 K/UL (4.8-10.8)
[2020-06-26] MEDS ORDERED: Solu-MEDROL 125mg Inj IVP SCH (09:00)
[2020-06-26 09:11] LABS: CALCIUM 8.6 MG/DL (8.5-10.1); CREATININE 1.7 MG/DL (0.55-1.30); POTASSIUM 3.7 MMOL/L (3.5-5.1)
--- NOTE | 2020-06-26 09:35 | Pulmonology Progress Note ---
Subjective ROS Limited/Unobtainable: No Allergies: Coded Allergies: No Known Allergies (Unverified , 07/21/19) Subjective no fevers COVID 19 by PCR NGT off isolation no wheezing, occasional dry cough started 06/24 on steroids no fevers. pusle ox stable on low flow O2 via NC mild leuk today, likely due to sternoids seen by urologist 06/24 , Berger changed, irrigated, no clots seen no further hematuria, denies CP, SOB, cough Objective Last 24 Hour Vital Signs Date Time Temp Pulse Resp B/P (MAP) Pulse Ox O2 Delivery O2 Flow Rate FiO2 06/26/20 08:55 94 137/72 06/26/20 08:00 98.2 94 16 137/72 (93) 97 06/26/20 07:55 92 18 100 Nasal Cannula 2.0 28 90 18 97 06/26/20 06:16 93 132/79 06/26/20 04:00 93 06/26/20 03:53 98.7 93 18 132/79 (96) 98 06/26/20 00:42 91 18 100 Nasal Cannula 2.0 28 88 18 97 06/26/20 00:22 113 135/93 06/26/20 00:00 100 06/26/20 00:00 98.1 113 18 135/93 (107) 99 06/25/20 21:00 Nasal Cannula 2.0 06/25/20 20:00 98.5 92 18 139/84 (102) 100 06/25/20 20:00 100 06/25/20 19:33 94 18 100 Nasal Cannula 2.0 28 92 18 98 06/25/20 18:26 95 136/79 06/25/20 16:00 95 06/25/20 16:00 98.4 92 18 136/79 (98) 100 06/25/20 12:58 95 18 99 Nasal Cannula 2.0 28 94 18 96 06/25/20 12:13 83 142/85 06/25/20 12:00 98.1 83 20 142/82 (102) 95 06/25/20 12:00 92 06/25/20 09:53 96.9 Intake and Output 06/25/20 06/26/20 19:00 07:00 Output Total 750 ml Balance -750 ml Output Urine Total 750 ml # Bowel Movements 1 Objective General Appearance: WD/WN, alert Lines, tubes and drains: peripheral HEENT: normocephalic, atraumatic, anicteric, mucous membranes moist Neck: non-tender, supple Respiratory/Chest: decreased BS, no wheezing Cardiovascular/Chest: A flutter with low tachy Abdomen: normal bowel sounds, non tender, soft : Berger with dark eber but clear urine Extremities: normal range of motion, edema + 1 BLE R>L Skin Exam: chronic venous stasis Neurologic: no motor/sensory deficits, alert, responsive Musculoskeletal: normal muscle bulk Laboratory Tests 06/25/20 16:54: POC Whole Blood Glucose 256H 06/26/20 07:25: White Blood Count 12.4H, Red Blood Count 3.23L, Hemoglobin 9.0L, Hematocrit 27.3L, Mean Corpuscular Volume 85, Mean Corpuscular Hemoglobin 27.9, Mean Corpuscular Hemoglobin Concent 33.0, Red Cell Distribution Width 17.1H, Platelet Count 151, Mean Platelet Volume 8.3, Neutrophils (%) (Auto) , Lymphocytes (%) (Auto) , Monocytes (%) (Auto) , Eosinophils (%) (Auto) , Basophils (%) (Auto) , Neutrophils % (Manual) [Pending], Lymphocytes % (Manual) [Pending], Platelet Estimate [Pending], Platelet Morphology [Pending], Sodium Level 138, Potassium Level 3.7, Chloride Level 101, Carbon Dioxide Level 32, Anion Gap 5, Blood Urea Nitrogen 32H, Creatinine 1.7H, Estimat Glomerular Filtration Rate 48.4, Glucose Level 196H, Calcium Level 8.6 Current Medications Medications (Trade) Dose Ordered Sig/Deedee Route PRN Reason Start Time Stop Time Status Last Admin Dose Admin Acetaminophen (Tylenol) 650 mg Q4H PRN ORAL Temp >100.5 06/19/20 22:45 07/19/20 22:44 06/20/20 20:54 Acetaminophen (Tylenol) 650 mg Q4H PRN RECTAL Mild Pain (Pain Scale 1-3) 06/19/20 22:45 07/19/20 22:44 Acetaminophen/ Hydrocodone Bitart ([place] 10/325) 1 tab Q6H PRN ORAL PAIN 4-8 06/21/20 19:15 06/28/20 19:14 06/25/20 09:23 Amlodipine Besylate (Norvasc) 5 mg DAILY ORAL 06/23/20 16:30 07/23/20 16:29 06/26/20 08:55 Ceftriaxone Sodium 1 gm/ Dextrose 55 ml @ 110 mls/hr Q24H IVPB 06/20/20 14:00 06/27/20 13:59 06/25/20 14:41 Dextrose (Dextrose 50%) 25 ml Q30M PRN IV Hypoglycemia 06/19/20 22:45 09/17/20 22:44 Dextrose (Dextrose 50%) 50 ml Q30M PRN IV Hypoglycemia 06/19/20 22:45 09/17/20 22:44 Diltiazem HCl (Cardizem Tab) 60 mg EVERY 6 HOURS ORAL 06/24/20 12:00 07/24/20 11:59 06/26/20 06:16 Finasteride (Proscar) 5 mg DAILY ORAL 06/24/20 14:15 09/22/20 14:14 06/26/20 08:55 Furosemide (Lasix) 40 mg EVERY 12 HOURS IV 06/24/20 11:45 07/24/20 11:44 06/26/20 08:54 Gabapentin (Neurontin) 800 mg DAILY ORAL 06/20/20 09:00 07/20/20 08:59 06/26/20 08:54 Guaifenesin/ Dextromethorphan (Robitussin DM Syrup) 10 ml Q4H PRN ORAL For Cough 06/26/20 05:30 09/24/20 05:29 06/26/20 06:16 Ipratropium [place] (Atrovent) 500 mcg Q4H PRN HHN Shortness of Breath 06/24/20 11:45 06/29/20 11:44 Ipratropium [place] (Atrovent) 500 mcg Q6HRT HHN 06/24/20 13:00 06/29/20 12:59 06/26/20 07:50 Ondansetron HCl (Zofran) 4 mg Q4H PRN IVP Nausea & Vomiting 06/23/20 13:30 07/23/20 13:29 Pantoprazole (Protonix) 40 mg DAILY ORAL 06/20/20 09:00 07/20/20 08:59 06/26/20 08:55 Prednisone (predniSONE) 40 mg DAILY ORAL 06/26/20 09:00 06/30/20 09:00 06/26/20 08:55 Tamsulosin HCl (Flomax) 0.4 mg BEDTIME ORAL 06/24/20 21:00 07/24/20 20:59 06/25/20 21:23 Assessment/Plan Assessment/Plan ASSESSMENT COPD , possible exacerbation Possible PNA SOB CHF Hypoxia TAYE on CKD ( with hx of ARF requiring initiation of HD in July 2019) Hematuria r/o UTI Atrial flutter RVR Left atrial appendage thrombus ( failed ablation) Chronic venous stasis HTN DM Anemia Lymphadenopathy PLAN OF CARE tele O2 titrate to keep sat above 92%, stable on 2 L o2 hold bronchodilator treatment with Xopenex for now, given tachy on Atrovent HHN tid and prn initially IV Solumedrol 06/24 - 06/25 dc IV steroids and start 5 day course of oral prednisone 40 mg daily 06/25 -06/29 IS , encourage use fevers resolved CXR 06/22 with dependent consolidation SCX if able COVID 19 by PCR NGT complete CTX -> till 06/27 mild leuk likely 2 /[address] A/P revealed -Small right trace left pleural effusions with adjacent atelectasis versus consolidation of the bilateral lower lobes. - Small foci of groundglass opacification in the left apex. Findings may potentially be related to a multifocal pneumonia continue Ceftriaxone for now while waiting fro COVID 19 by PCR results if COVID NGT and CXR this am stable, will consider stop abx in am, after [address] C /A/P also revealed -> Nonspecific lymphadenopathy with prominent lymph nodes noted in the left axillary region and smaller lymph nodes noted in the mediastinum, retroperitoneum and pelvis. Lymphadenopathy potentially reactive however neoplastic lymphadenopathy not excluded. recommended CT C/A/P to be repeated as OP to r/o lymphoproliferative disorder BCX NGTD influenza screen NGT UA no evidence of UTI, fup with UCX creat at baseline, Hgb at baseline 06/24 hematuria off Xarelto seen by urologist, Berger cath changed, no clots seen, irrigated easily urine dark eber urologist presumed hematuria probably trauma related cysto recommended as OP venous Duplex BLE NGT Xarelto off for now ( was given for L atrial thrombus ( noted on LLUVIA prior, failed ablation) was off diuresis prior given hypotension now diuresis resumed, with close monitoring of volumes BP management with CCB ECHO with pEF ; rate control with Cardizem off BB given risk for bronchospasm per cardio EP unable to cardioverted due to LA thrombus ( shown on LLUVIA last month), cardio recommends to continue a/c for 3 months, rate control with BB ( dose increased for better rate control) repeat LLUVIA and cardioversion later monitor and correct e/lytes as needed - per nephro recs creat trending down GI prophylaxis BS with SSI , Hgb A1c-8.2 diabetic diet and diabetic teaching monitor HH with goal to keep Hgb > [address] 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
--- NOTE | 2020-06-26 11:58 | Internal Med Progress Note ---
Subjective Date of Service: Jun 26, 2020 Physician Name Eric Palacios Attending Physician Jarek Shoemaker MD Current Medications Medications (Trade) Dose Ordered Sig/Deedee Route PRN Reason Start Time Stop Time Status Last Admin Dose Admin Acetaminophen (Tylenol) 650 mg Q4H PRN ORAL Temp >100.5 06/19/20 22:45 07/19/20 22:44 06/20/20 20:54 Acetaminophen (Tylenol) 650 mg Q4H PRN RECTAL Mild Pain (Pain Scale 1-3) 06/19/20 22:45 07/19/20 22:44 Acetaminophen/ Hydrocodone Bitart ([place] 10/325) 1 tab Q6H PRN ORAL PAIN 4-8 06/21/20 19:15 06/28/20 19:14 06/25/20 09:23 Amlodipine Besylate (Norvasc) 5 mg DAILY ORAL 06/23/20 16:30 07/23/20 16:29 06/26/20 08:55 Ceftriaxone Sodium 1 gm/ Dextrose 55 ml @ 110 mls/hr Q24H IVPB 06/20/20 14:00 06/27/20 13:59 06/25/20 14:41 Dextrose (Dextrose 50%) 25 ml Q30M PRN IV Hypoglycemia 06/19/20 22:45 09/17/20 22:44 Dextrose (Dextrose 50%) 50 ml Q30M PRN IV Hypoglycemia 06/19/20 22:45 09/17/20 22:44 Diltiazem HCl (Cardizem Tab) 60 mg EVERY 6 HOURS ORAL 06/24/20 12:00 07/24/20 11:59 06/26/20 06:16 Finasteride (Proscar) 5 mg DAILY ORAL 06/24/20 14:15 09/22/20 14:14 06/26/20 08:55 Furosemide (Lasix) 40 mg EVERY 12 HOURS IV 06/24/20 11:45 07/24/20 11:44 06/26/20 08:54 Gabapentin (Neurontin) 800 mg DAILY ORAL 06/20/20 09:00 07/20/20 08:59 06/26/20 08:54 Guaifenesin/ Dextromethorphan (Robitussin DM Syrup) 10 ml Q4H PRN ORAL For Cough 06/26/20 05:30 09/24/20 05:29 06/26/20 06:16 Ipratropium [place] (Atrovent) 500 mcg Q4H PRN HHN Shortness of Breath 06/24/20 11:45 06/29/20 11:44 Ipratropium [place] (Atrovent) 500 mcg Q6HRT HHN 06/24/20 13:00 06/29/20 12:59 06/26/20 07:50 Ondansetron HCl (Zofran) 4 mg Q4H PRN IVP Nausea & Vomiting 06/23/20 13:30 07/23/20 13:29 Pantoprazole (Protonix) 40 mg DAILY ORAL 06/20/20 09:00 07/20/20 08:59 06/26/20 08:55 Prednisone (predniSONE) 40 mg DAILY ORAL 06/26/20 09:00 06/30/20 09:00 06/26/20 08:55 Tamsulosin HCl (Flomax) 0.4 mg BEDTIME ORAL 06/24/20 21:00 07/24/20 20:59 06/25/20 21:23 Allergies: Coded Allergies: No Known Allergies (Unverified , 07/21/19) ROS Limited/Unobtainable: No Constitutional: Reports: no symptoms HEENT: Reports: no symptoms Cardiovascular: Reports: no symptoms Respiratory: Reports: no symptoms Gastrointestinal/Abdominal: Reports: no symptoms Genitourinary: Reports: hematuria Neurologic/Psychiatric: Reports: no symptoms Subjective 70 YO M admitted with dyspnea and edema. Now atrial flutter and left atrial thrombus. Cover for Int Adarsh-Dr Nava Objective Last Vital Signs Date Time Temp Pulse Resp B/P (MAP) Pulse Ox O2 Delivery O2 Flow Rate FiO2 06/26/20 09:00 Nasal Cannula 2.0 06/26/20 08:55 94 137/72 06/26/20 08:00 98.2 16 97 06/26/20 07:55 28 Laboratory Tests Test 06/25/20 16:54 06/26/20 07:25 POC Whole Blood Glucose 256 MG/DL (74-106) H White Blood Count 12.4 K/UL (4.8-10.8) H Red Blood Count 3.23 M/UL (4.70-6.10) L Hemoglobin 9.0 G/DL (14.2-18.0) L Hematocrit 27.3 % (42.0-52.0) L Mean Corpuscular Volume 85 FL (80-99) Mean Corpuscular Hemoglobin 27.9 PG (27.0-31.0) Mean Corpuscular Hemoglobin Concent 33.0 G/DL (32.0-36.0) Red Cell Distribution Width 17.1 % (11.6-14.8) H Platelet Count 151 K/UL (150-450) Mean Platelet Volume 8.3 FL (6.5-10.1) Neutrophils (%) (Auto) % (45.0-75.0) Lymphocytes (%) (Auto) % (20.0-45.0) Monocytes (%) (Auto) % (1.0-10.0) Eosinophils (%) (Auto) % (0.0-3.0) Basophils (%) (Auto) % (0.0-2.0) Differential Total Cells Counted 100 Neutrophils % (Manual) 92 % (45-75) H Lymphocytes % (Manual) 6 % (20-45) L Monocytes % (Manual) 2 % (1-10) Eosinophils % (Manual) 0 % (0-3) Basophils % (Manual) 0 % (0-2) Band Neutrophils 0 % (0-8) Platelet Estimate Adequate Platelet Morphology Normal Anisocytosis 1+ Sodium Level 138 MMOL/L (136-145) Potassium Level 3.7 MMOL/L (3.5-5.1) Chloride Level 101 MMOL/L (98-107) Carbon Dioxide Level 32 MMOL/L (21-32) Anion Gap 5 mmol/L (5-15) Blood Urea Nitrogen 32 mg/dL (7-18) H Creatinine 1.7 MG/DL (0.55-1.30) H Estimat Glomerular Filtration Rate 48.4 mL/min (>60) Glucose Level 196 MG/DL (74-106) H Calcium Level 8.6 MG/DL (8.5-10.1) Intake and Output 06/25/20 06/26/20 19:00 07:00 Output Total 750 ml Balance -750 ml Output Urine Total 750 ml # Bowel Movements 1 Objective Objective GENERAL: Awake, awake, responsive, no acute distress. HEAD AND NECK: Pupils are equal and reactive to light. Extraocular movements are intact. Neck was supple. No JVD. LUNGS: Good bilateral air entry. No wheezing or rales. Decreased air in bases HEART: S1, S2. irregular, no murmur or gallop. ABDOMEN: Soft, nondistended, and nontender. Mildly obese. EXTREMITIES: +2 edema in bilateral lower extremity, right greater than left NEUROLOGIC: CINDER BLOCK [place]ON 2 through 12 grossly intact, motor is 5/5 in all extremities. RECTAL: Refused and deferred. GENITOURINARY: Refused and deferred. PSYCHIATRIC: Mood and affect is intact. Assessment/Plan Assessment/Plan Assessment/Plan Assessment/Plan Assessment/Plan ASSESSMENT: 1. Shortness of breath and leg edema, most likely secondary to acute on chronic congestive heart failure. 2. Acute kidney injury on chronic renal insufficiency. 3. History of atrial flutter with rapid ventricular rate. 4. Lung infiltrate, possible pneumonia. 5. History of left atrial appendage thrombus in May 2019. 6. Anemia. 7. Hypertension. 8. Morbid obesity. 9. Diabetes type 2, poorly controlled. 10. Diastolic dysfunction. 11. CHF 12. COPD 13. Hematuria PLAN: 1. Admit the patient to monitored unit. 2. We will follow up with an echocardiogram. 3. Follow up with Dr. Jarek Shoemaker = Nephrology 4. Dr. Jose Juan Fischer = Cardiology, . 5. Abx: Rocephin IV. 6. Code status is Full Code. 7. DVT prophylaxis=already on xarelto for Left atrial thrombus 8. Dr. Jamie Carpio = Pulmonary and Critical Care 9. Urology=Eric Moore MD Jun 26, 2020 11:58
[2020-06-26 12:00] VITALS: BP 133/69
[2020-06-26] MEDS: cefTRIAXone 1 GM in D5W 55 ML IVPB SCH (14:00)
[2020-06-26] MEDS ORDERED: DILTIAZEM HCL60 MG ORAL (17:36)
[2020-06-26] MEDS ORDERED: FUROSEMIDE40 MG ORAL (17:36)
--- NOTE | 2020-06-26 17:39 | Nephrology Progress Note ---
Assessment/Plan Problem List: (1) Acute on chronic renal failure Assessment: worse (2) CHF (congestive heart failure) (3) DM (diabetes mellitus) (4) COPD (chronic obstructive pulmonary disease) Plan Dc mendez Dc home today will start Anticoagulation as oupt if no bleed Subjective Subjective feels ok Objective Objective Last 24 Hour Vital Signs Date Time Temp Pulse Resp B/P (MAP) Pulse Ox O2 Delivery O2 Flow Rate FiO2 06/26/20 13:07 95 18 99 Nasal Cannula 2.0 28 94 18 96 06/26/20 12:27 100 137/72 06/26/20 12:00 100 06/26/20 12:00 97.9 100 16 133/69 (90) 96 06/26/20 09:00 Nasal Cannula 2.0 06/26/20 08:55 94 137/72 06/26/20 08:00 105 06/26/20 08:00 98.2 94 16 137/72 (93) 97 06/26/20 07:55 92 18 100 Nasal Cannula 2.0 28 90 18 97 06/26/20 06:16 93 132/79 06/26/20 04:00 93 06/26/20 03:53 98.7 93 18 132/79 (96) 98 06/26/20 00:42 91 18 100 Nasal Cannula 2.0 28 88 18 97 06/26/20 00:22 113 135/93 06/26/20 00:00 100 06/26/20 00:00 98.1 113 18 135/93 (107) 99 06/25/20 21:00 Nasal Cannula 2.0 06/25/20 20:00 98.5 92 18 139/84 (102) 100 06/25/20 20:00 100 06/25/20 19:33 94 18 100 Nasal Cannula 2.0 28 92 18 98 06/25/20 18:26 95 136/79 Intake and Output 06/25/20 06/26/20 19:00 07:00 Output Total 750 ml Balance -750 ml Output Urine Total 750 ml # Bowel Movements 1 Laboratory Tests 06/26/20 07:25: White Blood Count 12.4H, Red Blood Count 3.23L, Hemoglobin 9.0L, Hematocrit 27.3L, Mean Corpuscular Volume 85, Mean Corpuscular Hemoglobin 27.9, Mean Corpuscular Hemoglobin Concent 33.0, Red Cell Distribution Width 17.1H, Platelet Count 151, Mean Platelet Volume 8.3, Neutrophils (%) (Auto) , Lymphocytes (%) (Auto) , Monocytes (%) (Auto) , Eosinophils (%) (Auto) , Basophils (%) (Auto) , Differential Total Cells Counted 100, Neutrophils % (Manual) 92H, Lymphocytes % (Manual) 6L, Monocytes % (Manual) 2, Eosinophils % (Manual) 0, Basophils % (Manual) 0, Band Neutrophils 0, Platelet Estimate Adequate, Platelet Morphology Normal, Anisocytosis 1+, Sodium Level 138, Potassium Level 3.7, Chloride Level 101, Carbon Dioxide Level 32, Anion Gap 5, Blood Urea Nitrogen 32H, Creatinine 1.7H, Estimat Glomerular Filtration Rate 48.4, Glucose Level 196H, Calcium Level 8.6 Height (Feet): 5 Height (Inches): 6.00 Weight (Pounds): 181 Cardiovascular: normal rate Respiratory/Chest: lungs clear Jarek Shoemaker MD Jun 26, 2020 17:39
[2020-06-26 18:07] VITALS: BP 137/72
--- NOTE | 2020-06-27 12:18 | Discharge Summary ---
Discharge Summary Discharge Summary _ DATE OF ADMISSION: 06/19/2020 DATE OF DISCHARGE: 06/26/2020 DISCHARGED BY: Dr. Nava REASON FOR ADMISSION: 70-year-old male with past medical history significant for atrial flutter, asthma, arthritis, diabetes type 2, hypertension, chronic kidney disease with history of acute renal failure in July 2019, requiring start of hemodialysis, presented to the emergency department complaining about increased shortness of breath and pedal edema. The patient was recently hospitalized at [facility] due to the same symptoms of shortness of breath, and noted to be in atrial flutter with rapid ventricular rate. The patient subsequently was discharged home,but stated that legs have become gradually more edematous and Lasix was increased from 40 mg to 80 mg. The patient reports increased generalized weakness, lower back pain and shortness of breath associated with pedal edema. Shortly after initial evaluation in the emergency department, the patient was admitted to the hospital with worsening of leg edema, possible due to acute congestive heart failure and atrial fibrillation, rapid ventricular rate. CONSULTANTS: dairy nutrition specialist Dr. Fischer pulmonary Dr. Carpio dry janitor Dr. Shoemaker urology [facility] COURSE: Patient admitted to monitored floor. Given low-grade fevers, complaints of dry cough , and chest x-ray findings, patient started on broad-spectrum antibiotic for probable PNA. DVT prophylaxis provided. Supplemental oxygen provided and titrated to keep pulse oximetry above 92%. Patient initially started on bronchodilator treatment , using Xopenex, however due to atrial flutter with rapid ventricular response , it stopped. Patient later started on ipratropium [id number] and as needed. Patient started on IV Solu-Medrol and then tapered to 5 days of oral prednisone to complete the course. Use of incentive spirometry was encouraged. Fevers resolved. Follow-up chest x-ray shows dependent consolidation. COVID-19 by PCR came back negative. Patient completed ceftriaxone. Mild leukocytosis was likely due to steroids. CT of the abdomen and pelvis revealed small trace of left pleural effusion with adjacent atelectasis versus consolidation of the bilateral lower lobes. Small focal ground-glass opacification on the left. CT scan of the chest , abdomen , and pelvis also revealed nonspecific lymphadenopathy with a prominent lymph nodes noted in the left axillary region and smaller lymph nodes noted in the mediastinum, retroperitoneum and pelvis. Lymphadenopathy potentially reactive , however neoplastic lymphadenopathy was not excluded , and patient was recommended to repeat CT scan of the chest abdomen as outpatient to rule out lymphoproliferative disorder. Echocardiogram revealed preserved ejection fraction. Rate was controlled with Cardizem . Blood pressure remained stable with current medication. Patient was off beta-blockade given risk for bronchospasm. Patient prior was unable to be cardioverted due to PAUL thrombus , shown on LLUVIA last month . Report Manager recommended to continue anticoagulation for 3 months /Xarelto and then repeat LLUVIA and cardioversion later. Venous duplex bilateral lower extremity was negative. Patient initially was on diuresis and then stopped secondary to hypotension ; then diuresis resumed with close monitoring of volumes and cardiorenal parame ters . Creatinine remained at the baseline. Blood cultures were negative. Influenza screen test was negative. Urinalysis revealed no evidence of UTI. Patient showed episode of hematuria on 06/24 . Xarelto was stopped. Patient was seen by urologist. Berger catheter was changed; no clots were seen . Catheter was irrigated easily. Urologist presumed hematuria was probably trauma related Cystoscopy was recommended as outpatient. Hemoglobin and hematocrit were closely monitored with goal to keep hemoglobin above 7. Hemoglobin remained at baseline. GI prophylaxis provided. Renal parameters and electrolytes were closely monitored . Nephrotoxic's were avoided . Electrolytes corrected as needed. Creatinine from 3.4 down to 1.7 upon discharge. Blood sugar was managed with sliding scale of insulin. Hemoglobin A1c 8.2. Diabetic diet and diabetic teaching provided. Pain management was addressed as needed. CT of the abdomen and pelvis revealed evidence of DJD of the spine , but no acute findings. Fall precaution maintained ; patient was working with physical therapist. Report Manager recommended to resume anticoagulation soon , given risk for CVA. Supportive care provided. Patient clinically stabilized and was ready for discharge outpatient will be started No further bleeding. Hemoglobin and hematocrit stable. Berger catheter was discontinued prior to discharge. Anticoagulation will be restarted as n outpatient . Patient clinically stabilized and was ready for discharge home. FINAL DIAGNOSES: COPD , possible exacerbation Probably pneumonia, status post treatment Congestive heart failure Acute kidney injury on chronic kidney disease History of acute renal failure requiring initiation of hemodialysis in July 2019 Atrial flutter with rapid ventricular response Left atrial appendage thrombus ( failed ablation) Chronic venous stasis Hypertension Diabetes mellitus Anemia Lymphadenopathy DISCHARGE MEDICATIONS: See Medication Reconciliation list. DISCHARGE INSTRUCTIONS: Patient was discharged home. Follow-up with a primary care provider in 1 week. I have been assigned to dictate discharge summary for this account. Reny Muhammad NP Jun 27, 2020 12:18
--- NOTE | 2020-07-02 21:22 | Coder Physician Query ---
Clarification is required for compliance, coding accuracy, and to reflect severity of illness for this patient Dear Dr. MATA Date: 07/02/20 Furniture Packer/CDS Name:IGNACIO QUIÑONEZ "Heart Failure / CHF" query -- 06/19/20 - BNP [id number] EF: 60-65% Echocardiogram revealed preserved ejection fraction. Rate was controlled with Cardizem . Blood pressure remained stable with current medication. Patient was off beta-blockade given risk for bronchospasm. Patient prior was unable to be cardioverted due to PAUL thrombus , shown on LLUVIA last month . Machinist Linotype recommended to continue anticoagulation for 3 months /Xarelto and then repeat LLUVIA and cardioversion later. Venous duplex bilateral lower extremity was negative. Patient initially was on diuresis and then stopped secondary to hypotension ; then diuresis resumed with close monitoring of volumes and cardiorenal parameters . Creatinine remained at the baseline. FINAL DIAGNOSES: COPD , possible exacerbation Probably pneumonia, status post treatment Congestive heart failure Please Clarify the congestive heart failure: Acuity [] Acute [] Chronic [] Acute on Chronic Type [] Systolic [] Diastolic [] Systolic & Diastolic (Combined) [] Other: Physician signature Date Please also document in your Progress Notes and/or Discharge Summary and indicate if the condition was present on admission. SAMMY
== END 2020-06-26 19:15 | disposition home or self-care (01) | DRG 682 ==
LOC: EMR 15:59 → 2E 17:22 → EDBEDREQ 06-20 01:54 → 2E 06-20 04:42
DX: I13.10 Hypertensive heart and chronic kidney disease without heart failure, with stage 1 through stage 4 chronic kidney disease, or unspecified chronic kidney disease (principal); J18.9 Pneumonia, unspecified organism; N17.9 Acute kidney failure, unspecified; I48.92 Unspecified atrial flutter; J44.0 Chronic obstructive pulmonary disease with (acute) lower respiratory infection; J44.1 Chronic obstructive pulmonary disease with (acute) exacerbation; E11.22 Type 2 diabetes mellitus with diabetic chronic kidney disease; I51.3 Intracardiac thrombosis, not elsewhere classified; N18.9 Chronic kidney disease, unspecified; I95.9 Hypotension, unspecified; E66.01 Morbid (severe) obesity due to excess calories; E11.65 Type 2 diabetes mellitus with hyperglycemia; Z99.2 Dependence on renal dialysis; R59.1 Generalized enlarged lymph nodes; D64.9 Anemia, unspecified; R31.0 Gross hematuria; N40.1 Benign prostatic hyperplasia with lower urinary tract symptoms; R33.8 Other retention of urine; N31.9 Neuromuscular dysfunction of bladder, unspecified; I87.8 Other specified disorders of veins
CPT/HCPCS: 36415; 71045; 71250; 74176; 80048; 80053; 80061; 81001; 81003; 82803; 82962; 83036; 83605; 83690; 83735; 83880; 84443; 84484; 85007; 85025; 85379; 86710; 87040; 87070; 87086; 87205; 93005; 93306; 93970; 94640; 96374; 99285; J8499